=== PATIENT | female | born 1965 | race Caucasian/White ===

== ENCOUNTER → 2016-07-24 | Outpatient (CLI) | payer OTHER ==
[2016-07-24 13:50] LABS: Basophils # (A) 0.1 k/uL (0-0.2); Basophils % (A) 1 %; CH 29.2; CHCM 32.5; Eosinophils # (A) 0.4 k/uL (0-0.7); Eosinophils % (A) 6 %; HCT 39.4 % (34.0-46.0); HDW 2.72; HGB 12.7 gm/dL (11.4-16.0); Luc % (Auto) 3; Lymphocytes # (A) 2.8 k/uL (1.0-4.8); Lymphocytes % (A) 40 %; MCH 29.2 pg (25.0-35.0); MCHC 32.2 g/dL (31.0-37.0); MCV 90.6 fL (80.0-100.0); Mean Platelet Volume 6.1; Monocytes # (A) 0.3 k/uL (0-1.0); Monocytes % (A) 4 %; Neutrophils # (A) 3.2 k/uL (1.3-7.7); Neutrophils % (A) 46 %; RBC 4.35 m/uL (3.80-5.40); RDW 14.4 % (11.5-15.5); WBC 6.9 k/uL (3.8-10.6); WBC (Perox) 7.49
[2016-07-24 13:57] LABS: ALT 32 U/L (9-52); AST 22 U/L (14-36); Alkaline Phosphatase 114 U/L (38-126); Anion Gap 9 mmol/L; Bilirubin, Delta 0.2 mg/dL (0.0-0.2); Blood Urea Nitrogen 17 mg/dL (7-17); Calcium 9.7 mg/dL (8.4-10.2); Carbon Dioxide 28 mmol/L (22-30); Chloride 106 mmol/L (98-107); Cholesterol 305 mg/dL (<200); Glucose 82 mg/dL (74-99); HDL Cholesterol 43 mg/dL (40-60); Non-African American GFR(MDRD) 52 (>60 ml/min/1.73 sqM); Potassium 4.8 mmol/L (3.5-5.1); Sodium 143 mmol/L (137-145); Total Bilirubin 0.3 mg/dL (0.2-1.3); Total Protein 7.2 g/dL (6.3-8.2); Triglycerides 436 mg/dL (<150)
[2016-07-24 14:45] LABS: Vitamin B12 712 pg/mL (239-931)
== END | disposition home or self-care (01) ==
LOC: LABWHC1 13:20
DX: K76.0 Fatty (change of) liver, not elsewhere classified (principal); E78.2 Mixed hyperlipidemia; E55.9 Vitamin D deficiency, unspecified; Z79.899 Other long term (current) drug therapy
CPT/HCPCS: 36415; 80053; 80061; 82105; 82248; 82306; 82607; 84439; 84443; 85025

== ENCOUNTER → 2016-08-31 | Outpatient (CLI) | payer OTHER ==
[2016-08-31 09:52] LABS: Bilirubin, Delta 0.3 mg/dL (0.0-0.2); Total Bilirubin 0.5 mg/dL (0.2-1.3); Total Protein 7.7 g/dL (6.3-8.2)
--- NOTE | 2016-08-31 15:50 | US ---
EXAMINATION TYPE: US portal vein DATE OF EXAM: 08/31/2016 10:56 AM COMPARISON: NONE CLINICAL HISTORY: K76.0 Fatty (change of) liver, not elsewhere class. 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 no IMPRESSION: 1. Mild Fatty infiltration the liver. 2. Normal portal vein flow
== END | disposition home or self-care (01) ==
LOC: RADUSWWP 08:39
DX: K76.0 Fatty (change of) liver, not elsewhere classified (principal)
CPT/HCPCS: 36415; 80076; 93976

== ENCOUNTER → 2017-12-13 | Outpatient (CLI) | payer OTHER ==
--- NOTE | 2017-12-13 13:35 | MM ---
Reason for exam: additional evaluation requested from abnormal screening. Last mammogram was performed less than 1 month ago. History: Patient history of other cancer. Family history of breast cancer in paternal grandmother at age 58 and breast cancer in maternal grandmother at age 65. Taking estrogen beginning at age 49. Physical Findings: Nurse did not find any significant physical abnormalities on exam. MG Work Up Mamm w CAD RT CC and MLO view(s) were taken of the right breast. Prior study comparison: December 06, 2017, bilateral MG screening mammo w CAD. June 10, 2012, CAD bilateral diagnostic mammogram. The breast tissue is heterogeneously dense. This may lower the sensitivity of mammography. Finding: There are coarse heterogeneous, segmental calcifications in the upper outer quadrant, middle position of the right breast 4cm from the nipple. New finding since June 10, 2012. These results were verbally communicated with the patient and result sheet given to the patient on 12/13/17. ASSESSMENT: Suspicious, BI-RAD 4 RECOMMENDATION: Stereotactic core biopsy of the right breast. Called [facility] with mammographic findings and has scheduled an appointment for the patient for 01/03/18 at 12:[address] Harrington. Biopsy scheduled for 01/04/18 at 8:00. PRELIMINARY REPORT CALLED AND FAXED TO DR. HARRINGTON ON 12/13/17.
== END | disposition home or self-care (01) ==
LOC: RADMAMWWP 10:42
PROVIDERS: ATTEND Internal Medicine
DX: R92.8 Other abnormal and inconclusive findings on diagnostic imaging of breast (principal)
CPT/HCPCS: 77065

== ENCOUNTER → 2018-01-03 | Outpatient (CLI) | payer OTHER ==
--- NOTE | 2018-01-03 13:18 | P.GSHP ---
History of Present Illness H&P Date: 01/03/18 The patient is a 52-year-old white female [place] [id number]. On the mammogram she was noted to have new increased calcifications in the central 9 o'clock position of the right breast. The patient was recommended to undergo additional views of the right breast which were performed in which revealed again coarse heterogeneous segmental calcifications in the upper outer quadrant middle position of the right breast. Following this it was recommended she undergo a stereotactic core biopsy of the right breast. The patient does not feel anything in her breast, she has no nipple discharge or skin changes. Family history: 1.mother: bone, breast and colon cancer (dx. 60's) 2. grandmother maternal: bone cancer, breast cancer, and colon cancer (dx. in late 60's) 3. paternal grandmother: breast, uterine cancer (dx. late 60's) Hormonal history: Menarche: 12 Pregnancies: 2, 2 live births first at 20, breast fed: Both Menopause: No. For 3 years but still has hot flashes control pills: Negative Hormones: estrogen for three months Surgical history: 1. shoulder 2. tubal Medical history: Negative Social history: Smoke:1/2 PPD 40 years Alcohol: Negative Drugs: Negative - Constitutional Constitutional: Reports sweats - EENT Eyes: denies blurred vision, denies pain Ears: deny: decreased hearing, tinnitus Ears, nose, mouth and throat: Denies headache, Denies sore throat - Breasts Breasts: bilateral: as per HPI - Cardiovascular Cardiovascular: Denies chest pain, Denies shortness of breath - Respiratory Comment: smoker Respiratory: Reports cough - Gastrointestinal Gastrointestinal: Denies abdominal pain, Denies diarrhea, Denies nausea, Denies vomiting - Genitourinary (Female) Genitourinary: Reports kidney stones - Menstruation Menstruation: Reports postmenopausal - Musculoskeletal Comment: arthritis - Integumentary Integumentary: Denies pruritus, Denies rash - Neurological Comment: carpal tunnel Neurological: Reports numbness, Denies weakness - Psychiatric Comment: bipolar Psychiatric: Reports depression - Endocrine Endocrine: Reports weight change, Denies fatigue - Hematologic/Lymphatic Comment: none - Allergic/Immunologic Comment: none Past Medical History Past Medical History: Liver Disease Additional Past Medical History / Comment(s): Hepatitis B (RESOLVED per patient during phone call on 12/25/17), blood in stool, n/v, KIDNEY STONE, non-alcoholic cirrhosis of liver History of Any Multi-Drug Resistant Organisms: None Reported Past Surgical History: Orthopedic Surgery, Tubal Ligation Additional Past Surgical History / Comment(s): left shoulder surgery x3, coloposcopy for cervical cancer cells. Past Anesthesia/Blood Transfusion Reactions: No Reported Reaction Past Psychological History: Anxiety, Bipolar, Depression Smoking Status: Current every day smoker Past Alcohol Use History: None Reported Past Drug Use History: Marijuana - Past Family History Mother Family Medical History: Cancer Additional Family Medical History / Comment(s): Colon, Bone Father Family Medical History: Cancer Additional Family Medical History / Comment(s): Lung Medications and Allergies Home Medications Medication Instructions Recorded Confirmed Type ARIPiprazole [Abilify] 5 mg PO HS 12/03/13 12/25/17 History Gabapentin [Neurontin] 800 mg PO TID 12/03/13 12/25/17 History hydrOXYzine PAMOATE [Vistaril] 50 mg PO TID 12/03/13 12/25/17 History Allergies Allergy/AdvReac Type Severity Reaction Status Date / Time No Known Allergies Allergy Verified 12/25/17 10:38 Surgical - Exam - General well developed, well nourished, no distress - Eyes normal ocular movement - ENT no hearing loss, no congestion - Neck no masses, trachea midline - Respiratory bilateral: wheezing - Cardiovascular Rhythm: regular Heart Sounds: normal: S1, S2 - Abdomen Abdomen: soft, non tender, bowel sounds, no guarding, no rigid, no rebound - Integumentary Multiple tattoos - Neurologic no disoriented, no combative - Musculoskeletal normal gait, normal posture - Psychiatric oriented to time, oriented to person, oriented to place, speech is normal, memory intact Breast examination: Right breast: Multiple positional exam no dominant masses or nodules of concern Right axilla: No adenopathy of concern Left breast: Multi-positional exam no dominant masses or nodules of concern Left axilla: No dominant adenopathy of concern Results Mammogram report reviewed Assessment and Plan Assessment: Impression: 1. Mammographic abnormality right breast 2. Bipolar 3. Arthritis 4. Nicotine dependence/wheezing Plan: 1. Stereotactic breast biopsy right breast 2. Medical management of medical problems Risk and benefits sister tachycardia breast breast were discussed with the patient and she is scheduled for a stereotactic breast biopsy in the near future. Cc: Dr. Carrillo ([facility])
== END ==
LOC: WWCWWP 12:28
PROVIDERS: ATTEND Surgery
DX: Z53.9 Procedure and treatment not carried out, unspecified reason (principal)

== ENCOUNTER → 2018-01-10 | Day surgery (SDC) | payer OTHER ==
[2018-01-10 07:21] VITALS: RESP 16; BMI 30.7
--- NOTE | 2018-01-10 09:25 | PCN ---
PROCEDURE NOTE PRE PROCEDURE DIAGNOSIS: Right breast mammographic abnormality lateral mid breast. POSTPROCEDURE DIAGNOSIS: Right breast mammographic abnormality lateral mid breast. PROCEDURE: Right breast stereotactic core biopsy. SURGEON: Lachelle Harrington MD INDICATIONS: The patient is a 52-year-old white female who on a screening mammogram was noted to have an area of suspicious calcifications in the right breast in the slightly more lateral midportion of the breast. The films were reviewed and it was felt that stereotactic core biopsy was indicated. The patient on physical examination did not have any dominant masses or nodules in either breast. Both right and left breast mammogram were reviewed. PROCEDURE DESCRIPTION: The patient was taken to the stereotactic core room and placed on the Lorad table. The area in the right breast was approached from a lateral to medial approach. The area was identified on tax map technician film and targeted. Following this, a 9-gauge vacuum-assisted core needle biopsy was chosen for the biopsy procedure. The skin was prepped using Betadine; 1% lidocaine with bicarb was used to anesthetize the skin. Approximately 20 mL was utilized. The needle was driven to the correct coordinates after they had been transmitted. Pre-fire films were obtained. This was noted to be in the correct location and post-fire films were obtained. This was done after the needle device had been fired. Approximately 13 core biopsies were then obtained. Radiograph of the specimen revealed the area of concern had been sampled as microcalcifications which have been targeted were in the specimen. A secure eris top-hat clip was then left behind and confirmed to be in the correct location. The specimen was sent to Pathology. The patient tolerated the procedure in stable condition. The patient will follow with Dr. Ch in approximately 1 week. There were no immediate postoperative complications. MMODL / IJN: [id number] /
[2018-01-10 09:28] VITALS: BP 138/82; PULSE 59; TEMP 98.1
--- NOTE | 2018-01-10 16:23 | MM ---
EXAMINATION TYPE: MG stereo VAD BX RT DATE OF EXAM: 01/10/2018 COMPARISON: 12/06/2017 CLINICAL HISTORY: Abnormal right breast mammogram, calcifications TECHNIQUE: Stereotactic guided core biopsy of right breast. FINDINGS: Targeting and the procedure was performed by surgery. Specimen: Mammographic specimen demonstrates calcifications within the sample Post procedure mammogram was ordered by the surgeon. The core marker appears to be slightly retracted from the expected region of the calcifications. There is a partial resection of the calcifications targeted. Close correlation with pathology results recommended. IMPRESSION: 1. Successful stereotactic core biopsy right breast calcifications. 2. Core marker placement appears slightly shallow which may be related to accordion effect following placement. Close correlation with biopsy results. Pathology Results: Benign RIGHT BREAST, NEEDLE CORE BIOPSY: Fibrocystic spectrum disease with stromal fibrosis, duct cystic changes and focal micropapillary intraductal hyperplasia with apocrine metaplasia. Foci of intraductal mineralizations. Recommendation Follow up mammogram of the right breast in 6 months. MTDD
== END ==
LOC: RADUSWWP 06:51
PROVIDERS: ATTEND Surgery
DX: N60.31 Fibrosclerosis of right breast (principal); N60.91 Unspecified benign mammary dysplasia of right breast; N60.81 Other benign mammary dysplasias of right breast; R92.1 Mammographic calcification found on diagnostic imaging of breast; R92.8 Other abnormal and inconclusive findings on diagnostic imaging of breast
CPT/HCPCS: 88305; 19081; A4648; J2001

== ENCOUNTER → 2018-01-24 | Outpatient (CLI) | payer OTHER ==
[2018-01-24 13:16] VITALS: BP 110/79; PULSE 94; RESP 12; TEMP 98; BMI 27.8
--- NOTE | 2018-01-24 13:33 | P.PN ---
Subjective Progress Note Date: 01/24/18 Principal diagnosis: sterobiopsy of the right breast The patient is a 52-year-old white female status post right breast stereotactic core biopsy on . Pathology was fibrocystic spectrum disease. The patient has no complaints related to the procedure. Physical exam: Extensive inspection of the right breast does not reveal any evidence of infection or skin changes of concern No evidence of hematoma Impression: 1. Fibrocystic breast disease right breast Plan: Repeat right breast mammogram and physician exam in 6 months time CC: Dr. Cervantes/[facility] Objective - Vital Signs Vital signs: Vital Signs Temp 98 F 01/24/18 13:13 Pulse 94 01/24/18 13:13 Resp 12 01/24/18 13:13 BP 110/79 01/24/18 13:13 Pulse Ox 97 01/24/18 13:13 Intake & Output 01/23/18 01/24/18 01/24/18 18:59 06:59 18:59 Weight 71.214 kg
== END ==
LOC: WWCWWP 10:53
PROVIDERS: ATTEND Surgery
DX: Z53.9 Procedure and treatment not carried out, unspecified reason (principal)

== ENCOUNTER → 2018-07-15 | Outpatient (CLI) | payer OTHER ==
--- NOTE | 2018-07-15 11:04 | MM ---
Reason for exam: follow-up at short interval from prior study. Last mammogram was performed 7 months ago. History: Patient is postmenopausal and history of other cancer. Family history of breast cancer in paternal grandmother at age 58 and breast cancer in maternal grandmother at age 65. Benign MG stereo VAD BX RT of the right breast, January 10, 2018. Took estrogen beginning at age 49. Physical Findings: Nurse did not find any significant physical abnormalities on exam. MG Diagnostic Mammo RT w CAD CC and MLO view(s) were taken of the right breast. Prior study comparison: December 13, 2017, right breast MG work up mamm w CAD RT. December 06, 2017, bilateral MG screening mammo w CAD. There are scattered fibroglandular densities. No significant new findings when compared with previous films. These results were verbally communicated with the patient and result sheet given to the patient on 07/15/18. ASSESSMENT: Benign, BI-RAD 2 RECOMMENDATION: Return to routine screening mammogram schedule for both breasts. Back on schedule.
== END ==
LOC: RADMAMWWP 10:10
PROVIDERS: ATTEND Surgery
DX: R92.8 Other abnormal and inconclusive findings on diagnostic imaging of breast (principal)
CPT/HCPCS: 77065

== ENCOUNTER 2018-08-19 11:12 | Emergency (ER) | payer OTHER ==
[2018-08-19 11:39] VITALS: BP 128/80; PULSE 64; RESP 20; TEMP 98.1
--- NOTE | 2018-08-19 11:49 | ED ---
Skin/Abscess/FB HPI - General Chief complaint: Skin/Abscess/Foreign Body Stated complaint: left arm injury, infection Time Seen by Provider: 08/19/18 11:41 Source: patient Mode of arrival: ambulatory Limitations: no limitations - History of Present Illness Initial comments: 52yo female with history of present today for chief complaint of erythema of the left forearm x 1 day. She states she fell onto a sydni basket she states it poked into her skin on Sunday. Patient states she noted green discharge car. Yesterday she states she squeezed it out. She states there is mild surrounding redness. Patient states that she squeezed out apply peroxide appears to be improving since yesterday. Patient has a fever chills night sweats. Patient denies history of MRSA. Remaining ROS (-). Pt tetanus 3 year prior. - Related Data Home Medications Medication Instructions Recorded Confirmed ARIPiprazole [Abilify] 5 mg PO HS 12/03/13 08/19/18 Gabapentin [Neurontin] 800 mg PO TID 12/03/13 08/19/18 hydrOXYzine PAMOATE [Vistaril] 50 mg PO BID 12/03/13 08/19/18 Lisinopril-Hctz 10-12.5 mg 10 tab PO DAILY 01/03/18 08/19/18 [Zestoretic 10-12.5] Ergocalciferol [Vitamin D2] 50,000 unit PO Q7D 08/19/18 08/19/18 Multivitamins, Thera [Multivitamin 1 tab PO DAILY 08/19/18 08/19/18 (formulary)] Simvastatin [Zocor] 20 mg PO DAILY 08/19/18 08/19/18 Previous Rx's Medication Instructions Recorded Cephalexin [Keflex] 500 mg PO Q6HR 5 Days #20 cap 08/19/18 Sulfamethox-Tmp 800-160Mg [Bactrim 1 tab PO Q12HR 5 Days #10 tab 08/19/18 DS 800-160 mg] Allergies Allergy/AdvReac Type Severity Reaction Status Date / Time No Known Allergies Allergy Verified 08/19/18 11:53 Review of Systems ROS Statement: Those systems with pertinent positive or pertinent negative responses have been documented in the HPI. ROS Other: All systems not noted in ROS Statement are negative. Past Medical History Past Medical History: Hypertension, Liver Disease Additional Past Medical History / Comment(s): Hepatitis B (RESOLVED per patient during phone call on 12/25/17), KIDNEY STONE, non-alcoholic cirrhosis of liver History of Any Multi-Drug Resistant Organisms: None Reported Past Surgical History: Orthopedic Surgery, Tubal Ligation Additional Past Surgical History / Comment(s): left shoulder surgery x3, coloposcopy for cervical cancer cells. Past Anesthesia/Blood Transfusion Reactions: No Reported Reaction Past Psychological History: Anxiety, Bipolar, Depression Smoking Status: Current every day smoker Past Alcohol Use History: None Reported Past Drug Use History: Marijuana - Past Family History Mother Family Medical History: Cancer Additional Family Medical History / Comment(s): Colon, Bone Father Family Medical History: Cancer Additional Family Medical History / Comment(s): Lung General Exam - General Exam Comments Initial Comments: General: The patient is awake and alert, in no distress, and does not appear acutely ill. Eye: +3 mm pupils are equal, round and reactive to light, extra-ocular movements are intact. No nystagmus. There is normal conjunctiva bilaterally. No signs of icterus. Ears, nose, mouth and throat: There are moist mucous membranes and no oral lesions. Cardiovascular: There is a regular rate and rhythm. No murmur, rub or gallop is appreciated. Respiratory: Lungs are clear to auscultation, respirations are non-labored, breath sounds are equal. No wheezes, stridor, rales, or rhonchi. Gastrointestinal: Soft, non-distended, non-tender abdomen without masses or organomegaly noted. There is no rebound or guarding present. No CVA tenderness. Bowel sounds are unremarkable. Musculoskeletal: Normal ROM at the elbow and the wrist, no tenderness. Strength 5/5 at the elbow and the wrist. Sensation intact both proximal and distal injury site. Radial pulses equal bilaterally 2+. Neurological: A&O x 3. CN II-XII intact, There are no obvious motor or sensory deficits. Coordination appears grossly intact. Speech is normal. Skin: Skin is warm and dry and no rashes. Multiple abrasion with scabbing and surrounding erythema of the left forearm. There is no palpable fluctuant abscess. No warmth to palpation. Psychiatric: Cooperative, appropriate mood & affect, normal judgment. Limitations: no limitations Course Vital Signs 08/19/18 11:37 Temperature 98.1 F Pulse Rate 64 Respiratory 20 Rate Blood Pressure 128/80 O2 Sat by Pulse 99 Oximetry Medical Decision Making - Medical Decision Making 52-year-old presenting for left arm abrasions with possible infection. There is mild surrounding cellulitis noted to abrasions of the left forearm. Patient states tetanus up-to-date. No fluctuant abscess. Patient states is improving since yesterday. She denies any constitutional symptoms. At this time feel patient is appropriate for discharge with outpatient oral antibiotics. Possible concern for MRSA infection, patient be treated with Bactrim and Keflex with outpatient primary care f/u. Pt is agreeable with care plan and discharge at this time. This case with attending provider Dr. Almaraz over the phone prior to patient discharge agreeable with plan. Disposition Clinical Impression: Cellulitis of left forearm, Pain in left forearm, Abrasion of left forearm Disposition: HOME SELF-CARE Condition: Good Instructions (If sedation given, give patient instructions): Cellulitis (ED) Additional Instructions: Please use medication as discussed. Please follow-up with family doctor in the next 2 days. Please return to emergency room if the symptoms increase or worsen or for any other concerns. Prescriptions: Sulfamethox-Tmp 800-160Mg [Bactrim DS 800-160 mg] 1 tab PO Q12HR 5 Days #10 tab Cephalexin [Keflex] 500 mg PO Q6HR 5 Days #20 cap Is patient prescribed a controlled substance at d/c from ED?: No Referrals: [facility] [Primary Care Provider] - 1-2 days Time of Disposition: 11:48
== END 2018-08-19 12:40 | disposition home or self-care (01) ==
LOC: SUPCPDRO 11:12 → EC 11:12
DX: S50.812A Abrasion of left forearm, initial encounter (principal); L03.114 Cellulitis of left upper limb; I10 Essential (primary) hypertension; F31.9 Bipolar disorder, unspecified; F41.9 Anxiety disorder, unspecified; F17.200 Nicotine dependence, unspecified, uncomplicated; Z85.41 Personal history of malignant neoplasm of cervix uteri; Z86.19 Personal history of other infectious and parasitic diseases; Z79.899 Other long term (current) drug therapy; W01.0XXA Fall on same level from slipping, tripping and stumbling without subsequent striking against object, initial encounter; Y92.009 Unspecified place in unspecified non-institutional (private) residence as the place of occurrence of the external cause
CPT/HCPCS: 99283

== ENCOUNTER → 2019-05-16 | Day surgery (SDC) | payer OTHER ==
[2019-05-14 09:01] VITALS: BMI 29.2
[~2019-05-16] MED LIST: BUPIVACAINE (PF) 0.5% 30 ML VIAL SQ ONE; DEXAMETHASONE SOD PHOSPHATE 10 MG/ML 1 ML VIAL IV ONE; HYDROmorphone 0.5 MG/0.5 ML SYRINGE IVP PRN; LACTATED RINGERS 1,000 ML IV SCH; LIDOCAINE 1% 20 ML VIAL (10MG/ML) FOR IV START INTRADERMA PRN; LIDOCAINE 1%-EPI 1:100,000 20 ML VIAL SQ ONE; MIDAZOLAM 2 MG/2 ML VIAL ONE; PHENYLEPHRINE-0.9% NACL SYG 1 MG/10 ML SYRINGE ONE; PROPOFOL 10 MG/ML 20 ML VIAL IV ONE; Pre Op ABX Message 1 EACH MISC MISCELLANE ONE; SCOPOLAMINE 1.5MG/72HR PATCH TRANSDERM ONE; fentaNYL (PF) 50 MCG/ML 2 ML AMP ONE
[2019-05-16 11:15] VITALS: RESP 16; TEMP 96.9
[2019-05-16 13:45] VITALS: BP 155/84; PULSE 64
--- NOTE | 2019-05-17 15:08 | P.OP ---
Date of Procedure: 05/16/19 Preoperative Diagnosis: Right carpal tunnel syndrome Postoperative Diagnosis: Right carpal tunnel syndrome Procedure(s) Performed: Right endoscopic carpal tunnel release Anesthesia: MAC, local Surgeon: Tyson Pgeuero Estimated Blood Loss (ml): 1 Condition: stable Disposition: same day Indications for Procedure: The patient is a 53 year-old female who was diagnosed with right carpal tunnel syndrome. Treatment options (and associated risks and benefits) were discussed in the office. The patient elected to undergo surgical release. In preop, additional questions/concerns were addressed and the patient wished to proceed with surgery. Consent forms were signed. The operative site was confirmed and marked. Description of Procedure: The patient was positioned supine with the right arm on a hand table. A tourniquet was applied. Anesthesia was administered uneventfully. A time-out was performed, confirming patient identifiers, the operative side, site and the procedure to be performed: all team members expressed agreement. Using aseptic technique, local anesthetic was injected into the subcutaneous tissues around the planned incision. The right upper extremity was then prepped and draped in standard, sterile fashion. The limb was exsanguinated with an Esmarch and the tourniquet was inflated. Loupe magnification was used throughout the case for optimum visualization. A 1.5 cm transverse incision was marked along the radial border of the ring finger, just proximal to the wrist flexion crease. The skin was sharply incised and the subcutaneous tissues were bluntly spread. The volar carpal fascia was identified and sharply incised in line with the path of the nerve. The median nerve was visualized below. A synovial elevator was inserted and used to release adhesions on the underside of the transverse carpal ligament. The washboard effect was palpable. A dilator was inserted to sound and enlarge the carpal tunnel. The hamate hook was palpable ulnarly. The side-specific guide and camera were inserted. The transverse carpal ligament was clearly visualized above. The distal edge of the ligament was identified and palpated with a probe. A rasp was used to clear the remaining synovial adhesions. The endoscopic blade was inserted and the distal half of the ligament was sharply incised. Residual distal transverse fibers were released and then the proximal portion of the ligament was divided. Wide release of ligament was visually confirmed. The camera and guide were removed. Proximal to the incision, the volar carpal/antebrachial fascia was released with scissors under direct visualization. The tourniquet was released after 9 minutes at 250 mmHg. Good hemostasis was obtained with manual pressure. A small bleeder near the skin edge was controlled with bipolar cautery. The wound was thoroughly irrigated with normal saline. The incision was closed with interrupted 4-0 Nylon sutures. Additional local anesthetic with epinephrine was injected for adjunctive postoperative pain control and hemostasis. A soft, sterile dressing was applied. All sponge, needle and instrument counts were correct at the end of the case. The patient tolerated the procedure well; she was transferred to recovery in stable condition.
== END | disposition home or self-care (01) ==
LOC: OR 10:57
PROVIDERS: ATTEND Orthopaedic Surgery
DX: G56.01 Carpal tunnel syndrome, right upper limb (principal); I10 Essential (primary) hypertension; E78.5 Hyperlipidemia, unspecified; F17.210 Nicotine dependence, cigarettes, uncomplicated; N28.9 Disorder of kidney and ureter, unspecified; F32.9 Major depressive disorder, single episode, unspecified; H40.9 Unspecified glaucoma; R51 Headache; R45.0 Nervousness; Z79.899 Other long term (current) drug therapy; Z97.3 Presence of spectacles and contact lenses; Z82.49 Family history of ischemic heart disease and other diseases of the circulatory system
CPT/HCPCS: 64721; J2250; J1100; J3010; J2370; J2704

== ENCOUNTER 2019-11-07 11:13 | Day surgery (SDC) | payer OTHER ==
[2019-11-04 10:47] VITALS: BMI 29.2
[~2019-11-07 11:13] MED LIST changes: -BUPIVACAINE (PF) 0.5% 30 ML VIAL SQ ONE; +LIDOCAINE 1% (10MG/ML) FOR IV START INTRADERMA PRN; -LIDOCAINE 1% 20 ML VIAL (10MG/ML) FOR IV START INTRADERMA PRN; -LIDOCAINE 1%-EPI 1:100,000 20 ML VIAL SQ ONE; -MIDAZOLAM 2 MG/2 ML VIAL ONE; +ONDANSETRON 4 MG/2 ML VIAL IVP ONE; -PHENYLEPHRINE-0.9% NACL SYG 1 MG/10 ML SYRINGE ONE; -PROPOFOL 10 MG/ML 20 ML VIAL IV ONE; -fentaNYL (PF) 50 MCG/ML 2 ML AMP ONE
[2019-11-07 11:37] VITALS: RESP 16; TEMP 98.4
[2019-11-07] MEDS ORDERED: ONDANSETRON 4 MG/2 ML VIAL ONE (11:43)
[2019-11-07] MEDS ORDERED: LIDOCAINE 1%-EPI 1:100,000 20 ML VIAL INTRAARTIC ONE ×2 (12:26→12:55)
[2019-11-07] MEDS ORDERED: fentaNYL (PF) 50 MCG/ML 2 ML AMP ONE (12:44)
[2019-11-07] MEDS ORDERED: MIDAZOLAM 2 MG/2 ML VIAL ONE (12:44)
[2019-11-07] MEDS ORDERED: KETOROLAC 30 MG/ML 1 ML VIAL ONE (12:44)
[2019-11-07] MEDS ORDERED: PROPOFOL 10 MG/ML 20 ML VIAL IV ONE (12:44)
[2019-11-07 14:06] VITALS: PULSE 79
[2019-11-07 14:22] VITALS: BP 152/82
--- NOTE | 2019-11-09 17:11 | P.OP ---
Date of Procedure: 11/07/19 Preoperative Diagnosis: 1. Left carpal tunnel syndrome 2. Right trigger thumb Postoperative Diagnosis: 1. Left carpal tunnel syndrome 2. Right trigger thumb Procedure(s) Performed: 1. Left endoscopic carpal tunnel release 2. Right trigger thumb release Anesthesia: MAC, local Surgeon: Tyson Peguero Estimated Blood Loss (ml): 4 ((1 left, 3 right)) Condition: stable Disposition: same day Indications for Procedure: The patient is 53-year-old female who was diagnosed with left carpal tunnel s yndrome and a right trigger thumb. Treatment options (and associated risks and benefits) for both conditions were discussed in the office; the patient elected to undergo surgical release of both sites. In preop, additional questions were addressed and the patient wished to proceed with surgery. Consent forms were signed. Both operative sites were confirmed with the patient and marked in preop. Description of Procedure: The patient was brought to the operating suite and positioned supine. The carpal tunnel was approached first and the left arm was placed on a hand table. A tourniquet was applied. Anesthesia was administered uneventfully. A time-out was performed, confirming patient identifiers, the operative side, site and the procedure to be performed: all team members expressed agreement. Using aseptic technique, local anesthetic was injected into the subcutaneous tissues around the planned incisions, both in the left wrist and right thumb. The left upper extremity was then prepped and draped in standard, sterile fashion. The limb was exsanguinated with an Esmarch and the tourniquet was inflated. Loupe magnification was used throughout the case for optimum visualization. A 1.5 cm transverse incision was marked proximal to the wrist flexion crease, in line with the radial border of the ring finger. The skin was sharply incised and the subcutaneous tissues were bluntly spread. The volar carpal fascia was identified and noted to be quite thickened, causing focal compression. The volar carpal fascia was sharply incised in line with the path of the nerve and the antebrachial fascia proximally was also released with scissors under direct visualization. The median nerve was visualized below. The surrounding subcutaneous tissues were somewhat thickened and proliferative, consistent with a chronic inflammatory response. A synovial elevator was inserted and used to release adhesions on the underside of the transverse carpal ligament. The washboard effect was palpable. A dilator was inserted to sound and enlarge the carpal tunnel. The hamate hook was palpable ulnarly. The side-specific guide and camera were inserted. The transverse carpal ligament was clearly visualized above. The distal edge of the ligament was identified and palpated with a probe. A rasp was used to clear the remaining synovial adhesions. The endoscopic blade was inserted and the distal half of the ligament was sharply incised it was quite thick. Residual distal transverse fibers were released and then the proximal portion of the ligament was divided. Once completely released, the leaflets spread widely apart. The camera and guide were removed. The tourniquet was released after 14 minutes at 175 mmHg. Excellent hemostasis was obtained with manual pressure. The wound was thoroughly irrigated with normal saline. The incision was closed with interrupted 4-0 Nylon sutures. Additional local anesthetic with epinephrine was injected for adjunct postoper ative pain control and hemostasis. A soft, sterile dressing was applied. All sponge, needle and instrument counts were correct at the end of the case. Attention was turned to the right thumb. The right upper extremity was then prepped and draped in standard, sterile fashion. A time-out was performed, reconfirming patient identifiers, the operative side, the site and the procedure to be performed: all team members expressed agreement. No tourniquet was used. Loupe magnification was utilized throughout the case for optimum visualization. A transverse incision was made in the MCP flexion crease. Blunt, spreading dissection proceeded down to the flexor sheath, taking care to protect the adjacent neurovascular bundles. The subcutaneous tissues above the sheath were substantially thickened, dense and adherent these were carefully released and mobilized. A moderate amount of proliferative tenosynovial tissue was present over the A1 nayan and along the proximal flexor sheath, consistent with long- standing irritation. The A1 nayan was identified and sharply incised longitudinally. Peritentinous adhesions along the course of the tendon were released with scissors. The FPL tendon was gently elevated out of the wound with a Ragnell retractor, demonstrating good tendon excursion and passive IP flexion. The tendon was released and allowed to retract back to its anatomic position. Passive motion of the digit demonstrated smooth tendon gliding without appreciable catching, triggering or focal restriction. Good hemostasis was maintained throughout the case without the need for a tourniquet. The wound was thoroughly irrigated with normal saline and the incision was closed with interrupted 4-0 Nylon sutures. A soft, sterile dressing was applied. All sponge, needle and instrument counts were correct at the end of the case. The patient tolerated the procedures well and was transferred to recovery in stable condition.
== END 2019-11-07 14:46 | disposition home or self-care (01) ==
LOC: OR 11:13
PROVIDERS: ATTEND Orthopaedic Surgery
DX: G56.02 Carpal tunnel syndrome, left upper limb (principal); M65.311 Trigger thumb, right thumb; E78.5 Hyperlipidemia, unspecified; I12.9 Hypertensive chronic kidney disease with stage 1 through stage 4 chronic kidney disease, or unspecified chronic kidney disease; N18.9 Chronic kidney disease, unspecified; F32.9 Major depressive disorder, single episode, unspecified; I73.00 Raynaud's syndrome without gangrene; K75.81 Nonalcoholic steatohepatitis (NASH); R45.0 Nervousness; R51 Headache; Z97.3 Presence of spectacles and contact lenses; Z82.49 Family history of ischemic heart disease and other diseases of the circulatory system; F17.210 Nicotine dependence, cigarettes, uncomplicated; M25.512 Pain in left shoulder; Z97.2 Presence of dental prosthetic device (complete) (partial); Z98.890 Other specified postprocedural states; Z79.899 Other long term (current) drug therapy
CPT/HCPCS: 29848; 26055; J2250; J1100; J2405; J3010; J1885; J2704

== ENCOUNTER 2020-02-16 22:36 | Emergency (ER) | payer OTHER ==
[2020-02-16 22:40] VITALS: RESP 18; TEMP 97.6
[2020-02-16] MEDS ORDERED: SODIUM CHLORIDE 0.9% 1,000 ML IV STA (22:49)
[2020-02-16] MEDS ORDERED: KETOROLAC 15 MG/ML 1 ML VIAL IVP STA (22:49)
[2020-02-16 23:22] LABS: Basophils # (A) 0.1 k/uL (0-0.2); Basophils % (A) 1 %; Eosinophils # (A) 0.7 k/uL (0-0.7); Eosinophils % (A) 5 %; HCT 39.3 % (34.0-46.0); HGB 13.6 gm/dL (11.4-16.0); Lymphocytes % (A) 21 %; MCH 31.1 pg (25.0-35.0); MCHC 34.5 g/dL (31.0-37.0); MCV 90.3 fL (80.0-100.0); Mean Platelet Volume 6.2; Monocytes # (A) 0.7 k/uL (0-1.0); Monocytes % (A) 5 %; Neutrophils # (A) 9.1 k/uL (1.3-7.7); Neutrophils % (A) 66 %; Platelet Count 401 k/uL (150-450); RBC 4.36 m/uL (3.80-5.40); WBC 13.8 k/uL (3.8-10.6)
[2020-02-16 23:25] LABS: Appearance,Urine Clear (Clear); Bilirubin,Urine Negative (Negative); Blood,Urine Negative (Negative); Color,Urine Colorless; Glucose,Urine (UA) Negative (Negative); Ketones,Urine Negative (Negative); Leukocyte Esterase,Urine Negative (Negative); Nitrite,Urine Negative (Negative); Protein,Urine Negative (Negative); Specific Gravity,Urine 1.002 (1.001-1.035); Urobilinogen,Urine <2.0 mg/dL (<2.0)
[2020-02-16 23:31] LABS: Albumin 4.5 g/dL (3.5-5.0); Calcium 9.8 mg/dL (8.4-10.2); Potassium 4.2 mmol/L (3.5-5.1); Total Bilirubin 0.4 mg/dL (0.2-1.3); Total Protein 7.6 g/dL (6.3-8.2)
--- NOTE | 2020-02-16 23:56 | CT ---
EXAMINATION TYPE: CT abdomen pelvis w con DATE OF EXAM: 02/16/2020 COMPARISON: 09/08/2015 HISTORY: Right Abdominal pain CT DLP: 1058.4 mGycm Automated exposure control for dose reduction was used. CONTRAST: Performed with IV Contrast, patient injected with 100 mL of Isovue 300. The lung bases are clear of consolidation. There is no pleural effusion. Heart size is normal. Liver spleen stomach pancreas gallbladder appear intact. There is single 1 cm calcified gallstone. Th e bile ducts are not dilated. There is no adrenal mass. Kidneys show satisfactory contrast opacification. There is no hydronephrosi s. Ureters are not dilated. There is no retroperitoneal adenopathy. Bladder distends smoothly. There is no inguinal hernia. There is no free fluid in the pelvis. Appendix is posterior and appears normal . There is no mesenteric edema. There is no ascites or free air. There is no evidence of a pelvic mass. The lumbar vertebra have fairly normal spacing and alignment. Posterior elements are intact. There is no compression fracture. Bony pelvis is intact. Hip joints are intact. IMPRESSION: There is a single calcified gallstone that appears new compared to old exam. Otherwise negative exam.
[2020-02-17] MEDS ORDERED: ONDANSETRON 4 MG/2 ML VIAL IVP STA (00:06)
[2020-02-17] MEDS ORDERED: HYDROmorphone 0.5 MG/0.5 ML SYRINGE IVP STA (00:07)
--- NOTE | 2020-02-17 00:29 | ED ---
General Adult HPI - General Chief complaint: Abdominal Pain Stated complaint: lower back pain Time Seen by Provider: 02/16/20 22:41 Source: patient, RN notes reviewed Mode of arrival: ambulatory Limitations: no limitations - History of Present Illness Initial comments: 54-year-old female presents to the emergency department for a chief of right side pain. Patient reports she has had right side pain for about a week now however this has been worsening. Today the pain was not tolerable. Patient states it radiates into the right side of the abdomen. Patient denies nausea vomiting. She denies fevers or chills. Reports that she did have a bowel m ovement a couple days ago which significantly helped with her pain however return. Patient has had 2 more bowel movements since that time without relief.Patient has no other complaints at this time including shortness of breath, chest pain, nausea or vomiting, headache, or visual changes. - Related Data Home Medications Medication Instructions Recorded Confirmed ARIPiprazole [Abilify] 5 mg PO DAILY 12/03/13 02/16/20 Gabapentin [Neurontin] 800 mg PO TID 12/03/13 02/16/20 hydrOXYzine pamoate [Vistaril] 50 mg PO QAM 12/03/13 02/16/20 Multivitamins, Thera [Multivitamin 1 tab PO DAILY 08/19/18 02/16/20 (formulary)] Cholecalciferol [Vitamin D3 (25 5,000 unit PO DAILY 05/14/19 02/16/20 Mcg = 1000 Iu)] Ezetimibe [Zetia] 10 mg PO DAILY 05/14/19 02/16/20 Fenofibrate Nanocrystallized 48 mg PO DAILY 10/22/19 02/16/20 [Tricor] Venlafaxine HCl [Effexor XR] 150 mg PO QAM 10/22/19 02/16/20 hydrOXYzine pamoate [Vistaril] 100 mg PO HS 10/22/19 02/16/20 lisinopriL [Zestril] 10 mg PO QAM 10/22/19 02/16/20 Albuterol Inhaler [Ventolin Hfa 1 - 2 puff INHALATION RT-Q4H PRN 02/16/20 02/16/20 Inhaler] Allergies Allergy/AdvReac Type Severity Reaction Status Date / Time No Known Allergies Allergy Verified 02/16/20 22:41 Review of Systems ROS Statement: Those systems with pertinent positive or pertinent negative responses have been documented in the HPI. ROS Other: All systems not noted in ROS Statement are negative. Past Medical History Past Medical History: Cancer, Hyperlipidemia, Hypertension, Liver Disease, Osteoarthritis (OA) Additional Past Medical History / Comment(s): Hx of Hepatitis B, Non-Alcoholic Cirrhosis of liver, kidney stones, Cervical cancer. History of Any Multi-Drug Resistant Organisms: None Reported Past Surgical History: Orthopedic Surgery, Tubal Ligation Additional Past Surgical History / Comment(s): Left shoulder surgery X4 with pins & screws, coloposcopy -CERVICAL, D&C. Past Anesthesia/Blood Transfusion Reactions: No Reported Reaction Past Psychological History: Anxiety, Bipolar, Depression Smoking Status: Current every day smoker Past Alcohol Use History: Occasional Past Drug Use History: Marijuana - Past Family History Mother Family Medical History: Cancer Additional Family Medical History / Comment(s): Colon, Bone Cancer. Father Family Medical History: Cancer Additional Family Medical History / Comment(s): Lung Cancer. General Exam Limitations: no limitations General appearance: alert, in no apparent distress Head exam: Present: atraumatic, normocephalic, normal inspection Eye exam: Present: normal appearance, PERRL, EOMI. Absent: scleral icterus, conjunctival injection, periorbital swelling ENT exam: Present: normal exam, mucous membranes moist Neck exam: Present: normal inspection, full ROM. Absent: tenderness, meningismus, lymphadenopathy Respiratory exam: Present: normal lung sounds bilaterally. Absent: respiratory distress, wheezes, rales, rhonchi, stridor Cardiovascular Exam: Present: regular rate, normal rhythm, normal heart sounds. Absent: systolic murmur, diastolic murmur, rubs, gallop, clicks GI/Abdominal exam: Present: soft, tenderness (Tenderness noted right upper quadrant. No lower abdominal tenderness or left upper quadrant tenderness.), normal bowel sounds. Absent: distended, guarding, rebound, rigid Course Vital Signs 02/16/20 22:38 Temperature 97.6 F Pulse Rate 75 Respiratory 18 Rate Blood Pressure 136/78 O2 Sat by Pulse 98 Oximetry Procedures - [place] Protocol (Time Out) Nurse: Ibeth Jean Baptiste Medical Decision Making - Medical Decision Making Vitals are stable. Patient is afebrile. Patient does have leukocytosis with a left shift which is likely reactive. CMP shows slight elevation in creatinine likely related to dehydration. Elevated lactic acid is likely related to dehydration as well. Liver enzymes are normal. Bilirubin 0.4. Slight elevation in lipase at 562. Urinalysis is unremarkable. CT abdomen and pelvis was initially obtained which shows a single calcified gallstone that appears new compared to the old exam of 2016. Otherwise negative exam. Ultrasound shows cholelithiasis without imaging findings of acute cholecystitis or biliary dilation. Patient was given pain medication and reevaluation. She had significant improvement in pain. Discussed inpatient versus outpatient management. Patient agreeable to outpatient management with pain medication and follow-up to general surgery. She is agreeable to returning if pain worsens, she gets fevers, or any other worsening symptoms.I discussed this case with attending Dr. vicente who agrees with this assessment and treatment plan. - Lab Data Result diagrams: 02/16/20 23:11 02/16/20 23:11 Lab Results 02/16/20 02/16/20 02/16/20 Range/Units 23:11 23:11 23:11 WBC 13.8 H (3.8-10.6) k/uL RBC 4.36 (3.80-5.40) m/uL Hgb 13.6 (11.4-16.0) gm/dL Hct 39.3 (34.0-46.0) % MCV 90.3 (80.0-100.0) fL MCH 31.1 (25.0-35.0) pg MCHC 34.5 (31.0-37.0) g/dL RDW 14.0 (11.5-15.5) % Plt Count 401 (150-450) k/uL Neutrophils % 66 % Lymphocytes % 21 % Monocytes % 5 % Eosinophils % 5 % Basophils % 1 % Neutrophils # 9.1 H (1.3-7.7) k/uL Lymphocytes # 3.0 (1.0-4.8) k/uL Monocytes # 0.7 (0-1.0) k/uL Eosinophils # 0.7 (0-0.7) k/uL Basophils # 0.1 (0-0.2) k/uL Sodium 135 L (137-145) mmol/L Potassium 4.2 (3.5-5.1) mmol/L Chloride 103 (98-107) mmol/L Carbon Dioxide 25 (22-30) mmol/L Anion Gap 7 mmol/L BUN 14 (7-17) mg/dL Creatinine 1.05 H (0.52-1.04) mg/dL Est GFR (CKD-EPI)AfAm 69 (>60 ml/min/1.73 sqM) Est GFR (CKD-EPI)NonAf 60 (>60 ml/min/1.73 sqM) Glucose 119 H (74-99) mg/dL Lactic Ac Sepsis Rflx Plasma Lactic Acid Wayne (0.7-2.0) mmol/L Calcium 9.8 (8.4-10.2) mg/dL Total Bilirubin 0.4 (0.2-1.3) mg/dL AST 35 (14-36) U/L ALT 29 (4-34) U/L Alkaline Phosphatase 98 (38-126) U/L Total Protein 7.6 (6.3-8.2) g/dL Albumin 4.5 (3.5-5.0) g/dL Amylase 100 (30-110) U/L Lipase 562 H (23-300) U/L Urine Color Colorless Urine Appearance Clear (Clear) Urine pH 6.0 (5.0-8.0) Ur Specific [place] 1.002 (1.001-1.035) Urine Protein Negative (Negative) Urine Glucose (UA) Negative (Negative) Urine Ketones Negative (Negative) Urine Blood Negative (Negative) Urine Nitrite Negative (Negative) Urine Bilirubin Negative (Negative) Urine Urobilinogen <2.0 (<2.0) mg/dL Ur Leukocyte Esterase Negative (Negative) 02/16/20 02/16/20 Range/Units 23:11 23:50 WBC (3.8-10.6) k/uL RBC (3.80-5.40) m/uL Hgb (11.4-16.0) gm/dL Hct (34.0-46.0) % MCV (80.0-100.0) fL MCH (25.0-35.0) pg MCHC (31.0-37.0) g/dL RDW (11.5-15.5) % Plt Count (150-450) k/uL Neutrophils % % Lymphocytes % % Monocytes % % Eosinophils % % Basophils % % Neutrophils # (1.3-7.7) k/uL Lymphocytes # (1.0-4.8) k/uL Monocytes # (0-1.0) k/uL Eosinophils # (0-0.7) k/uL Basophils # (0-0.2) k/uL Sodium (137-145) mmol/L Potassium (3.5-5.1) mmol/L Chloride (98-107) mmol/L Carbon Dioxide (22-30) mmol/L Anion Gap mmol/L BUN (7-17) mg/dL Creatinine (0.52-1.04) mg/dL Est GFR (CKD-EPI)AfAm (>60 ml/min/1.73 sqM) Est GFR (CKD-EPI)NonAf (>60 ml/min/1.73 sqM) Glucose (74-99) mg/dL Lactic Ac Sepsis Rflx Y Plasma Lactic Acid Wayne 2.2 H* (0.7-2.0) mmol/L Calcium (8.4-10.2) mg/dL Total Bilirubin (0.2-1.3) mg/dL AST (14-36) U/L ALT (4-34) U/L Alkaline Phosphatase (38-126) U/L Total Protein (6.3-8.2) g/dL Albumin (3.5-5.0) g/dL Amylase (30-110) U/L Lipase (23-300) U/L Urine Color Urine Appearance (Clear) Urine pH (5.0-8.0) Ur Specific [place] (1.001-1.035) Urine Protein (Negative) Urine Glucose (UA) (Negative) Urine Ketones (Negative) Urine Blood (Negative) Urine Nitrite (Negative) Urine Bilirubin (Negative) Urine Urobilinogen (<2.0) mg/dL Ur Leukocyte Esterase (Negative) Disposition Clinical Impression: Cholelithiasis, Elevated lipase Disposition: HOME SELF-CARE Condition: Good Instructions (If sedation given, give patient instructions): Gallstones (ED) Additional Instructions: Please follow up with the surgeon by calling for an appointment tomorrow. Take Tylenol 3 as needed for pain but do not drive while taking this. If you're having worsening symptoms such as worsening abdominal pain or fevers return to the emergency room. Is patient prescribed a controlled substance at d/c from ED?: No Referrals: [facility] [Primary Care Provider] - 1-2 days Contreras Nunez MD [STAFF PHYSICIAN] - 1-2 days Time of Disposition: 02:00
--- NOTE | 2020-02-17 01:06 | US ---
EXAM: US Abdomen Limited, Gallbladder CLINICAL HISTORY: ITS.REASON US Reason: pain TECHNIQUE: Real-time ultrasound of the right upper quadrant with image documentation. COMPARISON: No relevant prior studies available. FINDINGS: Liver: Enlarged liver measuring 19.6 cm. Diffusely increased liver echogenicity. Patent, normally directed portal vein. No intrahepatic biliary dilatation. Gallbladder: Cholelithiasis without gallbladder wall thickening or pericholecystic fluid. Sonographic Villatoro's sign is reported as positive. Common bile duct: Common bile duct obscured by bowel gas. Normal caliber common hepatic duct measuring 3 mm. Pancreas: Unremarkable as visualized. Right kidney: Right kidney measures 10.2 cm. No hydronephrosis. Free fluid: No ascites. IMPRESSION: 1. Cholelithiasis without imaging findings of acute cholecystitis or biliary dilatation. However, sonographic Villatoro's sign reported as positive. Correlate clinically. 2. Hepatomegaly and steatosis.
[2020-02-17] MEDS ORDERED: ACET/COD 300 MG/30 MG STARTER PACK 6 TAB BTL PO STA (01:59)
[2020-02-17 02:05] VITALS: BP 132/71; PULSE 67
== END 2020-02-17 02:10 | disposition home or self-care (01) ==
LOC: EC 22:36
DX: K80.20 Calculus of gallbladder without cholecystitis without obstruction (principal); R74.8 Abnormal levels of other serum enzymes; D72.829 Elevated white blood cell count, unspecified; R79.89 Other specified abnormal findings of blood chemistry; F17.200 Nicotine dependence, unspecified, uncomplicated; F41.9 Anxiety disorder, unspecified; F31.9 Bipolar disorder, unspecified; E78.5 Hyperlipidemia, unspecified; I10 Essential (primary) hypertension; M19.90 Unspecified osteoarthritis, unspecified site; K70.30 Alcoholic cirrhosis of liver without ascites; Z79.899 Other long term (current) drug therapy; Z85.41 Personal history of malignant neoplasm of cervix uteri
CPT/HCPCS: 36415; 80053; 82150; 83605; 83690; 85025; 81003; 76705; 74177; 99284; 96374; 96375 ×2; 96361; J2405; J1885; J1170; Q9967

== ENCOUNTER 2020-02-17 11:31 | Observation (INO) | payer OTHER ==
[2020-02-17] MEDS ORDERED: SODIUM CHLORIDE 0.9% 1,000 ML IV STA (13:16)
[2020-02-17] MEDS ORDERED: PANTOPRAZOLE 40 MG/10 ML VIAL IVP STA (13:16)
[2020-02-17] MEDS ORDERED: HYDROmorphone 1 MG/ML 1 ML SYRINGE IVP STA (13:16)
--- NOTE | 2020-02-17 13:19 | ED ---
General Adult HPI - General Chief complaint: Abdominal Pain Stated complaint: sent by Enrique for gallbladder removal Time Seen by Provider: 02/17/20 12:48 Source: patient, RN notes reviewed Mode of arrival: ambulatory Limitations: no limitations - History of Present Illness Initial comments: Patient is a pleasant 54-year-old female presenting to the emergency Department with complaints of abdominal discomfort. Onset of symptoms was around 1 week ag o. Symptoms do worsen with food intake. Patient was in the emergency department yesterday and was told she had gallstones. Patient was feeling better however symptoms have returned. Patient did call Dr. Nunez and was recommended to come back to the emergency Department. No nausea vomiting. No fevers. No constipation or diarrhea. Discomfort is currently rated 7/10 and is located right upper abdomen. - Related Data Home Medications Medication Instructions Recorded Confirmed ARIPiprazole [Abilify] 5 mg PO DAILY 12/03/13 02/17/20 Gabapentin [Neurontin] 800 mg PO TID 12/03/13 02/17/20 hydrOXYzine pamoate [Vistaril] 50 mg PO DAILY 12/03/13 02/17/20 Multivitamins, Thera [Multivitamin 1 tab PO DAILY 08/19/18 02/17/20 (formulary)] Cholecalciferol [Vitamin D3 (25 5,000 unit PO DAILY 05/14/19 02/17/20 Mcg = 1000 Iu)] Ezetimibe [Zetia] 10 mg PO DAILY 05/14/19 02/17/20 Fenofibrate Nanocrystallized 48 mg PO DAILY 10/22/19 02/17/20 [Tricor] Venlafaxine HCl [Effexor XR] 150 mg PO DAILY 10/22/19 02/17/20 hydrOXYzine pamoate [Vistaril] 100 mg PO HS 10/22/19 02/17/20 lisinopriL [Zestril] 10 mg PO DAILY 10/22/19 02/17/20 Allergies Allergy/AdvReac Type Severity Reaction Status Date / Time No Known Allergies Allergy Verified 02/17/20 13:56 Review of Systems ROS Statement: Those systems with pertinent positive or pertinent negative responses have been documented in the HPI. ROS Other: All systems not noted in ROS Statement are negative. Constitutional: Denies: fever Eyes: Denies: eye pain ENT: Denies: ear pain Respiratory: Denies: cough, dyspnea Cardiovascular: Denies: chest pain Endocrine: Denies: fatigue Gastrointestinal: Reports: as per HPI, abdominal pain. Denies: vomiting Genitourinary: Denies: urgency Musculoskeletal: Denies: back pain Skin: Denies: rash Neurological: Denies: weakness Past Medical History Past Medical History: Cancer, Hyperlipidemia, Hypertension, Liver Disease, Osteoarthritis (OA) Additional Past Medical History / Comment(s): Hx of Hepatitis B, Non-Alcoholic Cirrhosis of liver, kidney stones, Cervical cancer. History of Any Multi-Drug Resistant Organisms: None Reported Past Surgical History: Orthopedic Surgery, Tubal Ligation Additional Past Surgical History / Comment(s): Left shoulder surgery X4 with pins & screws, coloposcopy -CERVICAL, D&C. Past Anesthesia/Blood Transfusion Reactions: No Reported Reaction Past Psychological History: Anxiety, Bipolar, Depression Smoking Status: Current every day smoker Past Alcohol Use History: Occasional Past Drug Use History: Marijuana - Past Family History Mother Family Medical History: Cancer Additional Family Medical History / Comment(s): Colon, Bone Cancer. Father Family Medical History: Cancer Additional Family Medical History / Comment(s): Lung Cancer. General Exam Limitations: no limitations General appearance: alert, in no apparent distress Head exam: Present: normocephalic Eye exam: Present: normal appearance Neck exam: Present: normal inspection Respiratory exam: Present: normal lung sounds bilaterally Cardiovascular Exam: Present: regular rate, normal rhythm Expanded Peripheral pulses: 2+: Dorsalis Pedis (R), Dorsalis Pedis (L) GI/Abdominal exam: Present: soft, tenderness (Moderate tenderness right upper quadrant), guarding (Right upper quadrant), normal bowel sounds. Absent: distended, rebound, rigid, pulsatile mass Extremities exam: Present: normal inspection Neurological exam: Present: alert Psychiatric exam: Present: normal affect, normal mood Skin exam: Present: normal color Course Vital Signs 02/17/20 02/17/20 02/17/20 11:47 13:48 14:12 Temperature 98.3 F Pulse Rate 76 69 Pulse Rate [ Pulse Oximetery ] Respiratory 20 18 18 Rate Blood Pressure 128/78 119/63 Blood Pressure [Left Arm] O2 Sat by Pulse 99 95 Oximetry 02/17/20 14:14 Temperature 98.2 F Pulse Rate Pulse Rate [ 70 Pulse Oximetery ] Respiratory 14 Rate Blood Pressure Blood Pressure 166/90 [Left Arm] O2 Sat by Pulse 96 Oximetry Medical Decision Making - Medical Decision Making Case was discussed with Dr. Nunez who is aware of this patient and would like her to be admitted. Nothing by mouth. - Lab Data Result diagrams: 02/17/20 13:53 02/17/20 13:52 Disposition Clinical Impression: Cholelithiasis Disposition: ADMITTED IP TO THIS HOSP Is patient prescribed a controlled substance at d/c from ED?: No Decision Time: 13:27
[2020-02-17] MEDS ORDERED: ONDANSETRON 4 MG/2 ML VIAL IVP PRN (13:27)
[2020-02-17] MEDS ORDERED: HYDROmorphone 0.5 MG/0.5 ML SYRINGE IVP PRN (13:27)
[2020-02-17] MEDS ORDERED: NALOXONE 0.4 MG/ML 1 ML VIAL IV PRN (13:27)
[2020-02-17 14:18] LABS: Basophils # (A) 0.1 k/uL (0-0.2); Basophils % (A) 1 %; Eosinophils # (A) 0.6 k/uL (0-0.7); Eosinophils % (A) 7 %; HCT 38.4 % (34.0-46.0); HGB 13.1 gm/dL (11.4-16.0); Lymphocytes # (A) 2.7 k/uL (1.0-4.8); Lymphocytes % (A) 32 %; MCH 30.7 pg (25.0-35.0); MCV 90.1 fL (80.0-100.0); Mean Platelet Volume 6.3; Monocytes # (A) 0.5 k/uL (0-1.0); Monocytes % (A) 6 %; Neutrophils # (A) 4.5 k/uL (1.3-7.7); Neutrophils % (A) 53 %; Platelet Count 385 k/uL (150-450); RBC 4.26 m/uL (3.80-5.40); RDW 13.9 % (11.5-15.5); WBC 8.6 k/uL (3.8-10.6)
[2020-02-17] MEDS: SODIUM CHLORIDE 0.9% 1,000 ML IV SCH ×2 (14:24→20:42)
[2020-02-17 14:28] LABS: Calcium 9.3 mg/dL (8.4-10.2); Potassium 4.8 mmol/L (3.5-5.1); Total Bilirubin 0.4 mg/dL (0.2-1.3)
--- NOTE | 2020-02-17 15:50 | P.GSHP ---
History of Present Illness H&P Date: 02/17/20 CHIEF COMPLAINT: Right upper quadrant abdominal pain HISTORY OF PRESENT ILLNESS: This is a 54-year-old female with a known history of hypertension, hyperlipidemia, hepatitis B, nonalcoholic liver cirrhosis, kidney stones and cervical cancer. Patient presented to the emergency room on 02/16/2020 with right upper quadrant abdominal pain over the last week and a half. She rates her pain 10 out of 10. She denies any nausea or vomiting, fever or chills. She's been having regular bowel movements. She had abdominal ultrasound showing cholelithiasis with findings consistent with acute cholecysti tis or biliary dilation Villatoro sign positive. Computed tomography scan of the abdomen and pelvis shows calcified gallstone that appears new compared to old exam. PAST MEDICAL HISTORY: See list. PAST SURGICAL HISTORY: See list. MEDICATIONS: See list. ALLERGIES: See list. SOCIAL HISTORY: No illicit drug use. REVIEW OF SYSTEMS: CONSTITUTIONAL: Denies fever or chills. HEENT: Denies blurred vision, vision changes, or eye pain. Denies hemoptysis CARDIOVASCULAR: Denies chest pain or pressure. RESPIRATORY: No shortness of breath. GASTROINTESTINAL: See HPI for pertinent findings HEMATOLOGIC: Denies bleeding disorders. GENITOURINARY: Denies any blood in urine or increased urinary frequency. SKIN: Denies pruitis. Denies rash. PHYSICAL EXAM: VITAL SIGNS: Reviewed GENERAL: Well-developed in no acute distress. HEENT: No sclera icterus. Extraocular movements grossly intact. Moist buccal mucosa. Head is atraumatic, normocephalic. No nasal drainage. ABDOMEN: Soft. Nondistended. Tenderness right upper quadrant NEUROLOGIC: Alert and oriented. Cranial nerves II through XII grossly intact. LABORATORY DATA: WBC 8.6 LFTs normal amylase lipase normal creatinine 1.13 Lipase 562 now down 158 IMAGING: abdominal ultrasound showing cholelithiasis with findings consistent with acute cholecystitis or biliary dilation. Villatoro sign positive. Computed tomography scan of the abdomen and pelvis shows calcified gallstone that appears new compared to old exam. ASSESSMENT: 1. Acute gallstone pancreatitis 2. Cough with wheezing 3. Nicotine dependence PLAN: -Keep patient nothing by mouth -Continue IV fluids -Bowel rest for pancreatitis -Check chest x-ray for cough and wheezing -Consult medicine for medical management -Continue pain medication as needed -GI prophylaxis Protonix and DVT prophylaxis subcu heparin Physician [place] Inspector note has been reviewed by physician. Signing provider agrees with the documented findings, assessment, and plan of care. Past Medical History Past Medical History: Cancer, Hyperlipidemia, Hypertension, Liver Disease, Osteoarthritis (OA) Additional Past Medical History / Comment(s): Hx of Hepatitis B, Non-Alcoholic Cirrhosis of liver, kidney stones, Cervical cancer. History of Any Multi-Drug Resistant Organisms: None Reported Past Surgical History: Orthopedic Surgery, Tubal Ligation Additional Past Surgical History / Comment(s): Left shoulder surgery X4 with pins & screws, coloposcopy -CERVICAL, D&C. Past Anesthesia/Blood Transfusion Reactions: No Reported Reaction Past Psychological History: Anxiety, Bipolar, Depression Smoking Status: Current every day smoker Past Alcohol Use History: Occasional Past Drug Use History: Marijuana - Past Family History Mother Family Medical History: Cancer Additional Family Medical History / Comment(s): Colon, Bone Cancer. Father Family Medical History: Cancer Additional Family Medical History / Comment(s): Lung Cancer. Medications and Allergies Home Medications Medication Instructions Recorded Confirmed Type ARIPiprazole [Abilify] 5 mg PO DAILY 12/03/13 02/17/20 History Gabapentin [Neurontin] 800 mg PO TID 12/03/13 02/17/20 History hydrOXYzine pamoate [Vistaril] 50 mg PO DAILY 12/03/13 02/17/20 History Multivitamins, Thera [Multivitamin 1 tab PO DAILY 08/19/18 02/17/20 History (formulary)] Cholecalciferol [Vitamin D3 (25 5,000 unit PO DAILY 05/14/19 02/17/20 History Mcg = 1000 Iu)] Ezetimibe [Zetia] 10 mg PO DAILY 05/14/19 02/17/20 History Fenofibrate Nanocrystallized 48 mg PO DAILY 10/22/19 02/17/20 History [Tricor] Venlafaxine HCl [Effexor XR] 150 mg PO DAILY 10/22/19 02/17/20 History hydrOXYzine pamoate [Vistaril] 100 mg PO HS 10/22/19 02/17/20 History lisinopriL [Zestril] 10 mg PO DAILY 10/22/19 02/17/20 History Allergies Allergy/AdvReac Type Severity Reaction Status Date / Time No Known Allergies Allergy Verified 02/17/20 13:56 Surgical - Exam Vital Signs Temp Pulse Resp BP Pulse Ox 98.3 F 76 20 128/78 99 02/17/20 11:47 02/17/20 11:47 02/17/20 11:47 02/17/20 11:47 02/17/20 11:47 Results - Labs 02/17/20 13:53 02/17/20 13:52 Abnormal Lab Results - Last 24 Hours (Table) 02/17/20 Range/Units 13:52 Chloride 108 H (98-107) mmol/L Creatinine 1.13 H (0.52-1.04) mg/dL Diabetes panel 02/17/20 Range/Units 13:52 Sodium 137 (137-145) mmol/L Potassium 4.8 (3.5-5.1) mmol/L Chloride 108 H (98-107) mmol/L Carbon Dioxide 27 (22-30) mmol/L BUN 14 (7-17) mg/dL Creatinine 1.13 H (0.52-1.04) mg/dL Glucose 89 (74-99) mg/dL Calcium 9.3 (8.4-10.2) mg/dL AST 35 (14-36) U/L ALT 29 (4-34) U/L Alkaline Phosphatase 102 (38-126) U/L Total Protein 7.0 (6.3-8.2) g/dL Albumin 4.0 (3.5-5.0) g/dL Calcium panel 02/17/20 Range/Units 13:52 Calcium 9.3 (8.4-10.2) mg/dL Albumin 4.0 (3.5-5.0) g/dL Pituitary panel 02/17/20 Range/Units 13:52 Sodium 137 (137-145) mmol/L Potassium 4.8 (3.5-5.1) mmol/L Chloride 108 H (98-107) mmol/L Carbon Dioxide 27 (22-30) mmol/L BUN 14 (7-17) mg/dL Creatinine 1.13 H (0.52-1.04) mg/dL Glucose 89 (74-99) mg/dL Calcium 9.3 (8.4-10.2) mg/dL Adrenal panel 02/17/20 Range/Units 13:52 Sodium 137 (137-145) mmol/L Potassium 4.8 (3.5-5.1) mmol/L Chloride 108 H (98-107) mmol/L Carbon Dioxide 27 (22-30) mmol/L BUN 14 (7-17) mg/dL Creatinine 1.13 H (0.52-1.04) mg/dL Glucose 89 (74-99) mg/dL Calcium 9.3 (8.4-10.2) mg/dL Total Bilirubin 0.4 (0.2-1.3) mg/dL AST 35 (14-36) U/L ALT 29 (4-34) U/L Alkaline Phosphatase 102 (38-126) U/L Total Protein 7.0 (6.3-8.2) g/dL Albumin 4.0 (3.5-5.0) g/dL
--- NOTE | 2020-02-17 16:12 | XR ---
EXAMINATION TYPE: XR chest 2V DATE OF EXAM: 02/17/2020 COMPARISON: 11/05/2012 HISTORY: 54-year-old female cough and wheezing TECHNIQUE: PA and lateral views FINDINGS: Heart normal size. Aorta and pulmonary vasculature within normal limits. Mild interstitial and peribr onchial density. No consolidation or pleural effusion. IMPRESSION: Correlate for bronchitis or chronic asthma. No focal infiltrate seen.
[2020-02-17] MEDS: NICOTINE 21MG/24HR PATCH TRANSDERM SCH (17:09)
[2020-02-17] MEDS: hydrOXYzine pamoate 25 MG CAP PO SCH (20:40)
[2020-02-17] MEDS: GABAPENTIN 400 MG CAP PO SCH (20:40)
[2020-02-17] MEDS: HEPARIN SODIUM,PORCINE 5,000 UNIT/ML 1 ML VIAL SQ SCH (20:41)
[2020-02-17] MEDS: HYDROmorphone 1 MG/ML 1 ML SYRINGE IVP PRN (22:10)
--- NOTE | 2020-02-17 22:45 | P.CONS ---
History of Present Illness - Reason for Consult Consult date: 02/17/20 Medical management Requesting physician: Contreras Nunez - Chief Complaint Right upper quadrant pain, acute cholelithiasis and cholecystitis. - History of Present Illness 54-year-old female one of the [facility] patient with past medical history of COPD, cervical cancer, hypertension, chronic liver disease who apparently developed to have an acute episode of right upper quadrant pain and discomfort become very severe on 11 9 patient apparently has been having symptoms for the last 2 weeks on and off but symptoms become unbearable last night ended up coming to the emergency department was seen Dr. Mai ER her testing including CT along with ultrasound showed significant cholelithiasis and cholecystitis subacute with worsening symptom including Villatoro sign with the pressure on the right side extremely painful. Patient ended up being discharged from the [facility] room to return back few hours later with worsening symptom along with pain nausea and not been able to keep any food or fluid down. Patient was evaluated by general surgery will be continue well hydrated and pain management until tomorrow patient will be going for gallbladder surgery. Review of Systems CONSTITUTIONAL: Well-developed no acute respiratory distress. EYES: No icterus sclerae, no conjunctivitis. EARS, NOSE, MOUTH, THROAT, and FACE: No sore throat, lymphadenopathy, carotid bruits or deformity. RESPIRATORY: Mild shortness of breath and wheezes. CARDIOVASCULAR: No CP, Palpitation, PND, Orthopnea, or angina. GASTROINTESTINAL: Positive abdominal pain with nausea vomiting and significant discomfort in the right upper quadrant area along with severe gastritis GENITOURINARY: Negative for Hematuria or UTI, no kidney stones. INTEGUMENT/BREAST: Negative for any muscular injury with mild osteoarthritis.. HEMATOLOGIC/LYMPHATIC: Negative for bleed or purpura. MUSCULOSKELTAL: Negative for Myalgia or arthralgia. NEURLOGICAL: No LOC, Sz or syncope, blurred vision dizziness or abnormality.. BEHAVIORAL/PSYCH: Negative. ENDOCRINE: Negative. Past Medical History Past Medical History: Cancer, Hyperlipidemia, Hypertension, Liver Disease, Osteoarthritis (OA) Additional Past Medical History / Comment(s): Hx of Hepatitis B, Non-Alcoholic Cirrhosis of liver, kidney stones, Cervical cancer. History of Any Multi-Drug Resistant Organisms: None Reported Past Surgical History: Orthopedic Surgery, Tubal Ligation Additional Past Surgical History / Comment(s): Left shoulder surgery X4 with pins & screws, coloposcopy -CERVICAL, D&C. Past Anesthesia/Blood Transfusion Reactions: No Reported Reaction Past Psychological History: Anxiety, Bipolar, Depression Smoking Status: Current every day smoker Past Alcohol Use History: Occasional Past Drug Use History: Marijuana - Past Family History Mother Family Medical History: Cancer Additional Family Medical History / Comment(s): Colon, Bone Cancer. Father Family Medical History: Cancer Additional Family Medical History / Comment(s): Lung Cancer. Medications and Allergies Home Medications Medication Instructions Recorded Confirmed Type ARIPiprazole [Abilify] 5 mg PO DAILY 12/03/13 02/17/20 History Gabapentin [Neurontin] 800 mg PO TID 12/03/13 02/17/20 History hydrOXYzine pamoate [Vistaril] 50 mg PO DAILY 12/03/13 02/17/20 History Multivitamins, Thera [Multivitamin 1 tab PO DAILY 08/19/18 02/17/20 History (formulary)] Cholecalciferol [Vitamin D3 (25 5,000 unit PO DAILY 05/14/19 02/17/20 History Mcg = 1000 Iu)] Ezetimibe [Zetia] 10 mg PO DAILY 05/14/19 02/17/20 History Fenofibrate Nanocrystallized 48 mg PO DAILY 10/22/19 02/17/20 History [Tricor] Venlafaxine HCl [Effexor XR] 150 mg PO DAILY 10/22/19 02/17/20 History hydrOXYzine pamoate [Vistaril] 100 mg PO HS 10/22/19 02/17/20 History lisinopriL [Zestril] 10 mg PO DAILY 10/22/19 02/17/20 History Allergies Allergy/AdvReac Type Severity Reaction Status Date / Time No Known Allergies Allergy Verified 02/17/20 13:56 Physical Exam Vitals: Vital Signs Temp Pulse Pulse Resp BP BP Pulse Ox 02/17/20 14:53 98.2 F 70 16 166/90 96 02/17/20 14:14 98.2 F 70 14 166/90 96 02/17/20 14:12 69 18 119/63 95 02/17/20 13:48 18 02/17/20 11:47 98.3 F 76 20 128/78 99 Intake and Output 02/17/20 02/17/20 02/17/20 06:59 14:59 22:59 Other: Voiding Method Toilet # Voids 1 Weight 77.111 kg General Appearance: Alert, cooperative, no distress, appears stated age. Neck HEENT: Supple, no lymphadenopathy, no thyroid enlargement, no carotid bruits. Lungs: Decreased breath some bilaterally with fine rhonchi positive mild expressive 2 wheezes. Chest Wall: Decrease expansion with deep inspiration no tenderness and no deformity was found on exam, no costochondral pain or discomfort. Heart: Regular rate and rhythm, S1, S2 normal, no murmur, rub or gallop. Back: Symmetric, no curvature, ROM normal, no CVA tenderness. Abdomen: Soft positive bowel sounds significant discomfort and tenderness in the right upper quadrant midepigastric area no rebound or rigidity minimum ascites Extremities: Extremities normal, atraumatic, no cyanosis or edema. Pulses: 2+ and symmetric. Skin: Skin color, texture, tugor normal, no rashes or lesions. Neurologic: Alert oriented x3 cranial nerves II through XII intact, no motor deficit, no abnormal balance or gait. Results CBC & Chem 7: 02/17/20 13:53 02/17/20 13:52 Labs: Abnormal Lab Results - Last 24 Hours (Table) 02/17/20 Range/Units 13:52 Chloride 108 H (98-107) mmol/L Creatinine 1.13 H (0.52-1.04) mg/dL Assessment and Plan Assessment: 1 severe abdominal pain: Combination of subacute pancreatitis along with common duct cholelithiasis and acute cholecystitis, continue pain management continue hydration patient seen general surgeon for possible surgery tomorrow. 2 severe acute with subacute cholelithiasis and cholecystitis: Patient be going for surgery tomorrow. 3 hypertension: Patient is remain on lisinopril 10 mg a day continue medication. 4 hyperlipidemia: Remain on fenofibrate and Zetia. 5 chronic neuropathy: Has been on gabapentin. 6 chronic depression: Has been on been the laxative 15 along with Abilify. 7 GI prophylaxis: Patient be on pantoprazole IV. 8 DVT prophylaxis: Continue patient on heparin subcutaneous along with knee-high KRISHNA hose. CODE STATUS: Full code. Dr. Nunez thank you very much for the consult if I can be any further help to please let me know.
[2020-02-18] MEDS: SODIUM CHLORIDE 0.9% 1,000 ML IV SCH ×3 (04:34→19:43)
[2020-02-18] MEDS: HYDROmorphone 1 MG/ML 1 ML SYRINGE IVP PRN ×3 (05:17→11:15)
[2020-02-18] MEDS: lisinopriL 10 MG TAB PO SCH (07:39)
[2020-02-18] MEDS: FENOFIBRATE 54 MG TAB PO SCH (07:41)
[2020-02-18] MEDS: GABAPENTIN 400 MG CAP PO SCH ×3 (07:41→19:43)
[2020-02-18] MEDS: HEPARIN SODIUM,PORCINE 5,000 UNIT/ML 1 ML VIAL SQ SCH ×2 (07:41→19:43)
[2020-02-18] MEDS: CHOLECALCIFEROL 1,000 UNIT TAB PO SCH (07:41)
[2020-02-18] MEDS: hydrOXYzine pamoate 25 MG CAP PO SCH ×3 (07:41→19:45)
[2020-02-18] MEDS: EZETIMIBE 10 MG TAB PO SCH (07:41)
[2020-02-18] MEDS: ARIPiprazole 5 MG TAB PO SCH (07:41)
[2020-02-18] MEDS: MULTIVITAMINS, THERA 1 EACH TAB PO SCH (07:42)
[2020-02-18] MEDS: NICOTINE 21MG/24HR PATCH TRANSDERM SCH (07:42)
[2020-02-18] MEDS: VENLAFAXINE HCL ER 150 MG CAP PO SCH (07:42)
[2020-02-18] MEDS: PANTOPRAZOLE 40 MG/10 ML VIAL IV SCH (08:21)
[2020-02-18 08:42] LABS: Basophils % (A) 0 %; Eosinophils # (A) 0.5 k/uL (0-0.7); Eosinophils % (A) 7 %; HCT 37.1 % (34.0-46.0); Lymphocytes # (A) 2.5 k/uL (1.0-4.8); Lymphocytes % (A) 34 %; MCH 29.4 pg (25.0-35.0); MCHC 32.4 g/dL (31.0-37.0); MCV 90.8 fL (80.0-100.0); Mean Platelet Volume 6.6; Monocytes # (A) 0.4 k/uL (0-1.0); Monocytes % (A) 5 %; Neutrophils # (A) 3.8 k/uL (1.3-7.7); Neutrophils % (A) 52 %; Platelet Count 386 k/uL (150-450); RBC 4.08 m/uL (3.80-5.40); RDW 14.4 % (11.5-15.5); WBC 7.3 k/uL (3.8-10.6)
[2020-02-18 08:53] LABS: Potassium 4.6 mmol/L (3.5-5.1)
[2020-02-18 08:54] LABS: Albumin 3.7 g/dL (3.5-5.0); Calcium 8.8 mg/dL (8.4-10.2); Total Bilirubin 0.4 mg/dL (0.2-1.3); Total Protein 6.4 g/dL (6.3-8.2)
--- NOTE | 2020-02-18 11:35 | P.PN ---
Subjective Progress Note Date: 02/18/20 HISTORY OF PRESENT ILLNESS 54-year-old female one of the [facility] clinic patient with past medical history of COPD, cervical cancer, hypertension, chronic liver disease who apparently developed to have an acute episode of right upper quadrant pain and discomfort become very severe on 9 patient apparently has been having symptoms for the last 2 weeks on and off but symptoms become unbearable last night ended up coming to the emergency department was seen Dr. Mai ER her testing including CT along with ultrasound showed significant cholelithiasis and cholecystitis subacute with worsening symptom including Villatoro sign with the pressure on the right side extremely painful. Patient ended up being discharged from the emergency room to return back few hours later with worsening symptom along with pain nausea and not been able to keep any food or fluid down. Patient was evaluated by general surgery will be continue well hydrated and pain management until tomorrow patient will be going for gallbladder surgery. 02/17: Patient continues to have abdominal pain to the RUQ and lateral area. Pain is improved with medications. No fever or chills. She has been afebrile, HR 67, BP 121/76, PO 97% on RA. Repeat CBC is normal. CMP unremarkable. REVIEW OF SYSTEMS CONSTITUTIONAL: Well-developed no acute respiratory distress. Denies fever. EYES: No icterus sclerae, no conjunctivitis. EARS, NOSE, MOUTH, THROAT, and FACE: No sore throat, lymphadenopathy, carotid bruits or deformity. RESPIRATORY: Mild shortness of breath and wheezes. CARDIOVASCULAR: No CP, Palpitation, PND, Orthopnea, or angina. GASTROINTESTINAL: Positive abdominal pain, no nausea no vomiting GENITOURINARY: Negative for Hematuria or UTI, no kidney stones. INTEGUMENT/BREAST: Negative for any muscular injury with mild osteoarthritis.. HEMATOLOGIC/LYMPHATIC: Negative for bleed or purpura. MUSCULOSKELTAL: Negative for Myalgia or arthralgia. NEURLOGICAL: No LOC, Sz or syncope, blurred vision dizziness or abnormality. BEHAVIORAL/PSYCH: Negative. ENDOCRINE: Negative. PHYSICAL EXAMINATION General Appearance: Alert, cooperative, no distress, appears stated age. Neck HEENT: Supple, no lymphadenopathy, no thyroid enlargement, no carotid bruits. Lungs: Decreased breath some bilaterally with fine rhonchi positive mild expressive 2 wheezes. Chest Wall: Decrease expansion with deep inspiration no tenderness and no deformity was found on exam, no costochondral pain or discomfort. Heart: Regular rate and rhythm, S1, S2 normal, no murmur, rub or gallop. Back: Symmetric, no curvature, ROM normal, no CVA tenderness. Abdomen: Soft positive bowel sounds, mild discomfort and tenderness in the right upper quadrant midepigastric area no rebound or rigidity minimum ascites Extremities: Extremities normal, atraumatic, no cyanosis or edema. Pulses: 2+ and symmetric. Skin: Skin color, texture, tugor normal, no rashes or lesions. Neurologic: Alert oriented x3 cranial nerves II through XII intact, no motor deficit, no abnormal balance or gait. ASSESSMENT AND PLAN 1 severe abdominal pain: Combination of subacute pancreatitis along with common duct cholelithiasis and acute cholecystitis, continue pain management continue hydration patient seen general surgeon. Scheduled for lap bo today. 2 severe acute with subacute cholelithiasis and cholecystitis: Patient be going for surgery tomorrow. 3 hypertension: Patient is remain on lisinopril 10 mg a day continue medication. 4 hyperlipidemia: Remain on fenofibrate and Zetia. 5 chronic neuropathy: Has been on gabapentin. 6 chronic depression: Has been on effexor along with Abilify. 7 GI prophylaxis: Patient be on pantoprazole IV. 8 DVT prophylaxis: Continue patient on heparin subcutaneous along with knee-high KRISHNA hose. CODE STATUS: Full code. DISCHARGE PLAN Home, possibly later today following surgery. Impression and plan of care have been directed as dictated by the signing physician. Marisol Varela nurse practitioner acting as scribe for signing physician. Objective - Vital Signs Vital signs: Vital Signs Temp 97.7 F 02/18/20 07:30 Pulse 67 02/18/20 07:30 Resp 16 02/18/20 07:30 BP 121/76 02/18/20 07:30 Pulse Ox 97 02/18/20 07:30 Intake & Output 02/17/20 02/18/20 02/18/20 18:59 06:59 18:59 Intake Total 2079 Balance 2079 Weight 77.111 kg Intake: Intake, IV Titration 2079 Amount Sodium Chloride 0.9% 2079 000 ml @ 130 mls/hr IV . [id number] YOSI Rx#:[id number] Other: Voiding Method Toilet Toilet # Voids 1 2 - Labs CBC & Chem 7: 02/18/20 08:04 02/18/20 08:04 Labs: Abnormal Lab Results - Last 24 Hours (Table) 02/17/20 02/18/20 Range/Units 13:52 08:04 Chloride 108 H 111 H (98-107) mmol/L Creatinine 1.13 H (0.52-1.04) mg/dL
[2020-02-18] MEDS ORDERED: IV FLUID CONTINUATION 1,000 ML IV ONE (14:11)
[2020-02-18] MEDS ORDERED: MIDAZOLAM 2 MG/2 ML VIAL ONE (14:30)
[2020-02-18] MEDS ORDERED: PROPOFOL 10 MG/ML 20 ML VIAL IV ONE (14:30)
[2020-02-18] MEDS ORDERED: GLYCOPYRROLATE 0.2 MG/ML 2 ML VIAL ONE (14:30)
[2020-02-18] MEDS ORDERED: fentaNYL (PF) 50 MCG/ML 2 ML AMP ONE (14:30)
[2020-02-18] MEDS ORDERED: LIDOCAINE 1% INJ 10MG/ML (20 ML MDV) ONE (14:30)
[2020-02-18] MEDS ORDERED: SUCCINYLCHOLINE CHLORIDE 100 MG/5 ML SYR IV ONE (14:30)
[2020-02-18] MEDS ORDERED: NEOSTIGMINE 1 MG/ML 10 ML VIAL ONE (14:30)
[2020-02-18] MEDS ORDERED: ROCURONIUM 10 MG/ML (10 ML VIAL) IV ONE (14:30)
[2020-02-18] MEDS ORDERED: ONDANSETRON 4 MG/2 ML VIAL IVP ONE (14:31)
[2020-02-18] MEDS ORDERED: HEPARIN SODIUM,PORCINE 5,000 UNIT/ML 1 ML VIAL SQ ONE (14:31)
[2020-02-18] MEDS ORDERED: DEXAMETHASONE SOD PHOSPHATE 4 MG/ML 1 ML VIAL IVP ONE (14:33)
[2020-02-18] MEDS ORDERED: BUPIVACAINE (PF) 0.25% 30 ML VIAL SQ ONE (14:57)
[2020-02-18] MEDS ORDERED: LACTATED RINGERS 1,000 ML IV ONE (15:14)
--- NOTE | 2020-02-18 15:31 | P.OP ---
Date of Procedure: 02/18/20 Preoperative Diagnosis: Cholecystitis Postoperative Diagnosis: Cholecystitis Procedure(s) Performed: Laparoscopic cholecystectomy Anesthesia: DIOGO Surgeon: Contreras Nunez Estimated Blood Loss (ml): 10 Pathology: other (Gallbladder) Condition: stable Disposition: PACU Description of Procedure: The patient was placed on the operating table. The patient received a general endotracheal tube anesthesia. The patients abdomen was prepped and draped in the usual sterile fashion. Through an infraumbilical stab incision, the fascia of the anterior abdominal wall was grasped with a pair of Kochers and then the Veress needle was placed in the peritoneal cavity. Position of the Veress needle was confirmed with positive drop test. The abdomen was then insufflated. After adequate insufflation, the 10 mm trocar was placed in the peritoneal cavity. Following this the laparoscope was placed in the peritoneal cavity. The patient was placed in the head-up, right side up position and then a 5 mm trocar was placed in the right lateral and right subcostal position under direct visualization. A 8 mm trocar was placed in the epigastric position. The gallbladder was grasped in the fundus and infundibulum. Traction on the gallbladder was placed in the lateral and the cephalad positions. The triangle of Calot was visualized.. The cystic duct was bluntly dissected until the union of the cystic duct and common bile duct was seen. A critical view of safety was achieved. The cystic duct was then divided and sealed with the Harmonic scissors. A PDS Endoloop was then placed throughout the cystic duct stump. The cystic artery divided and sealed with the Harmonic scissors. The gallbladder was then removed from the liver bed using Harmonic scissors. The gallbladder was then extracted through the epigastric port site. Operative field was checked for any bleeding spots and Harmonic scissors was used to coagulate the liver bed. The abdomen was irrigated. The trocars were removed. The skin was closed using interrupted 3-0 Vicryl suture. Dermabond dressing were applied. The patient tolerated the procedure well.
[2020-02-18] MEDS: HYDROmorphone 1 MG/ML 1 ML SYRINGE IVP ONE ×3 (15:36→16:16)
[2020-02-19] MEDS: SODIUM CHLORIDE 0.9% 1,000 ML IV SCH (05:07)
[2020-02-19] MEDS: HYDROmorphone 1 MG/ML 1 ML SYRINGE IVP PRN (07:29)
[2020-02-19] MEDS: hydrOXYzine pamoate 25 MG CAP PO SCH (08:14)
[2020-02-19] MEDS: GABAPENTIN 400 MG CAP PO SCH (08:14)
[2020-02-19] MEDS: MULTIVITAMINS, THERA 1 EACH TAB PO SCH (08:15)
[2020-02-19] MEDS: ARIPiprazole 5 MG TAB PO SCH (08:15)
[2020-02-19] MEDS: FENOFIBRATE 54 MG TAB PO SCH (08:15)
[2020-02-19] MEDS: VENLAFAXINE HCL ER 150 MG CAP PO SCH (08:16)
[2020-02-19] MEDS: EZETIMIBE 10 MG TAB PO SCH (08:16)
[2020-02-19] MEDS: PANTOPRAZOLE 40 MG/10 ML VIAL IV SCH (08:16)
[2020-02-19] MEDS: CHOLECALCIFEROL 1,000 UNIT TAB PO SCH (08:16)
[2020-02-19] MEDS: lisinopriL 10 MG TAB PO SCH (08:16)
[2020-02-19] MEDS: HEPARIN SODIUM,PORCINE 5,000 UNIT/ML 1 ML VIAL SQ SCH (08:17)
[2020-02-19] MEDS: NICOTINE 21MG/24HR PATCH TRANSDERM SCH (08:17)
[2020-02-19 09:31] VITALS: BP 172/69; PULSE 77; RESP 20; TEMP 98.5
[2020-02-19] MEDS ORDERED: HYDROcodone/APAP 5-325MG 1 EACH TAB PO PRN (09:49)
--- NOTE | 2020-02-19 12:33 | P.PN ---
Subjective Progress Note Date: 02/19/20 HISTORY OF PRESENT ILLNESS 54-year-old female [facility] with past medical history of COPD, cervical cancer, hypertension, chronic liver disease who apparently developed to have an acute episode of right upper quadrant pain and discomfort become very severe on 11 9 patient apparently has been having symptoms for the last 2 weeks on and off but symptoms become unbearable last night ended up coming to the emergency department was seen Dr. Mai ER her testing including CT along with ultrasound showed significant cholelithiasis and cholecystitis subacute with worsening symptom including Villatoro sign with the pressure on the right side extremely painful. Patient ended up being discharged from the emergency room to return back few hours later with worsening symptom along with pain nausea and not been able to keep any food or fluid down. Patient was evaluated by general surgery will be continue well hydrated and pain management until tomorrow patient will be going for gallbladder surgery. 02/17: Patient continues to have abdominal pain to the RUQ and lateral area. Pain is improved with medications. No fever or chills. She has been afebrile, HR 67, BP 121/76, PO 97% on RA. Repeat CBC is normal. CMP unremarkable. 02/18: Patient underwent laparoscopic cholecystectomy yesterday. She did not have any complications overnight. She states she is feeling well today and feeling much better. She has had a bowel movement. She is eating a regular diet and tolerating with no nausea or vomiting. Her pain has resolved. She's been afebrile, heart rate 74, blood pressure 110/69, pulse ox 85% on room air. Patient is scheduled for discharge home today. Patient will have follow-up with the [facility] [place] [facility]. REVIEW OF SYSTEMS CONSTITUTIONAL: Well-developed no acute respiratory distress. Denies fever. EYES: No icterus sclerae, no conjunctivitis. EARS, NOSE, MOUTH, THROAT, and FACE: No sore throat, lymphadenopathy, carotid bruits or deformity. RESPIRATORY: Mild shortness of breath and wheezes. CARDIOVASCULAR: No CP, Palpitation, PND, Orthopnea, or angina. GASTROINTESTINAL: Denies abdominal pain, no nausea no vomiting GENITOURINARY: Negative for Hematuria or UTI, no kidney stones. INTEGUMENT/BREAST: Negative for any muscular injury with mild osteoarthritis.. HEMATOLOGIC/LYMPHATIC: Negative for bleed or purpura. MUSCULOSKELTAL: Negative for Myalgia or arthralgia. NEURLOGICAL: No LOC, Sz or syncope, blurred vision dizziness or abnormality. BEHAVIORAL/PSYCH: Negative. ENDOCRINE: Negative. PHYSICAL EXAMINATION General Appearance: Alert, cooperative, no distress, appears stated age. Neck HEENT: Supple, no lymphadenopathy, no thyroid enlargement, no carotid bruits. Lungs: Decreased breath some bilaterally with fine rhonchi positive mild expressive 2 wheezes. Chest Wall: Decrease expansion with deep inspiration no tenderness and no deformity was found on exam, no costochondral pain or discomfort. Heart: Regular rate and rhythm, S1, S2 normal, no murmur, rub or gallop. Back: Symmetric, no curvature, ROM normal, no CVA tenderness. Abdomen: Soft positive bowel sounds, no Ezequiel tenderness. Puncture sites show no signs of infection. Extremities: Extremities normal, atraumatic, no cyanosis or edema. Pulses: 2+ and symmetric. Skin: Skin color, texture, tugor normal, no rashes or lesions. Neurologic: Alert oriented x3 cranial nerves II through XII intact, no motor def icit, no abnormal balance or gait. ASSESSMENT AND PLAN 1 severe abdominal pain: Combination of subacute pancreatitis along with common duct cholelithiasis and acute cholecystitis status post laparoscopic cholecystectomy. 2 severe acute with subacute cholelithiasis and cholecystitis status post laparoscopic cholecystectomy. 3 hypertension: Patient is remain on lisinopril 10 mg a day continue medication. 4 hyperlipidemia: Remain on fenofibrate and Zetia. 5 chronic neuropathy: Has been on gabapentin. 6 chronic depression: Has been on effexor along with Abilify. 7 GI prophylaxis: Patient be on pantoprazole IV. 8 DVT prophylaxis: Continue patient on heparin subcutaneous along with knee-high KRISHNA hose. CODE STATUS: Full code. DISCHARGE PLAN Home Impression and plan of care have been directed as dictated by the signing physician. Marisol Varela nurse practitioner acting as scribe for signing physician. Objective - Vital Signs Vital signs: Vital Signs Temp 97.8 F 02/19/20 03:00 Pulse 74 02/19/20 03:00 Resp 17 02/19/20 03:00 BP 110/69 02/19/20 03:00 Pulse Ox 95 02/19/20 03:00 Intake & Output 02/18/20 02/19/20 02/19/20 18:59 06:59 18:59 Intake Total 750 2080 Output Total 10 Balance 740 2079 Weight 77.111 kg Intake: IV 750 Intake, IV Titration 2079 Amount Sodium Chloride 0.9% 2079 000 ml @ 130 mls/hr IV . Q7H42M [facility] Rx#:[id number] Output: Estimated Blood Loss 10 Other: Voiding Method Toilet # Voids 1 2 # Bowel Movements 1 - Labs CBC & Chem 7: 02/18/20 08:04 02/18/20 08:04 Labs: Abnormal Lab Results - Last 24 Hours (Table) 02/18/20 Range/Units 08:04 Chloride 111 H (98-107) mmol/L
--- NOTE | 2020-02-19 13:01 | P.DS ---
Providers Date of admission: 02/17/20 13:33 Expected date of discharge: 02/19/20 Attending physician: Contreras Nunez Consults: 02/17/20 15:47 Consult Physician Routine Consulting Provider: Gustavo Reyes Reason/Comments: medical management Do you want consulting provider notified?: Yes Primary care physician: [facility] Course: Discharge diagnosis 1. Acute cholecystitis status post laparoscopic cholecystectomy 2. Acute gallstone pancreatitis Hospital course his is a 54-year-old female with a known history of hypertension, hyperlipide yoan, hepatitis B, nonalcoholic liver cirrhosis, kidney stones and cervical cancer. Patient presented to the emergency room on 02/16/2020 with right upper quadrant abdominal pain over the last week and a half. She rates her pain 10 out of 10. She denies any nausea or vomiting, fever or chills. She's been having regular bowel movements. She had abdominal ultrasound showing cholelithiasis with findings consistent with acute cholecystitis or biliary dilation Villatoro sign positive. Computed tomography scan of the abdomen and pelvis shows calcified gallstone that appears new compared to old exam. Patient's lipase was elevated and has normalized. She underwent laparoscopic cholecystectomy. She tolerated surgery well. She is tolerating diet. Denies any nausea vomiting. Pain is controlled. She's afebrile. She is stable for discharge. Physician Clinical Trials Data Coordinator note has been reviewed by physician. Signing provider agrees with the documented findings, assessment, and plan of care. Patient Condition at Discharge: Stable Plan - Discharge Summary New Discharge Prescriptions: New Docusate [Colace] 100 mg PO BID #30 capsule Hydrocodone/Acetaminophen [[place] 5-325] 1 tab PO Q6HR PRN 3 Days #12 tab PRN Reason: Pain Continue hydrOXYzine pamoate [Vistaril] 50 mg PO DAILY Gabapentin [Neurontin] 800 mg PO TID ARIPiprazole [Abilify] 5 mg PO DAILY Multivitamins, Thera [Multivitamin (formulary)] 1 tab PO DAILY Cholecalciferol [Vitamin D3 (25 Mcg = 1000 Iu)] 5,000 unit PO DAILY Ezetimibe [Zetia] 10 mg PO DAILY hydrOXYzine pamoate [Vistaril] 100 mg PO HS lisinopriL [Zestril] 10 mg PO DAILY Venlafaxine HCl [Effexor XR] 150 mg PO DAILY Fenofibrate Nanocrystallized [Tricor] 48 mg PO DAILY Discharge Medication List ARIPiprazole [Abilify] 5 mg PO DAILY 12/03/13 [History] Gabapentin [Neurontin] 800 mg PO TID 12/03/13 [History] hydrOXYzine pamoate [Vistaril] 50 mg PO DAILY 12/03/13 [History] Multivitamins, Thera [Multivitamin (formulary)] 1 tab PO DAILY 08/19/18 [History] Cholecalciferol [Vitamin D3 (25 Mcg = 1000 Iu)] 5,000 unit PO DAILY 05/14/19 [History] Ezetimibe [Zetia] 10 mg PO DAILY 05/14/19 [History] Fenofibrate Nanocrystallized [Tricor] 48 mg PO DAILY 10/22/19 [History] Venlafaxine HCl [Effexor XR] 150 mg PO DAILY 10/22/19 [History] hydrOXYzine pamoate [Vistaril] 100 mg PO HS 10/22/19 [History] lisinopriL [Zestril] 10 mg PO DAILY 10/22/19 [History] Docusate [Colace] 100 mg PO BID #30 capsule 02/19/20 [Rx] Hydrocodone/Acetaminophen [[place] 5-325] 1 tab PO Q6HR PRN 3 Days #12 tab 02/19/20 [Rx] Follow up Appointment(s)/Referral(s): [facility] [Primary Care Provider] - 1 Week Contreras Nunez MD [STAFF PHYSICIAN] - 1 Week Activity/Diet/Wound Care/Special Instructions: No driving while taking [place] No lifting over 10 pounds You may shower. No soaking or tub baths or 2 weeks Very light activity until you are reevaluated at your follow up appointment with your surgeon Low-fat diet
== END 2020-02-19 14:03 | disposition home or self-care (01) ==
LOC: EC 11:31 → 1SOBS 13:33
PROVIDERS: ADMIT Surgery; ATTEND Surgery
DX: K80.66 Calculus of gallbladder and bile duct with acute and chronic cholecystitis without obstruction (principal); K85.10 Biliary acute pancreatitis without necrosis or infection; E78.5 Hyperlipidemia, unspecified; I10 Essential (primary) hypertension; M19.90 Unspecified osteoarthritis, unspecified site; K74.69 Other cirrhosis of liver; F31.9 Bipolar disorder, unspecified; F41.9 Anxiety disorder, unspecified; F17.200 Nicotine dependence, unspecified, uncomplicated; B19.10 Unspecified viral hepatitis B without hepatic coma; J44.9 Chronic obstructive pulmonary disease, unspecified; G62.9 Polyneuropathy, unspecified; Z79.899 Other long term (current) drug therapy; Z87.442 Personal history of urinary calculi; Z85.41 Personal history of malignant neoplasm of cervix uteri; Z98.51 Tubal ligation status; Z80.1 Family history of malignant neoplasm of trachea, bronchus and lung; Z80.0 Family history of malignant neoplasm of digestive organs; Z80.8 Family history of malignant neoplasm of other organs or systems
CPT/HCPCS: 96372; 96376 ×2; 96374; 96375; 99285; 88304; 80053 ×2; 82150 ×2; 83690 ×2; 85025 ×2; 71046; 76705; 47562; G0378 ×3; S4990; J2250; J1644 ×3; J1100; J2710; J0690; J2405 ×2; J2001; J3010; J1170 ×4; J0330; J2704; C9113 ×3

== ENCOUNTER 2020-02-25 15:29 | Emergency (ER) | payer OTHER ==
[2020-02-25 15:38] VITALS: TEMP 98
[2020-02-25] MEDS ORDERED: SODIUM CHLORIDE 0.9% 1,000 ML IV STA (16:05)
[2020-02-25] MEDS ORDERED: HYDROmorphone 0.5 MG/0.5 ML SYRINGE IVP STA (16:05)
[2020-02-25] MEDS ORDERED: ONDANSETRON 4 MG/2 ML VIAL IVP STA (16:05)
--- NOTE | 2020-02-25 16:10 | ED ---
General Adult HPI - General Chief complaint: Abdominal Pain Stated complaint: Post opt issues Time Seen by Provider: 02/25/20 15:46 Source: patient, RN notes reviewed Mode of arrival: wheelchair Limitations: no limitations - History of Present Illness Initial comments: 54-year-old female presents to the emergency room for a chief complaint of abdominal pain. Patient is postop day 7 from a laparoscopic cholecystectomy with Dr. Nunez. Patient reports that she has had pain and bloating in her abdomen since the surgery worsening in the past 2 days. Patient states she has had some nausea and has had a decreased appetite but is able to tolerate oral intake. She has not been vomiting. Patient states she had a small bowel movement this morning. Patient reports her abdomen is distended. She has not had any fevers. She had an x-ray performed and was told to come to the emergency room. It appears that x-ray was ordered by an EMPLOYEE'S REPRESENTATIVE at [facility]. It showed air-fluid levels present however no evidence for pneumoperitoneum, or obstruction, correlate for possible enteritis ileus. Patient has no other complaints at this time including shortness of breath, chest pain, vomiting, headache, or visual changes. - Related Data Home Medications Medication Instructions Recorded Confirmed ARIPiprazole [Abilify] 5 mg PO HS 12/03/13 02/25/20 Gabapentin [Neurontin] 800 mg PO TID 12/03/13 02/25/20 hydrOXYzine pamoate [Vistaril] 50 mg PO DAILY 12/03/13 02/25/20 Multivitamins, Thera [Multivitamin 1 tab PO DAILY 08/19/18 02/25/20 (formulary)] Cholecalciferol [Vitamin D3 (25 5,000 unit PO DAILY 05/14/19 02/25/20 Mcg = 1000 Iu)] Ezetimibe [Zetia] 10 mg PO DAILY 05/14/19 02/25/20 Fenofibrate Nanocrystallized 48 mg PO DAILY 10/22/19 02/25/20 [Tricor] Venlafaxine HCl [Effexor XR] 150 mg PO DAILY 10/22/19 02/25/20 hydrOXYzine pamoate [Vistaril] 100 mg PO HS 10/22/19 02/25/20 lisinopriL [Zestril] 10 mg PO DAILY 10/22/19 02/25/20 Allergies Allergy/AdvReac Type Severity Reaction Status Date / Time No Known Allergies Allergy Verified 02/25/20 18:01 Review of Systems ROS Statement: Those systems with pertinent positive or pertinent negative responses have been documented in the HPI. ROS Other: All systems not noted in ROS Statement are negative. Past Medical History Past Medical History: Cancer, Hyperlipidemia, Hypertension, Liver Disease, Osteoarthritis (OA) Additional Past Medical History / Comment(s): Hx of Hepatitis B, Non-Alcoholic Cirrhosis of liver, kidney stones, Cervical cancer. History of Any Multi-Drug Resistant Organisms: None Reported Past Surgical History: Cholecystectomy, Orthopedic Surgery, Tubal Ligation Additional Past Surgical History / Comment(s): Left shoulder surgery X4 with pins & screws, coloposcopy -CERVICAL, D&C. Past Anesthesia/Blood Transfusion Reactions: No Reported Reaction Past Psychological History: Anxiety, Bipolar, Depression Smoking Status: Current every day smoker Past Alcohol Use History: Occasional Past Drug Use History: Marijuana - Past Family History Mother Family Medical History: Cancer Additional Family Medical History / Comment(s): Colon, Bone Cancer. Father Family Medical History: Cancer Additional Family Medical History / Comment(s): Lung Cancer. General Exam Limitations: no limitations General appearance: alert, in no apparent distress Head exam: Present: atraumatic, normocephalic, normal inspection Eye exam: Present: normal appearance, PERRL, EOMI. Absent: scleral icterus, conjunctival injection, periorbital swelling ENT exam: Present: normal exam, mucous membranes moist Neck exam: Present: normal inspection, full ROM. Absent: tenderness, meningismus, lymphadenopathy Respiratory exam: Present: normal lung sounds bilaterally. Absent: respiratory distress, wheezes, rales, rhonchi, stridor Cardiovascular Exam: Present: regular rate, normal rhythm, normal heart sounds. Absent: systolic murmur, diastolic murmur, rubs, gallop, clicks GI/Abdominal exam: Present: soft, distended, tenderness (Generalized abdominal tenderness.), normal bowel sounds, other (Well appearing surgical incisions noted in laparoscopic fashion.). Absent: guarding, rebound, rigid Course Vital Signs 02/25/20 02/25/20 15:35 17:57 Temperature 98 F Pulse Rate 75 69 Respiratory 16 18 Rate Blood Pressure 151/88 115/63 O2 Sat by Pulse 100 97 Oximetry Medical Decision Making - Medical Decision Making Vitals are stable. CBC CMP unremarkable. Urinalysis is negative. CT abdomen and pelvis shows status post cholecystectomy with trace fluid in the surgical bed that may represent resolving post cervical changes. Otherwise no acute abnormality. Patient was given pain medications and is feeling better. She is tolerating oral intake. She is passing gas. She has an appointment with Dr. Nunez tomorrow. I discussed this case with Dr. Almaraz, he recommends discharging patient home to follow up outpatient. She will return here for any worsening symptoms. - Lab Data Result diagrams: 02/25/20 16:33 02/25/20 16:33 Lab Results 02/25/20 02/25/20 02/25/20 Range/Units 16:33 16:33 16:33 WBC 10.4 (3.8-10.6) k/uL RBC 4.24 (3.80-5.40) m/uL Hgb 12.9 (11.4-16.0) gm/dL Hct 38.6 (34.0-46.0) % MCV 90.9 (80.0-100.0) fL MCH 30.3 (25.0-35.0) pg MCHC 33.4 (31.0-37.0) g/dL RDW 13.8 (11.5-15.5) % Plt Count 540 H (150-450) k/uL MPV 6.3 Neutrophils % 48 % Lymphocytes % 33 % Monocytes % 6 % Eosinophils % 8 % Basophils % 2 % Neutrophils # 4.9 (1.3-7.7) k/uL Lymphocytes # 3.4 (1.0-4.8) k/uL Monocytes # 0.7 (0-1.0) k/uL Eosinophils # 0.9 H (0-0.7) k/uL Basophils # 0.2 (0-0.2) k/uL Sodium 138 (137-145) mmol/L Potassium 4.8 (3.5-5.1) mmol/L Chloride 103 (98-107) mmol/L Carbon Dioxide 28 (22-30) mmol/L Anion Gap 7 mmol/L BUN 18 H (7-17) mg/dL Creatinine 0.97 (0.52-1.04) mg/dL Est GFR (CKD-EPI)AfAm 76 (>60 ml/min/1.73 sqM) Est GFR (CKD-EPI)NonAf 66 (>60 ml/min/1.73 sqM) Glucose 95 (74-99) mg/dL Plasma Lactic Acid Wayne (0.7-2.0) mmol/L Calcium 10.0 (8.4-10.2) mg/dL Total Bilirubin 0.2 (0.2-1.3) mg/dL AST 27 (14-36) U/L ALT 31 (4-34) U/L Alkaline Phosphatase 100 (38-126) U/L Total Protein 7.7 (6.3-8.2) g/dL Albumin 4.3 (3.5-5.0) g/dL Amylase 59 (30-110) U/L Lipase 233 (23-300) U/L Urine Color Light Yellow Urine Appearance Clear (Clear) Urine pH 6.0 (5.0-8.0) Ur Specific Patterson 1.007 (1.001-1.035) Urine Protein Negative (Negative) Urine Glucose (UA) Negative (Negative) Urine Ketones Negative (Negative) Urine Blood Negative (Negative) Urine Nitrite Negative (Negative) Urine Bilirubin Negative (Negative) Urine Urobilinogen <2.0 (<2.0) mg/dL Ur Leukocyte Esterase Negative (Negative) 02/25/20 Range/Units 16:33 WBC (3.8-10.6) k/uL RBC (3.80-5.40) m/uL Hgb (11.4-16.0) gm/dL Hct (34.0-46.0) % MCV (80.0-100.0) fL MCH (25.0-35.0) pg MCHC (31.0-37.0) g/dL RDW (11.5-15.5) % Plt Count (150-450) k/uL MPV Neutrophils % % Lymphocytes % % Monocytes % % Eosinophils % % Basophils % % Neutrophils # (1.3-7.7) k/uL Lymphocytes # (1.0-4.8) k/uL Monocytes # (0-1.0) k/uL Eosinophils # (0-0.7) k/uL Basophils # (0-0.2) k/uL Sodium (137-145) mmol/L Potassium (3.5-5.1) mmol/L Chloride (98-107) mmol/L Carbon Dioxide (22-30) mmol/L Anion Gap mmol/L BUN (7-17) mg/dL Creatinine (0.52-1.04) mg/dL Est GFR (CKD-EPI)AfAm (>60 ml/min/1.73 sqM) Est GFR (CKD-EPI)NonAf (>60 ml/min/1.73 sqM) Glucose (74-99) mg/dL Plasma Lactic Acid Wayne 1.1 (0.7-2.0) mmol/L Calcium (8.4-10.2) mg/dL Total Bilirubin (0.2-1.3) mg/dL AST (14-36) U/L ALT (4-34) U/L Alkaline Phosphatase (38-126) U/L Total Protein (6.3-8.2) g/dL Albumin (3.5-5.0) g/dL Amylase (30-110) U/L Lipase (23-300) U/L Urine Color Urine Appearance (Clear) Urine pH (5.0-8.0) Ur Specific Patterson (1.001-1.035) Urine Protein (Negative) Urine Glucose (UA) (Negative) Urine Ketones (Negative) Urine Blood (Negative) Urine Nitrite (Negative) Urine Bilirubin (Negative) Urine Urobilinogen (<2.0) mg/dL Ur Leukocyte Esterase (Negative) Disposition Clinical Impression: Abdominal pain Disposition: HOME SELF-CARE Condition: Good Instructions (If sedation given, give patient instructions): Abdominal Pain (ED) Additional Instructions: Please follow-up your appointment tomorrow with Dr. Nunez. If symptoms worsen or you develop fevers before that time return to the emergency room. Is patient prescribed a controlled substance at d/c from ED?: No Referrals: [facility] [Primary Care Provider] - 1-2 days Contreras Nunez MD [STAFF PHYSICIAN] - 1-2 days Time of Disposition: 18:20
[2020-02-25 16:52] LABS: Basophils # (A) 0.2 k/uL (0-0.2); Basophils % (A) 2 %; Eosinophils # (A) 0.9 k/uL (0-0.7); Eosinophils % (A) 8 %; HCT 38.6 % (34.0-46.0); HGB 12.9 gm/dL (11.4-16.0); Lymphocytes # (A) 3.4 k/uL (1.0-4.8); Lymphocytes % (A) 33 %; MCH 30.3 pg (25.0-35.0); MCHC 33.4 g/dL (31.0-37.0); MCV 90.9 fL (80.0-100.0); Mean Platelet Volume 6.3; Monocytes # (A) 0.7 k/uL (0-1.0); Monocytes % (A) 6 %; Neutrophils # (A) 4.9 k/uL (1.3-7.7); Neutrophils % (A) 48 %; Platelet Count 540 k/uL (150-450); RBC 4.24 m/uL (3.80-5.40); RDW 13.8 % (11.5-15.5); WBC 10.4 k/uL (3.8-10.6)
[2020-02-25 16:53] LABS: Appearance,Urine Clear (Clear); Bilirubin,Urine Negative (Negative); Blood,Urine Negative (Negative); Color,Urine Light Yellow; Glucose,Urine (UA) Negative (Negative); Ketones,Urine Negative (Negative); Leukocyte Esterase,Urine Negative (Negative); Nitrite,Urine Negative (Negative); Protein,Urine Negative (Negative); Specific Gravity,Urine 1.007 (1.001-1.035); Urobilinogen,Urine <2.0 mg/dL (<2.0)
[2020-02-25 17:01] LABS: Albumin 4.3 g/dL (3.5-5.0); Potassium 4.8 mmol/L (3.5-5.1); Total Bilirubin 0.2 mg/dL (0.2-1.3); Total Protein 7.7 g/dL (6.3-8.2)
--- NOTE | 2020-02-25 17:50 | CT ---
EXAMINATION TYPE: CT abdomen pelvis w con DATE OF EXAM: 02/25/2020 COMPARISON: 02/16/2020. HISTORY: RUQ pain post op CT DLP: 900.6 mGycm Automated exposure control for dose reduction was used. TECHNIQUE: Helical acquisition of images was performed from the lung bases through the pelvis. CONTRAST: Performed without Oral Contrast and with IV Contrast, patient injected with 100 mL of Isovue 300. FINDINGS: LUNG BASES: No significant abnormality is appreciated. LIVER/GB: Interval cholecystectomy with trace fluid in the surgical bed. No significant biliary ducta l dilatation. Hepatic steatosis noted. PANCREAS: No significant abnormality is seen. SPLEEN: No significant abnormality is seen. ADRENALS: No significant abnormality is seen. KIDNEYS: No significant abnormality is seen. Stable few benign-appearing right renal cyst, measuring up to 5 mm. FREE AIR: No free air is visualized. RETROPERITONEAL ADENOPATHY: None visualized REPRODUCTIVE ORGANS: No significant abnormality is seen URINARY BLADDER: No significant abnormality is seen. PELVIC ADENOPATHY: None visualized. OSSEOUS STRUCTURES: No significant abnormality is seen. BOWEL: No significant abnormality is seen. OTHER: None. IMPRESSION: Status post cholecystectomy with trace fluid in the surgical bed, may represent resolving postsurgica l changes. Otherwise no acute abnormality.
[2020-02-25 17:58] VITALS: BP 115/63; PULSE 69; RESP 18
== END 2020-02-25 18:40 | disposition home or self-care (01) ==
LOC: EC 15:29
DX: R10.817 Generalized abdominal tenderness (principal); F41.9 Anxiety disorder, unspecified; F31.9 Bipolar disorder, unspecified; F17.200 Nicotine dependence, unspecified, uncomplicated; E78.5 Hyperlipidemia, unspecified; I10 Essential (primary) hypertension; Z79.899 Other long term (current) drug therapy; Z90.49 Acquired absence of other specified parts of digestive tract; Z98.51 Tubal ligation status; Z80.1 Family history of malignant neoplasm of trachea, bronchus and lung; Z80.8 Family history of malignant neoplasm of other organs or systems; Z85.41 Personal history of malignant neoplasm of cervix uteri
CPT/HCPCS: 36415; 80053; 82150; 83605; 83690; 85025; 81003; 74177; 99284; 96374; 96375; 96361 ×2; J2405; J1170; Q9967

== ENCOUNTER → 2020-02-25 | Outpatient (CLI) | payer OTHER ==
--- NOTE | 2020-02-25 15:09 | XR ---
2 view abdomen HISTORY: Abdomen pain 2 views the abdomen Surgical clips are present right upper quadrant. There are air-fluid levels present. No evident bowel distention. No pneumoperitoneum. Multiple calcifications present within the pelvis likely represent phleboliths or vascular calcifications. IMPRESSION: Correlate for possible enteritis, ileus, follow-up as indicated.
== END | disposition home or self-care (01) ==
LOC: RADXRMAIN 14:22
PROVIDERS: ATTEND Nurse Practitioner Family
DX: R10.9 Unspecified abdominal pain (principal)
CPT/HCPCS: 74019

== ENCOUNTER 2021-03-10 10:09 | Inpatient (IN) | payer OTHER ==
[2021-03-10] MEDS ORDERED: SODIUM CHLORIDE 0.9% 1,000 ML IV ONE (10:54)
[2021-03-10] MEDS ORDERED: DEXAMETHASONE SOD PHOSPHATE 10 MG/ML 1 ML VIAL IV STA (10:54)
--- NOTE | 2021-03-10 10:57 | XR ---
EXAMINATION TYPE: XR chest 1V portable DATE OF EXAM: 03/10/2021 COMPARISON: Chest x-ray February 17, 2020 HISTORY: Shortness of breath and fever. TECHNIQUE: Single AP portable frontal upright view of the chest is obtained. FINDINGS: There are increasing reticular opacities bilaterally. The cardiac silhouette size is stab le and within normal limits. Metallic anchor left humeral head redemonstrated. IMPRESSION: Worsening bilateral reticular opacities suggesting worsening infiltrates and/or edema. C orrelate for atypical infection.
[2021-03-10 11:05] LABS: Basophils % (A) 0 %; Eosinophils # (A) 0.2 k/uL (0-0.7); Eosinophils % (A) 1 %; HCT 37.8 % (34.0-46.0); Lymphocytes # (A) 1.2 k/uL (1.0-4.8); Lymphocytes % (A) 7 %; MCH 30.4 pg (25.0-35.0); MCHC 34.4 g/dL (31.0-37.0); MCV 88.4 fL (80.0-100.0); Mean Platelet Volume 7.2; Monocytes # (A) 0.4 k/uL (0-1.0); Monocytes % (A) 2 %; Neutrophils # (A) 15.4 k/uL (1.3-7.7); Neutrophils % (A) 89 %; Platelet Count 419 k/uL (150-450); RBC 4.27 m/uL (3.80-5.40); RDW 13.8 % (11.5-15.5); WBC 17.3 k/uL (3.8-10.6)
--- NOTE | 2021-03-10 11:23 | ED ---
General Adult HPI - General Chief complaint: Shortness of Breath Stated complaint: ELSA Time Seen by Provider: 03/10/21 10:14 Source: patient, EMS, RN notes reviewed, old records reviewed Mode of arrival: EMS Limitations: physical limitation - History of Present Illness Initial comments: 55-year-old female who presents with dyspnea, subjective fever and chills. Patient has had myalgias and headache over the past 2 days. She has previously been vaccinated against coronavirus in the spring of this year. She reports a generalized headache. Dry cough and congestion. No central chest pain. No abdominal pain. She's had a very poor appetite. - Related Data Home Medications Medication Instructions Recorded Confirmed ARIPiprazole [Abilify] 5 mg PO HS 12/03/13 02/25/20 Gabapentin [Neurontin] 800 mg PO TID 12/03/13 02/25/20 hydrOXYzine pamoate [Vistaril] 50 mg PO DAILY 12/03/13 02/25/20 Multivitamins, Thera [Multivitamin 1 tab PO DAILY 08/19/18 02/25/20 (formulary)] Cholecalciferol [Vitamin D3 (25 5,000 unit PO DAILY 05/14/19 02/25/20 Mcg = 1000 Iu)] Ezetimibe [Zetia] 10 mg PO DAILY 05/14/19 02/25/20 Fenofibrate Nanocrystallized 48 mg PO DAILY 10/22/19 02/25/20 [Tricor] Venlafaxine HCl [Effexor XR] 150 mg PO DAILY 10/22/19 02/25/20 hydrOXYzine pamoate [Vistaril] 100 mg PO HS 10/22/19 02/25/20 lisinopriL [Zestril] 10 mg PO DAILY 10/22/19 02/25/20 Allergies Allergy/AdvReac Type Severity Reaction Status Date / Time No Known Allergies Allergy Verified 03/10/21 10:12 Review of Systems ROS Statement: Those systems with pertinent positive or pertinent negative responses have been documented in the HPI. ROS Other: All systems not noted in ROS Statement are negative. Past Medical History Past Medical History: Cancer, Hyperlipidemia, Hypertension, Liver Disease, Osteoarthritis (OA) Additional Past Medical History / Comment(s): Hx of Hepatitis B, Non-Alcoholic Cirrhosis of liver, kidney stones, Cervical cancer. History of Any Multi-Drug Resistant Organisms: None Reported Past Surgical History: Cholecystectomy, Orthopedic Surgery, Tubal Ligation Additional Past Surgical History / Comment(s): Left shoulder surgery X4 with p ins & screws, coloposcopy -CERVICAL, D&C. Past Anesthesia/Blood Transfusion Reactions: No Reported Reaction Past Psychological History: Anxiety, Bipolar, Depression Smoking Status: Current every day smoker Past Alcohol Use History: None Reported Past Drug Use History: Marijuana - Past Family History Mother Family Medical History: Cancer Additional Family Medical History / Comment(s): Colon, Bone Cancer. Father Family Medical History: Cancer Additional Family Medical History / Comment(s): Lung Cancer. General Exam Limitations: physical limitation General appearance: alert, in distress Head exam: Present: atraumatic, normocephalic Eye exam: Present: normal appearance, PERRL ENT exam: Present: mucous membranes dry Neck exam: Present: normal inspection. Absent: tenderness, meningismus Respiratory exam: Present: wheezes, rhonchi, decreased breath sounds Cardiovascular Exam: Present: regular rate, normal rhythm GI/Abdominal exam: Present: soft. Absent: distended, tenderness, guarding Extremities exam: Present: normal inspection, normal capillary refill. Absent: pedal edema Neurological exam: Present: alert, oriented X3, CN II-XII intact. Absent: motor sensory deficit Psychiatric exam: Present: normal affect, normal mood Skin exam: Present: warm, dry, intact. Absent: cyanosis, diaphoretic Course Vital Signs 03/10/21 03/10/21 03/10/21 10:12 10:19 10:33 Temperature 100.1 F H Pulse Rate 83 82 Respiratory 18 18 Rate Blood Pressure 146/80 139/84 O2 Sat by Pulse 84 L 93 L 97 Oximetry 03/10/21 13:00 Temperature Pulse Rate 72 Respiratory Rate Blood Pressure 136/38 O2 Sat by Pulse 96 Oximetry EKG Findings - EKG Comments: EKG Findings:: EKG: Normal sinus rhythm, T-wave inversion inferiorly, rate of 80, OR interval 124, QRS duration 84, QTC [address] segment elevation. Medical Decision Making - Medical Decision Making 55-year-old female presenting with fever, cough, myalgia and hypoxia. Patient systems are concerning for coronavirus. X-ray showing bilateral infiltrate. She does have a leukocytosis of 17.3. Normal lactic, normal electrolytes. Her coronavirus testing is negative however nursing staff state states that the patient was difficult to did not tolerate the nasal swab well. PCR testing will be ordered. She'll be started on antibiotics to cover community acquired pneumonia awaiting these results. Additionally she is given steroids and IV fluids in the emergency department. She'll be admitted to [facility]. - Lab Data Result diagrams: 03/10/21 10:32 03/10/21 11:44 Lab Results 03/10/21 03/10/21 03/10/21 Range/Units 10:32 10:32 10:32 WBC 17.3 H (3.8-10.6) k/uL RBC 4.27 (3.80-5.40) m/uL Hgb 13.0 (11.4-16.0) gm/dL Hct 37.8 (34.0-46.0) % MCV 88.4 (80.0-100.0) fL MCH 30.4 (25.0-35.0) pg MCHC 34.4 (31.0-37.0) g/dL RDW 13.8 (11.5-15.5) % Plt Count 419 (150-450) k/uL MPV 7.2 Neutrophils % 89 % Lymphocytes % 7 % Monocytes % 2 % Eosinophils % 1 % Basophils % 0 % Neutrophils # 15.4 H (1.3-7.7) k/uL Lymphocytes # 1.2 (1.0-4.8) k/uL Monocytes # 0.4 (0-1.0) k/uL Eosinophils # 0.2 (0-0.7) k/uL Basophils # 0.0 (0-0.2) k/uL PT 9.9 (9.0-12.0) sec INR 0.9 (<1.2) APTT 25.9 (22.0-30.0) sec Sodium (137-145) mmol/L Potassium (3.5-5.1) mmol/L Chloride (98-107) mmol/L Carbon Dioxide (22-30) mmol/L Anion Gap mmol/L BUN (7-17) mg/dL Creatinine (0.52-1.04) mg/dL Est GFR (CKD-EPI)AfAm (>60 ml/min/1.73 sqM) Est GFR (CKD-EPI)NonAf (>60 ml/min/1.73 sqM) Glucose (74-99) mg/dL Plasma Lactic Acid Wayne 1.9 (0.7-2.0) mmol/L Calcium (8.4-10.2) mg/dL Magnesium (1.6-2.3) mg/dL Total Bilirubin (0.2-1.3) mg/dL AST (14-36) U/L ALT (4-34) U/L Alkaline Phosphatase (38-126) U/L NT-Pro-B Natriuret Pep pg/mL Total Protein (6.3-8.2) g/dL Albumin (3.5-5.0) g/dL Coronavirus (PCR) (Not Detectd) 03/10/21 03/10/21 03/10/21 Range/Units 10:32 10:32 11:09 WBC (3.8-10.6) k/uL RBC (3.80-5.40) m/uL Hgb (11.4-16.0) gm/dL Hct (34.0-46.0) % MCV (80.0-100.0) fL MCH (25.0-35.0) pg MCHC (31.0-37.0) g/dL RDW (11.5-15.5) % Plt Count (150-450) k/uL MPV Neutrophils % % Lymphocytes % % Monocytes % % Eosinophils % % Basophils % % Neutrophils # (1.3-7.7) k/uL Lymphocytes # (1.0-4.8) k/uL Monocytes # (0-1.0) k/uL Eosinophils # (0-0.7) k/uL Basophils # (0-0.2) k/uL PT (9.0-12.0) sec INR (<1.2) APTT (22.0-30.0) sec Sodium 142 (137-145) mmol/L Potassium 2.2 L* (3.5-5.1) mmol/L Chloride 130 H (98-107) mmol/L Carbon Dioxide 9 L* (22-30) mmol/L Anion Gap 3 mmol/L BUN 4 L (7-17) mg/dL Creatinine 0.35 L (0.52-1.04) mg/dL Est GFR (CKD-EPI)AfAm >90 (>60 ml/min/1.73 sqM) Est GFR (CKD-EPI)NonAf >90 (>60 ml/min/1.73 sqM) Glucose 67 L (74-99) mg/dL Plasma Lactic Acid Wayne (0.7-2.0) mmol/L Calcium 4.4 L* (8.4-10.2) mg/dL Magnesium 1.1 L (1.6-2.3) mg/dL Total Bilirubin 0.4 (0.2-1.3) mg/dL AST 32 (14-36) U/L ALT 13 (4-34) U/L Alkaline Phosphatase 28 L (38-126) U/L NT-Pro-B Natriuret Pep 860 pg/mL Total Protein 3.6 L (6.3-8.2) g/dL Albumin 1.6 L (3.5-5.0) g/dL Coronavirus (PCR) Not Detected (Not Detectd) 03/10/21 Range/Units 11:44 WBC (3.8-10.6) k/uL RBC (3.80-5.40) m/uL Hgb (11.4-16.0) gm/dL Hct (34.0-46.0) % MCV (80.0-100.0) fL MCH (25.0-35.0) pg MCHC (31.0-37.0) g/dL RDW (11.5-15.5) % Plt Count (150-450) k/uL MPV Neutrophils % % Lymphocytes % % Monocytes % % Eosinophils % % Basophils % % Neutrophils # (1.3-7.7) k/uL Lymphocytes # (1.0-4.8) k/uL Monocytes # (0-1.0) k/uL Eosinophils # (0-0.7) k/uL Basophils # (0-0.2) k/uL PT (9.0-12.0) sec INR (<1.2) APTT (22.0-30.0) sec Sodium 138 (137-145) mmol/L Potassium 3.8 (3.5-5.1) mmol/L Chloride 113 H (98-107) mmol/L Carbon Dioxide 17 L (22-30) mmol/L Anion Gap 8 mmol/L BUN 9 (7-17) mg/dL Creatinine 0.79 (0.52-1.04) mg/dL Est GFR (CKD-EPI)AfAm >90 (>60 ml/min/1.73 sqM) Est GFR (CKD-EPI)NonAf 85 (>60 ml/min/1.73 sqM) Glucose 123 H (74-99) mg/dL Plasma Lactic Acid Wayne (0.7-2.0) mmol/L Calcium 9.0 (8.4-10.2) mg/dL Magnesium (1.6-2.3) mg/dL Total Bilirubin 0.7 (0.2-1.3) mg/dL AST 47 H (14-36) U/L ALT 23 (4-34) U/L Alkaline Phosphatase 94 (38-126) U/L NT-Pro-B Natriuret Pep pg/mL Total Protein 6.2 L (6.3-8.2) g/dL Albumin 3.4 L (3.5-5.0) g/dL Coronavirus (PCR) (Not Detectd) Disposition Clinical Impression: Community acquired pneumonia Disposition: ADMITTED IP TO THIS HOSP Condition: Stable Is patient prescribed a controlled substance at d/c from ED?: No Referrals: Nasim Lloyd MD [Primary Care Provider] - 1-2 days Decision to Admit Reason: Admit from EC Decision Date: 03/10/21 Decision Time: 13:21
[2021-03-10 11:24] LABS: INR 0.9 (<1.2); Partial Thromboplastin Time 25.9 sec (22.0-30.0); Prothrombin Time 9.9 sec (9.0-12.0)
[2021-03-10 11:28] LABS: ALT 13 U/L (4-34); African American GFR (CKD) >90 (>60 ml/min/1.73 sqM); Albumin 1.6 g/dL (3.5-5.0); Anion Gap 3 mmol/L; Blood Urea Nitrogen 4 mg/dL (7-17); Chloride 130 mmol/L (98-107); Glucose 67 mg/dL (74-99); Non-African American GFR(CKD) >90 (>60 ml/min/1.73 sqM); Sodium 142 mmol/L (137-145); Total Bilirubin 0.4 mg/dL (0.2-1.3); Total Protein 3.6 g/dL (6.3-8.2)
[2021-03-10 11:35] LABS: Carbon Dioxide 9 mmol/L (22-30)
[2021-03-10 11:36] LABS: Calcium 4.4 mg/dL (8.4-10.2); Potassium 2.2 mmol/L (3.5-5.1)
[2021-03-10 11:37] LABS: AST 32 U/L (14-36); Alkaline Phosphatase 28 U/L (38-126); Magnesium 1.1 mg/dL (1.6-2.3)
[2021-03-10 12:14] LABS: ALT 23 U/L (4-34); AST 47 U/L (14-36); African American GFR (CKD) >90 (>60 ml/min/1.73 sqM); Albumin 3.4 g/dL (3.5-5.0); Alkaline Phosphatase 94 U/L (38-126); Anion Gap 8 mmol/L; Blood Urea Nitrogen 9 mg/dL (7-17); Carbon Dioxide 17 mmol/L (22-30); Chloride 113 mmol/L (98-107); Glucose 123 mg/dL (74-99); Non-African American GFR(CKD) 85 (>60 ml/min/1.73 sqM); Potassium 3.8 mmol/L (3.5-5.1); Sodium 138 mmol/L (137-145); Total Bilirubin 0.7 mg/dL (0.2-1.3); Total Protein 6.2 g/dL (6.3-8.2)
[2021-03-10] MEDS ORDERED: AZITHROMYCIN 500 MG in SODIUM CHLORIDE 0.9% 250 ML IVPB STA (12:35)
[2021-03-10] MEDS ORDERED: cefTRIAXone IN SWFI 1,000 MG/10 ML SYRINGE IVP STA (12:35)
[2021-03-10] MEDS ORDERED: NALOXONE 0.4 MG/ML 1 ML VIAL IV PRN ×2 (13:18→14:57)
[2021-03-10] MEDS ORDERED: ACETAMINOPHEN TAB 325 MG TAB PO PRN ×2 (13:18→14:57)
[2021-03-10] MEDS ORDERED: MAGNESIUM SULFATE-D5W PMX 1 GM in DEXTROSE/WATER 1 100ML.BAG IVPB ONE (13:26)
[2021-03-10] MEDS ORDERED: HYDROcodone/APAP 10-325MG 1 EACH TAB PO PRN (14:53)
[2021-03-10] MEDS ORDERED: LOPERAMIDE 2 MG CAP PO PRN (14:57)
[2021-03-10] MEDS ORDERED: MAG HYDROX/AL HYDROX/SIMETH 30 ML CUP PO PRN (14:57)
[2021-03-10] MEDS ORDERED: MAGNESIUM HYDROXIDE 2,400 MG/10 ML CUP PO PRN (14:57)
[2021-03-10] MEDS: SODIUM CHLORIDE 0.9% 1,000 ML IV SCH (15:02)
[2021-03-10] MEDS ORDERED: IPRATROPIUM-ALBUTEROL 3 ML NEB INHALATION PRN (15:02)
--- NOTE | 2021-03-10 15:08 | P.HPIM ---
History of Present Illness H&P Date: 03/10/21 55-year-old female admitted to the hospital for shortness of breath that has been gone for the last few days the patient has not been feeling well has not been eating well and was found to be hypoxic is not complaining of chest pain at this time Review of systems and systems has been reviewed all negative and positive findings as per history of present illness Constitutional: No acute distress, conversant, pleasant Eyes: Anicteric sclerae, moist conjunctiva, no lid-lag PERRLA ENMT: NC/AT Oropharynx clear, no erythema, exudates Neck: Supple, FROM, no masses, or JVD No carotid bruits No thyromegaly Lungs: C Normal respiratory effort, no accessory muscle use Cardiovascular: Heart regular in rate and rhythm, No murmurs, gallops, or rubs No peripheral edema Abdominal: Soft Nontender, no guarding, rebound or rigidity Abdomen moving with respiration Normoactive bowel sounds No hepatomegaly, No splenomegaly No palpable mass No abdominal wall hernia noted Skin: Normal temperature, tone, texture, turgor No induration No subcutaneous nodules No rash, lesions No ulcers Extremities: Psychiatric:Alert and oriented to person, place and time Appropriate affect Intact judgement Neuro: Moves all extremities Assessment and plan Acute hypoxia due to pneumoniae exact etiology not clear we'll start the patient on IV antibiotics IV steroids and consult pulmonology We will check computed tomography scan of the lungs to rule out PE COVID-19 test has been negative repeatedly test has been ordered Anxiety Chronic pain We will avoid multiple sedations Past Medical History Past Medical History: Cancer, Hyperlipidemia, Hypertension, Liver Disease, Osteoarthritis (OA) Additional Past Medical History / Comment(s): Hx of Hepatitis B, Non-Alcoholic Cirrhosis of liver, kidney stones, Cervical cancer. History of Any Multi-Drug Resistant Organisms: None Reported Past Surgical History: Cholecystectomy, Orthopedic Surgery, Tubal Ligation Additional Past Surgical History / Comment(s): Left shoulder surgery X4 with pins & screws, coloposcopy -CERVICAL, D&C. Past Anesthesia/Blood Transfusion Reactions: No Reported Reaction Past Psychological History: Anxiety, Bipolar, Depression Smoking Status: Current every day smoker Past Alcohol Use History: None Reported Past Drug Use History: Marijuana - Past Family History Mother Family Medical History: Cancer Additional Family Medical History / Comment(s): Colon, Bone Cancer. Father Family Medical History: Cancer Additional Family Medical History / Comment(s): Lung Cancer. Medications and Allergies Home Medications Medication Instructions Recorded Confirmed Type ARIPiprazole [Abilify] 5 mg PO HS 12/03/13 03/10/21 History Gabapentin [Neurontin] 800 mg PO QID 12/03/13 03/10/21 History hydrOXYzine pamoate [Vistaril] 50 mg PO DAILY 12/03/13 03/10/21 History Ezetimibe [Zetia] 10 mg PO DAILY 05/14/19 03/10/21 History Venlafaxine HCl [Effexor XR] 150 mg PO DAILY 10/22/19 03/10/21 History hydrOXYzine pamoate [Vistaril] 100 mg PO HS 10/22/19 03/10/21 History lisinopriL [Zestril] 10 mg PO DAILY 10/22/19 03/10/21 History Acetaminophen/Diphenhydramine 1 - 2 tab PO HS PRN 03/10/21 03/10/21 History [Tylenol PM 500-25mg] Antioxidant 1 tab PO DAILY 03/10/21 03/10/21 History Cholecalciferol (Vitamin D3) 125 mcg PO DAILY 03/10/21 03/10/21 History [Vitamin D3 (125 MCG = 5,000 IU)] Cyanocobalamin (Vitamin B-12) 1,000 mcg PO DAILY 03/10/21 03/10/21 History [Vitamin B-12] Fenofibrate Nanocrystallized 145 mg PO DAILY 03/10/21 03/10/21 History [Fenofibrate] HYDROcodone/APAP 10-325MG [[place] 1 tab PO TID PRN 03/10/21 03/10/21 History 10-325] Multivit with Calcium,Iron,Min 1 tab PO DAILY 03/10/21 03/10/21 History [Women's Multivitamin] hydroCHLOROthiazide [Hydrodiuril] 25 mg PO DAILY 03/10/21 03/10/21 History Allergies Allergy/AdvReac Type Severity Reaction Status Date / Time No Known Allergies Allergy Verified 03/10/21 13:48 Physical Exam Vitals: Vital Signs Temp Pulse Resp BP Pulse Ox 03/10/21 13:00 72 136/38 96 03/10/21 10:33 82 139/84 97 03/10/21 10:19 18 93 L 03/10/21 10:12 100.1 F H 83 18 146/80 84 L Intake and Output 03/10/21 03/10/21 03/10/21 06:59 14:59 22:59 Other: Weight 72.575 kg Results CBC & Chem 7: 03/10/21 10:32 03/10/21 11:44 Labs: Abnormal Lab Results - Last 24 Hours (Table) 03/10/21 03/10/21 03/10/21 Range/Units 10:32 11:09 11:44 WBC 17.3 H (3.8-10.6) k/uL Neutrophils # 15.4 H (1.3-7.7) k/uL Potassium 2.2 L* (3.5-5.1) mmol/L Chloride 130 H 113 H (98-107) mmol/L Carbon Dioxide 9 L* 17 L (22-30) mmol/L BUN 4 L (7-17) mg/dL Creatinine 0.35 L (0.52-1.04) mg/dL Glucose 67 L 123 H (74-99) mg/dL Calcium 4.4 L* (8.4-10.2) mg/dL Magnesium 1.1 L (1.6-2.3) mg/dL AST 47 H (14-36) U/L Alkaline Phosphatase 28 L (38-126) U/L Total Protein 3.6 L 6.2 L (6.3-8.2) g/dL Albumin 1.6 L 3.4 L (3.5-5.0) g/dL
--- NOTE | 2021-03-10 16:46 | CT ---
EXAMINATION TYPE: CT angio chest DATE OF EXAM: 03/10/2021 COMPARISON: CT November 03, 2012 HISTORY: Hypoxia. CT DLP: 325 mGycm. Automated Exposure Control for Dose Reduction was Utilized. CONTRAST: CTA scan of the thorax is performed with IV Contrast, patient injected with 100 mL of Isovue 370, pul monary embolism protocol. MIP Images are created on CT scanner and reviewed. FINDINGS: LUNGS: Mild underlying emphysematous change redemonstrated. Bilateral multifocal areas of groundglass opacities. No pleural effusion or pneumothorax seen. Exam is suboptimal as patient unable to hold br eath. MEDIASTINUM: There is satisfactory enhancement of the pulmonary artery and its branches, there is no CT evidence for pulmonary embolism. Satisfactory enhancement of the aorta without aneurysm or dissec tion. There are prominent and slightly enlarged bilateral hilar lymph nodes. There are prominent prev ascular and borderline enlarged right peritracheal lymph node axial image 45. No cardiomegaly or pe ricardial effusion is seen. OTHER: No additional significant abnormality is seen. IMPRESSION: No CT evidence for acute pulmonary embolism. Mild underlying emphysematous change with bi lateral multifocal areas of groundglass opacity consistent with covid-19 infection.
--- NOTE | 2021-03-10 16:52 | P.CNPUL ---
History of Present Illness Consult date: 03/10/21 Reason for consult: dyspnea, pneumonia History of present illness: 54-year-old female patient came into the hospital because of worsening shortness of breath of few days' duration. Apparently she has been also having a poor appetite and she has been eating well and she was found to be quite short of breath and hypoxic encephalopathy admission. She is a chronic smoker. She also has history of hypertension and hyperlipidemia and chronic nonalcoholic liver disease. She has also previous history of cervical cancer. Note that the chest x-ray showed diffuse bilateral groundglass infiltrates. The patient was suspected to have COVID 19 infection and the COVID 19 testing by PCR came back negative. CT angiogram was done and showed diffuse groundglass bilateral pulmonary infiltrates. No evidence of any pulmonary embolism. There is some background COPD and addition. Patient is currently on oxygen and she is on 6 L about 2 by nasal cannula. She is febrile with a T-max of 100.1. The rest of the blood work shows a white cell count of 17.3 with hemoglobin of 13, platelet counts is 419, normal coagulation profile, sodium is at 142, serum bicarb came back at 17 without any anion gap. Potassium 3.8. Normal renal function with a creatinine of 0.7. Normal LFTs. The patient has been vaccinated for COVID 19. The patient has no exposure to COVID 19. No 70 connected tissue diseases. No other complaints otherwise for now. She is a chronic smoker smokes one pack of cigarette a day. No inhalation injury. Review of Systems Constitutional: Reports fatigue, Reports fever (400), Reports weakness Eyes: denies as per HPI, denies blurred vision, denies bulging eye, denies decreased vision, denies diplopia, denies discharge, denies dry eye, denies irritation, denies itching, denies pain, denies photophobia, denies loss of peripheral vision, denies loss of vision, denies tunnel vision/blind spots Ears: deny: decreased hearing, ear discharge, earache, tinnitus Ears, nose, mouth and throat: Reports as per HPI Breasts: absent: as per HPI, change in shape, gynecomastia, masses, nipple di scharge, pain, skin changes, swelling Cardiovascular: Reports decreased exercise tolerance, Reports dyspnea on exertion, Reports shortness of breath Respiratory: Reports cough, Reports dyspnea Gastrointestinal: Reports as per HPI Genitourinary: Reports as per HPI Menstruation: Reports as per HPI Musculoskeletal: Reports as per HPI Musculoskeletal: absent: ankle pain, ankle stiffness, ankle swelling, as per HPI, elbow pain, elbow stiffness, elbow swelling, foot pain, foot stiffness, foot swelling, hand pain, hand stiffness, hand swelling, hip pain, hip stiffness, hip swelling, knee pain, knee stiffness, knee swelling, shoulder pain, shoulder stiffness, shoulder swelling, wrist pain, wrist stiffness, wrist swelling Integumentary: Reports as per HPI Neurological: Reports as per HPI Psychiatric: Reports as per HPI Endocrine: Reports as per HPI Hematologic/Lymphatic: Reports as per HPI Allergic/Immunologic: Reports as per HPI Past Medical History Past Medical History: Cancer, Hyperlipidemia, Hypertension, Liver Disease, Oste oarthritis (OA) Additional Past Medical History / Comment(s): Hx of Hepatitis B, Non-Alcoholic Cirrhosis of liver, kidney stones, Cervical cancer. History of Any Multi-Drug Resistant Organisms: None Reported Past Surgical History: Cholecystectomy, Orthopedic Surgery, Tubal Ligation Additional Past Surgical History / Comment(s): Left shoulder surgery X4 with pins & screws, coloposcopy -CERVICAL, D&C. Past Anesthesia/Blood Transfusion Reactions: No Reported Reaction Smoking Status: Current every day smoker - Past Family History Mother Family Medical History: Cancer Additional Family Medical History / Comment(s): Colon, Bone Cancer. Father Family Medical History: Cancer Additional Family Medical History / Comment(s): Lung Cancer. Medications and Allergies Home Medications Medication Instructions Recorded Confirmed Type ARIPiprazole [Abilify] 5 mg PO HS 12/03/13 03/10/21 History Gabapentin [Neurontin] 800 mg PO QID 12/03/13 03/10/21 History hydrOXYzine pamoate [Vistaril] 50 mg PO DAILY 12/03/13 03/10/21 History Ezetimibe [Zetia] 10 mg PO DAILY 05/14/19 03/10/21 History Venlafaxine HCl [Effexor XR] 150 mg PO DAILY 10/22/19 03/10/21 History hydrOXYzine pamoate [Vistaril] 100 mg PO HS 10/22/19 03/10/21 History lisinopriL [Zestril] 10 mg PO DAILY 10/22/19 03/10/21 History Acetaminophen/Diphenhydramine 1 - 2 tab PO HS PRN 03/10/21 03/10/21 History [Tylenol PM 500-25mg] Antioxidant 1 tab PO DAILY 03/10/21 03/10/21 History Cholecalciferol (Vitamin D3) 125 mcg PO DAILY 03/10/21 03/10/21 History [Vitamin D3 (125 MCG = 5,000 IU)] Cyanocobalamin (Vitamin B-12) 1,000 mcg PO DAILY 03/10/21 03/10/21 History [Vitamin B-12] Fenofibrate Nanocrystallized 145 mg PO DAILY 03/10/21 03/10/21 History [Fenofibrate] HYDROcodone/APAP 10-325MG [[place] 1 tab PO TID PRN 03/10/21 03/10/21 History 10-325] Multivit with Calcium,Iron,Min 1 tab PO DAILY 03/10/21 03/10/21 History [Women's Multivitamin] hydroCHLOROthiazide [Hydrodiuril] 25 mg PO DAILY 03/10/21 03/10/21 History Allergies Allergy/AdvReac Type Severity Reaction Status Date / Time No Known Allergies Allergy Verified 03/10/21 13:48 Physical Exam Vitals: Vital Signs Temp Pulse Resp BP Pulse Ox 03/10/21 13:00 72 136/38 96 03/10/21 10:33 82 139/84 97 03/10/21 10:19 18 93 L 03/10/21 10:12 100.1 F H 83 18 146/80 84 L Intake and Output 03/10/21 03/10/21 03/10/21 06:59 14:59 22:59 Other: Weight 72.575 kg 72.575 kg Constitutional: No acute distress, conversant, pleasant, currently on oxygen at 6 L per minute. Breathing is nonlabored. She is resting comfortably. Not using it as a muscle breathing. Eyes: Anicteric sclerae, moist conjunctiva, no lid-lag PERRLA ENMT: NC/AT Oropharynx clear, no erythema, exudates Neck: Supple, FROM, no masses, or JVD No carotid bruits No thyromegaly Lungs: C Normal respiratory effort, no accessory muscle use , minimal crackles in the lung bases bilaterally. Cardiovascular: Heart regular in rate and rhythm, No murmurs, gallops, or rubs No peripheral edema Abdominal: Soft Nontender, no guarding, rebound or rigidity Abdomen moving with respiration Normoactive bowel sounds No hepatomegaly, No splenomegaly No palpable mass No abdominal wall hernia noted Skin: Normal temperature, tone, texture, turgor No induration No subcutaneous nodules No rash, lesions No ulcers Extremities: Psychiatric:Alert and oriented to person, place and time Appropriate affect Intact judgement Neuro: Moves all extremities Results - Laboratory Findings CBC and BMP: 03/10/21 10:32 03/10/21 11:44 PT/INR, D-dimer PT 9.9 sec (9.0-12.0) 03/10/21 10:32 INR 0.9 (<1.2) 03/10/21 10:32 Abnormal lab findings: Abnormal Labs 03/10/21 03/10/21 03/10/21 10:32 11:09 11:44 WBC 17.3 H Neutrophils # 15.4 H Potassium 2.2 L* Chloride 130 H 113 H Carbon Dioxide 9 L* 17 L BUN 4 L Creatinine 0.35 L Glucose 67 L 123 H Calcium 4.4 L* Magnesium 1.1 L AST 47 H Alkaline Phosphatase 28 L Total Protein 3.6 L 6.2 L Albumin 1.6 L 3.4 L - Diagnostic Findings Chest x-ray: image reviewed Assessment and Plan Plan: 1 acute hypoxic respiratory failure secondary to pneumonia. Patient currently on 6 L of oxygen by nasal cannula 2 acute bilateral pneumonia. The patient has diffuse bilateral ground glass pulmonary infiltrates. The patient tested negative for COVID 19. The patient has been vaccinated for COVID 19 and her presentation is not typical of COVID 19. Other viral pathogens need to be evaluated. Atypical bacterial infection also are possible. Acute inhalational injuries, smoking induced interstitial lung disease and connective tissue disease related interstitial lung disease is felt to be less likely. Acute hypersensitivity pneumonia, acute eosinophilic pneumonia is felt to be less likely 3 COPD 4 chronic smoking and the patient smokes one pack of status today 5 hepatitis B viral infection 6 history of liver cirrhosis, nonalcoholic related 7 hypertension 8 hyperlipidemia 9 chronic anxiety/depression 10 history of cervical cancer Plan We'll check influenza A and B and RSV in addition to Legionella urine antigen and mycoplasma IgM antibodies. We'll cover the patient with accommodation of Rocephin and Zithromax. We'll see this patient with DuoNeb nebulized treatment [id number] and IV Solu-Medrol. We'll cover her IV Solu-Medrol rather than Decadron this point in time. Smoking cessation counseling was done. Nicotine patches if needed. Sputum Gram stain and culture if possible. Blood culture. 5. Oxygen flow to maintain a saturation above 90%. We'll continue to follow.
[2021-03-10] MEDS ORDERED: METHYLPREDNISOLONE SOD SUCC IVPB SCH (18:00)
[2021-03-10] MEDS ORDERED: methylPREDNISolone SOD SUCCI 125 MG/2 ML VIAL IVP SCH (18:00)
[2021-03-10] MEDS ORDERED: SODIUM CHLORIDE 0.9% IVPB SCH (18:00)
[2021-03-10] MEDS: methylPREDNISolone SOD SUCCI 125 MG/2 ML VIAL IV SCH (19:34)
[2021-03-10] MEDS: ARIPiprazole 5 MG TAB PO SCH (23:42)
[2021-03-11] MEDS: ONDANSETRON 4 MG/2 ML VIAL IVP PRN (02:43)
[2021-03-11] MEDS: methylPREDNISolone SOD SUCCI 125 MG/2 ML VIAL IV SCH ×4 (02:45→17:43)
[2021-03-11] MEDS ORDERED: ANTIOXIDANT PO SCH (09:00)
[2021-03-11] MEDS: AZITHROMYCIN 500 MG in SODIUM CHLORIDE 0.9% 250 ML IVPB SCH (09:00)
[2021-03-11] MEDS ORDERED: DEXAMETHASONE SOD PHOSPHATE 10 MG/ML 1 ML VIAL IVP SCH (09:00)
[2021-03-11] MEDS: hydrOXYzine HCL 25 MG TAB PO SCH (09:50)
[2021-03-11] MEDS: ENOXAPARIN 40 MG/0.4 ML SYRINGE SQ SCH (09:51)
--- NOTE | 2021-03-11 09:55 | P.PN ---
Subjective Progress Note Date: 03/11/21 Principal diagnosis: No chest pain no vomiting Acute hypoxia due to pneumoniae exact etiology not clear we'll start the patient on IV antibiotics IV steroids and consult pulmonology We will check computed tomography scan of the lungs to rule out PE COVID-19 test has been negative repeatedly test has been ordered Overall continues to be improving we'll continue to wean oxygen still hypoxic Anxiety Chronic pain We will avoid multiple sedations patient feels better today less short of breath still weak Constitutional: No acute distress, conversant, pleasant Eyes: Anicteric sclerae, moist conjunctiva, no lid-lag PERRLA ENMT: NC/AT Oropharynx clear, no erythema, exudates Neck: Supple, FROM, no masses, or JVD No carotid bruits No thyromegaly Lungs: crackly Clear to percussion Normal respiratory effort, no accessory muscle use Cardiovascular: Heart regular in rate and rhythm, No murmurs, gallops, or rubs No peripheral edema Abdominal: Soft Nontender, no guarding, rebound or rigidity Abdomen moving with respiration Normoactive bowel sounds No hepatomegaly, No splenomegaly No palpable mass No abdominal wall hernia noted Skin: Normal temperature, tone, texture, turgor No induration No subcutaneous nodules No rash, lesions No ulcers Extremities: No digital cyanosis No clubbing Pedal pulses intact and symmetrical Radial pulses intact and symmetrical Normal gait and station No calf tenderness Psychiatric:Alert and oriented to person, place and time Appropriate affect Intact judgement Neuro: Muscles Strength 5/5 in all 4 extremities Sensation to light touch gr ossly present throughout Cranial nerves II-XII grossly intact No focal sensory deficits Objective - Vital Signs Vital signs: Vital Signs Temp 98.3 F 03/10/21 23:42 Pulse 56 L 03/11/21 06:00 Resp 18 03/11/21 06:00 BP 185/94 03/11/21 06:00 Pulse Ox 100 03/11/21 06:00 Intake & Output 03/10/21 03/11/21 03/11/21 18:59 06:59 18:59 Weight 72.575 kg - Labs CBC & Chem 7: 03/10/21 10:32 03/10/21 11:44 Labs: Abnormal Lab Results - Last 24 Hours (Table) 03/10/21 03/10/21 03/10/21 Range/Units 10:32 11:09 11:44 WBC 17.3 H (3.8-10.6) k/uL Neutrophils # 15.4 H (1.3-7.7) k/uL D-Dimer (<0.60) mg/L FEU Potassium 2.2 L* (3.5-5.1) mmol/L Chloride 130 H 113 H (98-107) mmol/L Carbon Dioxide 9 L* 17 L (22-30) mmol/L BUN 4 L (7-17) mg/dL Creatinine 0.35 L (0.52-1.04) mg/dL Glucose 67 L 123 H (74-99) mg/dL Calcium 4.4 L* (8.4-10.2) mg/dL Magnesium 1.1 L (1.6-2.3) mg/dL AST 47 H (14-36) U/L Alkaline Phosphatase 28 L (38-126) U/L Total Protein 3.6 L 6.2 L (6.3-8.2) g/dL Albumin 1.6 L 3.4 L (3.5-5.0) g/dL Procalcitonin (0.02-0.09) ng/mL SARS-CoV-2 Ab,Total (Negative) 03/10/21 03/10/21 03/10/21 Range/Units 17:41 17:41 17:41 WBC (3.8-10.6) k/uL Neutrophils # (1.3-7.7) k/uL D-Dimer 0.68 H (<0.60) mg/L FEU Potassium (3.5-5.1) mmol/L Chloride (98-107) mmol/L Carbon Dioxide (22-30) mmol/L BUN (7-17) mg/dL Creatinine (0.52-1.04) mg/dL Glucose (74-99) mg/dL Calcium (8.4-10.2) mg/dL Magnesium (1.6-2.3) mg/dL AST (14-36) U/L Alkaline Phosphatase (38-126) U/L Total Protein (6.3-8.2) g/dL Albumin (3.5-5.0) g/dL Procalcitonin 1.59 H (0.02-0.09) ng/mL SARS-CoV-2 Ab,Total Positive A (Negative)
--- NOTE | 2021-03-11 10:52 | P.PN ---
Subjective Progress Note Date: 03/11/21 54-year-old female patient came into the hospital because of worsening shortness of breath of few days' duration. Apparently she has been also having a poor appetite and she has been eating well and she was found to be quite short of breath and hypoxic encephalopathy admission. She is a chronic smoker. She also has history of hypertension and hyperlipidemia and chronic nonalcoholic liver disease. She has also previous history of cervical cancer. Note that the chest x-ray showed diffuse bilateral groundglass infiltrates. The patient was suspected to have COVID 19 infection and the COVID 19 testing by PCR came back negative. CT angiogram was done and showed diffuse groundglass bilateral pulm onary infiltrates. No evidence of any pulmonary embolism. There is some background COPD and addition. Patient is currently on oxygen and she is on 6 L about 2 by nasal cannula. She is febrile with a T-max of 100.1. The rest of the blood work shows a white cell count of 17.3 with hemoglobin of 13, platelet counts is 419, normal coagulation profile, sodium is at 142, serum bicarb came back at 17 without any anion gap. Potassium 3.8. Normal renal function with a creatinine of 0.7. Normal LFTs. The patient has been vaccinated for COVID 19. The patient has no exposure to COVID 19. No 70 connected tissue diseases. No other complaints otherwise for now. She is a chronic smoker smokes one pack of cigarette a day. No inhalation injury. 03/11/2021, the patient is being seen in follow-up H is still in the emergency pH is awaiting a bed. Doing well. No specific complaints. COVID 19 antibodies were positive and this is expected for a vaccinated individual. Influenza A and B were negative. RSV was negative. The patient remains on bronchodilators and steroids. The patient remains on antibiotics. 4 calcitonin level is elevated at 1.59. Clinically improved and oxidation is also improved and she is currently down to 4 L with a pulse ox of 98-99%. No new complaints otherwise for now. Objective - Vital Signs Vital signs: Vital Signs Temp 98.3 F 03/10/21 23:42 Pulse 56 L 03/11/21 06:00 Resp 18 03/11/21 06:00 BP 185/94 03/11/21 06:00 Pulse Ox 100 03/11/21 06:00 Intake & Output 03/10/21 03/11/21 03/11/21 18:59 06:59 18:59 Weight 72.575 kg - Exam Constitutional: No acute distress, conversant, pleasant, currently on oxygen at 4 L per minute. Breathing is nonlabored. She is resting comfortably. Not using it as a muscle breathing. Eyes: Anicteric sclerae, moist conjunctiva, no lid-lag PERRLA ENMT: NC/AT Oropharynx clear, no erythema, exudates Neck: Supple, FROM, no masses, or JVD No carotid bruits No thyromegaly Lungs: C Normal respiratory effort, no accessory muscle use , minimal crackles in the lung bases bilaterally. Cardiovascular: Heart regular in rate and rhythm, No murmurs, gallops, or rubs No peripheral edema Abdominal: Soft Nontender, no guarding, rebound or rigidity Abdomen moving with respiration Normoactive bowel sounds No hepatomegaly, No splenomegaly No palpable mass No abdominal wall hernia noted Skin: Normal temperature, tone, texture, turgor No induration No subcutaneous nodules No rash, lesions No ulcers Extremities: Psychiatric:Alert and oriented to person, place and time Appropriate affect Int act judgement Neuro: Moves all extremities - Labs CBC & Chem 7: 03/10/21 10:32 03/10/21 11:44 Labs: Abnormal Lab Results - Last 24 Hours (Table) 03/10/21 03/10/21 03/10/21 Range/Units 10:32 11:09 11:44 WBC 17.3 H (3.8-10.6) k/uL Neutrophils # 15.4 H (1.3-7.7) k/uL D-Dimer (<0.60) mg/L FEU Potassium 2.2 L* (3.5-5.1) mmol/L Chloride 130 H 113 H (98-107) mmol/L Carbon Dioxide 9 L* 17 L (22-30) mmol/L BUN 4 L (7-17) mg/dL Creatinine 0.35 L (0.52-1.04) mg/dL Glucose 67 L 123 H (74-99) mg/dL Calcium 4.4 L* (8.4-10.2) mg/dL Magnesium 1.1 L (1.6-2.3) mg/dL AST 47 H (14-36) U/L Alkaline Phosphatase 28 L (38-126) U/L Total Protein 3.6 L 6.2 L (6.3-8.2) g/dL Albumin 1.6 L 3.4 L (3.5-5.0) g/dL Procalcitonin (0.02-0.09) ng/mL SARS-CoV-2 Ab,Total (Negative) 03/10/21 03/10/21 03/10/21 Range/Units 17:41 17:41 17:41 WBC (3.8-10.6) k/uL Neutrophils # (1.3-7.7) k/uL D-Dimer 0.68 H (<0.60) mg/L FEU Potassium (3.5-5.1) mmol/L Chloride (98-107) mmol/L Carbon Dioxide (22-30) mmol/L BUN (7-17) mg/dL Creatinine (0.52-1.04) mg/dL Glucose (74-99) mg/dL Calcium (8.4-10.2) mg/dL Magnesium (1.6-2.3) mg/dL AST (14-36) U/L Alkaline Phosphatase (38-126) U/L Total Protein (6.3-8.2) g/dL Albumin (3.5-5.0) g/dL Procalcitonin 1.59 H (0.02-0.09) ng/mL SARS-CoV-2 Ab,Total Positive A (Negative) Assessment and Plan Plan: 1 acute hypoxic respiratory failure secondary to pneumonia. Patient currently on 6 L of oxygen by nasal cannula 2 acute bilateral pneumonia. The patient has diffuse bilateral ground glass pulmonary infiltrates. The patient tested negative for COVID 19. The patient has been vaccinated for COVID 19 and her presentation is not typical of COVID 19. Other viral pathogens need to be evaluated. Atypical bacterial infection also are possible. Acute inhalational injuries, smoking induced interstitial lung disease and connective tissue disease related interstitial lung disease is felt to be less likely. Acute hypersensitivity pneumonia, acute eosinophilic pneumonia is felt to be less likely 3 COPD 4 chronic smoking and the patient smokes one pack of status today 5 hepatitis B viral infection 6 history of liver cirrhosis, nonalcoholic related 7 hypertension 8 hyperlipidemia 9 chronic anxiety/depression 10 history of cervical cancer Plan We'll check influenza A and B and RSV were negative and was still awaiting the rest or with some including Legionella urine antigen and mycoplasma IgM antibodies. We'll cover the patient with Rocephin and Zithromax, the progesterone is elevated.. We'll see this patient with DuoNeb nebulized treatment [id number] and IV Solu-Medrol. We'll cover her IV Solu-Medrol rather than Decadron this point in time. Smoking cessation counseling was done. Nicotine patches if needed. Sputum Gram stain and culture if possible. Blood culture. Actually was improving and the patient is currently on 4 L. We'll continue to wean it down further. We'll continue to follow.
[2021-03-11 11:05] LABS: Basophils # (A) 0.07 X 10*3/uL (0.00-0.10); Basophils % (A) 0.4 %; Eosinophils # (A) 0.08 X 10*3/uL (0.04-0.35); Eosinophils % (A) 0.4 %; HCT 34.7 % (37.2-46.3); Lymphocytes % (A) 7.9 %; MCH 29.7 pg (27.0-32.0); MCHC 31.7 g/dL (32.0-37.0); MCV 93.8 fL (80.0-97.0); Mean Platelet Volume 9.4 fL (9.5-12.2); Monocytes % (A) 3.1 %; Neutrophils # (A) 16.48 X 10*3/uL (1.80-7.70); Neutrophils % (A) 86.5 %; Platelet Count 429 X 10*3/uL (140-440); RDW 14.8 % (11.5-14.5); WBC 19.06 X 10*3/uL (4.50-10.00)
[2021-03-11 11:33] LABS: ALT 36 U/L (8-44); AST 46 U/L (13-35); African American GFR (CKD) 95.5 (60.0-200.0); Albumin 3.7 g/dL (3.8-4.9); Albumin/Globulin Ratio 1.54 (1.60-3.17); Alkaline Phosphatase 104 U/L (41-126); Blood Urea Nitrogen 10.4 mg/dL (9.0-27.0); Calcium 8.8 mg/dL (8.7-10.3); Carbon Dioxide 19.6 mmol/L (20.0-27.5); Chloride 107 mmol/L (96-109); Globulin 2.4 g/dL (1.6-3.3); Glucose 116 mg/dL (70-110); Non-African American GFR(CKD) 82.4 (60.0-200.0); Sodium 140 mmol/L (135-145); Total Bilirubin <0.20 mg/dL (0.30-1.20); Total Protein 6.1 g/dL (6.2-8.2)
[2021-03-11] MEDS: SODIUM CHLORIDE 0.9% 1,000 ML IV SCH ×4 (12:05→22:18)
[2021-03-11] MEDS: VENLAFAXINE HCL ER 150 MG CAP PO SCH (12:06)
[2021-03-11] MEDS: ARIPiprazole 5 MG TAB PO SCH (22:18)
[2021-03-12] MEDS: methylPREDNISolone SOD SUCCI 125 MG/2 ML VIAL IV SCH ×5 (00:46→23:55)
[2021-03-12] MEDS: SODIUM CHLORIDE 0.9% 1,000 ML IV SCH ×2 (06:10→13:49)
[2021-03-12 07:54] VITALS: RESP 18
[2021-03-12] MEDS: ENOXAPARIN 40 MG/0.4 ML SYRINGE SQ SCH (08:44)
[2021-03-12] MEDS: ZINC SULFATE 220 MG CAP PO SCH (08:45)
[2021-03-12] MEDS: hydrOXYzine HCL 25 MG TAB PO SCH (08:45)
[2021-03-12] MEDS: VENLAFAXINE HCL ER 150 MG CAP PO SCH (08:45)
[2021-03-12] MEDS: CHOLECALCIFEROL 125 MCG (5000 IU) TABLET PO SCH (08:45)
[2021-03-12] MEDS: ASCORBIC ACID 500 MG TAB PO SCH (08:45)
[2021-03-12 09:44] LABS: ALT 38 U/L (4-34); AST 38 U/L (14-36); African American GFR (CKD) >90 (>60 ml/min/1.73 sqM); Albumin 3.3 g/dL (3.5-5.0); Albumin/Globulin Ratio 1.2; Alkaline Phosphatase 91 U/L (38-126); Anion Gap 6 mmol/L; Blood Urea Nitrogen 13 mg/dL (7-17); C Reactive Protein 6.4 mg/dL (<1.0); Calcium 8.7 mg/dL (8.4-10.2); Carbon Dioxide 21 mmol/L (22-30); Chloride 108 mmol/L (98-107); Globulin 2.7 g/dL; Glucose 206 mg/dL (74-99); LDH 937 U/L (313-618); Non-African American GFR(CKD) >90 (>60 ml/min/1.73 sqM); Potassium 4.1 mmol/L (3.5-5.1); Sodium 135 mmol/L (137-145); Total Bilirubin 0.2 mg/dL (0.2-1.3)
[2021-03-12] MEDS: AZITHROMYCIN 500 MG in SODIUM CHLORIDE 0.9% 250 ML IVPB SCH (09:44)
[2021-03-12 11:40] LABS: Basophils # (A) 0.12 X 10*3/uL (0.00-0.10); Basophils % (A) 0.8 %; Eosinophils # (A) 0 X 10*3/uL (0.04-0.35); Eosinophils % (A) 0 %; HCT 34.5 % (37.2-46.3); HGB 10.9 g/dL (12.0-15.0); Lymphocytes # (A) 0.78 X 10*3/uL (0.90-5.00); Lymphocytes % (A) 5.1 %; MCH 29.6 pg (27.0-32.0); MCHC 31.6 g/dL (32.0-37.0); MCV 93.8 fL (80.0-97.0); Mean Platelet Volume 9.1 fL (9.5-12.2); Monocytes # (A) 0.25 X 10*3/uL (0.20-1.00); Monocytes % (A) 1.7 %; Neutrophils # (A) 13.54 X 10*3/uL (1.80-7.70); Neutrophils % (A) 89.4 %; Platelet Count 429 X 10*3/uL (140-440); RBC 3.68 X 10*6/uL (4.10-5.20); RDW 14.7 % (11.5-14.5); WBC 15.15 X 10*3/uL (4.50-10.00)
[2021-03-12] MEDS: ALBUTEROL HFA INHALER INHALATION PRN ×2 (12:21→16:14)
[2021-03-12 12:40] VITALS: BMI 31.2
--- NOTE | 2021-03-12 13:51 | P.PN ---
Subjective Progress Note Date: 03/12/21 Hospital course: Patient is a very pleasant 55-year-old female with a past medical history of hypertension, hyperlipidemia, anxiety, nicotine dependence smoking one pack of cigarettes daily, and chronic pain. She presented to the emergency department on 03/10/21 with a chief complaint of shortness of breath, fever, and chills accompanied by decreased appetite, general body aches, cough, and congestion. Chest x-ray revealed worsening bilateral reticular opacities suggestive of worsening infiltrates and/or edema correlating for atypical infection. EKG showing normal sinus rhythm at 80 bpm. Chest x-ray showing no evidence for acute pulmonary emboli, mild underlying emphysematous changes with bilateral multifocal areas of groundglass opacities. Covid PCR negative, Covid antibodies positive (but this is expected in vaccinated individual). Patient was started on antibiotics for treatment of community-acquired pneumonia with Rocephin and azithromycin. She was admitted under our services with consultation to pulmonology. Physical exam: Patient seen and fully evaluated at bedside this morning. She was sitting up in bed on 2 L O2 via nasal cannula. Patient reports continued general body aches and mild shortness of breath but states she is feeling much better now than how she felt when she came in. Patient on 2 L O2 via nasal cannula with SpO2 of 90%-92%. Vital signs reviewed and stable. General: Nontoxic, no distress and appears stated age. Derm: Skin warm and dry, normal coloration for ethnicity. Head: Atraumatic, normocephalic and symmetric. Eyes: EOMs intact, no lid lag, and anicteric sclera Mouth: no lip lesions, mucus membranes moist Cardiovascular: regular rate and rhythm with normal S1S2, no murmur, positive posterior tibial pulses bilaterally, and cap refill < 2 seconds. Lungs: Respirations even, regular, and unlabored on room air. Lungs CTA bilaterally, no rhonchi, no rales, no wheezing, and no accessory muscle usage. Abdominal: soft, nontender to palpation, no guarding, no appreciable organomegaly Ext: ROM intact. No gross muscle atrophy, no edema, no contractures Neuro: Speech clear, face symmetrical and CN II-XII grossly intact with no noted focal neuro deficits Psych: Alert and oriented to person, place, time, and situation. Appropriate and pleasant affect. Assessment and Plan of Care: Acute respiratory failure with hypoxia secondary to bilateral community acquired pneumonia -Oxygenation to be administered and titrated as needed to maintain SPO2 equal to or greater than 90% -Telemetry monitoring. -Continue antibiotics: Rocephin and azithromycin -Sputum culture pending -Blood culture showing no growth 24 hours -Influenza A&B and Covid PCRs negative -Urine Legionella antigen negative -Mycoplasma pneumoniae IgM negative at 0.21. -Encourage Incentive Spirometry 10-15x hourly while awake -Steroids: Solu-Medrol 60 mg IVP every 6 hours -Pulmonology following, appreciate further recommendations. -DuoNeb scheduled and as needed. Hypertension -Monitor vital signs and continue daily medication regimen with lisinopril and h ydrochlorothiazide. Hyperlipidemia/triglyceridemia -Continue daily medication regimen with fenofibrate. Anxiety -Continue daily medication regimen with Effexor and Atarax. CODE STATUS: Full code DVT prophylaxis: Lovenox Discussed with: Patient and RN Anticipated discharge date: Clinical course to determine, possibly tomorrow if patient continues to improve. Anticipated discharge place: Home A total of 45 minutes was spent on the care of this complex patient more than 50% of the time was spent in counseling and care coordination. Objective - Vital Signs Vital signs: Vital Signs Temp 98.6 F 03/12/21 07:54 Pulse 50 L 03/12/21 07:54 Resp 18 03/12/21 07:54 BP 159/86 03/12/21 07:54 Pulse Ox 99 03/12/21 07:54 Intake & Output 03/11/21 03/12/21 03/12/21 18:59 06:59 18:59 Other: # Voids 1 3 # Bowel Movements 0 - Labs CBC & Chem 7: 03/12/21 08:46 03/12/21 08:46 Labs: Abnormal Lab Results - Last 24 Hours (Table) 03/10/21 03/11/21 03/11/21 Range/Units 17:41 07:18 07:18 WBC 19.06 H (4.50-10.00) X 10*3/uL RBC 3.70 L (4.10-5.20) X 10*6/uL Hgb 11.0 L (12.0-15.0) g/dL Hct 34.7 L (37.2-46.3) % MCHC 31.7 L (32.0-37.0) g/dL RDW 14.8 H (11.5-14.5) % MPV 9.4 L (9.5-12.2) fL Immature Gran # 0.33 H (0.00-0.04) X 10*3/uL Neutrophils # 16.48 H (1.80-7.70) X 10*3/uL Carbon Dioxide 19.6 L (20.0-27.5) mmol/L Glucose 116 H (70-110) mg/dL Total Bilirubin <0.20 L (0.30-1.20) mg/dL AST 46 H (13-35) U/L Total Protein 6.1 L (6.2-8.2) g/dL Albumin 3.7 L (3.8-4.9) g/dL Albumin/Globulin Ratio 1.54 L (1.60-3.17) g/dL Procalcitonin 1.59 H (0.02-0.09) ng/mL Microbiology - Last 24 Hours (Table) 03/10/21 12:40 Blood Culture - Preliminary Blood No Growth after 24 hours 03/10/21 13:00 Blood Culture - Preliminary Blood No Growth after 24 hours
--- NOTE | 2021-03-12 15:24 | P.PN ---
Subjective Progress Note Date: 03/12/21 54-year-old female patient came into the hospital because of worsening shortness of breath of few days' duration. Apparently she has been also having a poor appetite and she has been eating well and she was found to be quite short of breath and hypoxic encephalopathy admission. She is a chronic smoker. She also has history of hypertension and hyperlipidemia and chronic nonalcoholic liver disease. She has also previous history of cervical cancer. Note that the chest x-ray showed diffuse bilateral groundglass infiltrates. The patient was suspected to have COVID 19 infection and the COVID 19 testing by PCR came back negative. CT angiogram was done and showed diffuse groundglass bilateral pulm onary infiltrates. No evidence of any pulmonary embolism. There is some background COPD and addition. Patient is currently on oxygen and she is on 6 L about 2 by nasal cannula. She is febrile with a T-max of 100.1. The rest of the blood work shows a white cell count of 17.3 with hemoglobin of 13, platelet counts is 419, normal coagulation profile, sodium is at 142, serum bicarb came back at 17 without any anion gap. Potassium 3.8. Normal renal function with a creatinine of 0.7. Normal LFTs. The patient has been vaccinated for COVID 19. The patient has no exposure to COVID 19. No 70 connected tissue diseases. No other complaints otherwise for now. She is a chronic smoker smokes one pack of cigarette a day. No inhalation injury. 03/11/2021, the patient is being seen in follow-up H is still in the emergency pH is awaiting a bed. Doing well. No specific complaints. COVID 19 antibodies were positive and this is expected for a vaccinated individual. Influenza A and B were negative. RSV was negative. The patient remains on bronchodilators and steroids. The patient remains on antibiotics. 4 calcitonin level is elevated at 1.59. Clinically improved and oxidation is also improved and she is currently down to 4 L with a pulse ox of 98-99%. No new complaints otherwise for now. 03/12/2021 seeing the patient for a follow-up. The patient is doing well for now. Noted her workup has been essentially negative including COVID 19 infection. Her antibodies came back positive indicating underlying vaccination. Vital screen came back negative including influenza A and B and RSV. Digital urine antigen came back negative. Clinically she is doing well. She is impr oving. She is only on 2 L of oxygen by nasal cannula. Bronchospasm wheezing is also improved. She did have an interstitial pneumonia, admission. Pronestyl level was also elevated suspecting bacterial infection. On today's evaluation, d-dimer is at 1.3, white cell count of 15.1, hemoglobin is at 10.9, her rest of the blood work essentially within normal limits. Blood glucose is up to 6 and LDH is at 937 with a CRP of 6.4. She remains on a combination of antibiotics including Rocephin and Zithromax patient is also on IV Solu-Medrol 60 mg IV push every 6 hours. All medications been ordered resume. Objective - Vital Signs Vital signs: Vital Signs Temp 98.7 F 03/12/21 15:01 Pulse 50 L 03/12/21 15:01 Resp 18 03/12/21 15:01 BP 167/76 03/12/21 15:01 Pulse Ox 96 03/12/21 15:01 Intake & Output 03/11/21 03/12/21 03/12/21 18:59 06:59 18:59 Weight 72.575 kg Other: # Voids 1 3 # Bowel Movements 0 - Exam Constitutional: No acute distress, conversant, pleasant, currently on oxygen at 4 L per minute. Breathing is nonlabored. She is resting comfortably. Not using it as a muscle breathing. Eyes: Anicteric sclerae, moist conjunctiva, no lid-lag PERRLA ENMT: NC/AT Oropharynx clear, no erythema, exudates Neck: Supple, FROM, no masses, or JVD No carotid bruits No thyromegaly Lungs: C Normal respiratory effort, no accessory muscle use , minimal crackles in the lung bases bilaterally. Cardiovascular: Heart regular in rate and rhythm, No murmurs, gallops, or rubs No peripheral edema Abdominal: Soft Nontender, no guarding, rebound or rigidity Abdomen moving with respiration Normoactive bowel sounds No hepatomegaly, No splenomegaly No p alpable mass No abdominal wall hernia noted Skin: Normal temperature, tone, texture, turgor No induration No subcutaneous nodules No rash, lesions No ulcers Extremities: Psychiatric:Alert and oriented to person, place and time Appropriate affect Intact judgement Neuro: Moves all extremities - Labs CBC & Chem 7: 03/12/21 08:46 03/12/21 08:46 Labs: Abnormal Lab Results - Last 24 Hours (Table) 03/12/21 03/12/21 03/12/21 Range/Units 08:46 08:46 08:46 WBC 15.15 H (4.50-10.00) X 10*3/uL RBC 3.68 L (4.10-5.20) X 10*6/uL Hgb 10.9 L (12.0-15.0) g/dL Hct 34.5 L (37.2-46.3) % MCHC 31.6 L (32.0-37.0) g/dL RDW 14.7 H (11.5-14.5) % MPV 9.1 L (9.5-12.2) fL Immature Gran # 0.46 H (0.00-0.04) X 10*3/uL Neutrophils # 13.54 H (1.80-7.70) X 10*3/uL Lymphocytes # 0.78 L (0.90-5.00) X 10*3/uL Eosinophils # 0 L (0.04-0.35) X 10*3/uL Basophils # 0.12 H (0.00-0.10) X 10*3/uL D-Dimer 1.32 H (<0.60) mg/L FEU Sodium 135 L (137-145) mmol/L Chloride 108 H (98-107) mmol/L Carbon Dioxide 21 L (22-30) mmol/L Glucose 206 H (74-99) mg/dL AST 38 H (14-36) U/L ALT 38 H (4-34) U/L Lactate Dehydrogenase 937 H (313-618) U/L C-Reactive Protein 6.4 H (<1.0) mg/dL Total Protein 6.0 L (6.3-8.2) g/dL Albumin 3.3 L (3.5-5.0) g/dL Microbiology - Last 24 Hours (Table) 03/10/21 13:00 Blood Culture - Preliminary Blood No Growth after 48 hours 03/10/21 12:40 Blood Culture - Preliminary Blood No Growth after 48 hours 03/12/21 09:00 Sputum Culture - Preliminary Sputum Assessment and Plan Plan: 1 acute hypoxic respiratory failure secondary to pneumonia. Patient currently on 2 L of oxygen by nasal cannula and she is clinically improving 2 acute bilateral pneumonia. The patient has diffuse bilateral ground glass pulmonary infiltrates. The patient tested negative for COVID 19. The patient has been vaccinated for COVID 19 and her presentation is not typical of COVID 19. Other viral pathogens need to be evaluated. Atypical bacterial infection also are possible. Acute inhalational injuries, smoking induced interstitial lung disease and connective tissue disease related interstitial lung disease is felt to be less likely. Acute hypersensitivity pneumonia, acute eosinophilic pneumonia is felt to be less likely 3 COPD 4 chronic smoking and the patient smokes one pack of status today 5 hepatitis B viral infection 6 history of liver cirrhosis, nonalcoholic related 7 hypertension 8 hyperlipidemia 9 chronic anxiety/depression 10 history of cervical cancer Plan We'll check influenza A and B and RSV were negative and was still awaiting the rest or with some including Legionella urine antigen and mycoplasma IgM antibodies. Clinically improving Repeat chest x-ray in the morning Continue Rocephin and Zithromax Continue IV Solu Medrol start tapering the steroids as of tomorrow Current densities approximately nasal cannula Positive antibodies to COVID 19 indicating previous vaccination. We'll continue to follow
[2021-03-12] MEDS: ARIPiprazole 5 MG TAB PO SCH (21:10)
[2021-03-12] MEDS: ONDANSETRON 4 MG/2 ML VIAL IVP PRN (23:55)
[2021-03-13] MEDS: methylPREDNISolone SOD SUCCI 125 MG/2 ML VIAL IV SCH ×2 (06:03→12:44)
--- NOTE | 2021-03-13 06:48 | XR ---
EXAMINATION TYPE: XR chest 1V portable DATE OF EXAM: 03/13/2021 COMPARISON: 03/10/2021 HISTORY: Pneumonia TECHNIQUE: Single frontal view of the chest is obtained. FINDINGS: There has been interval development of mild diffuse interstitial opacity. Heart size is mi ldly prominent. There is no large pleural effusion. There is no pneumothorax. The osseous structures are intact IMPRESSION: Interval development of mild diffuse interstitial opacity with mild cardiomegaly.
[2021-03-13] MEDS: ENOXAPARIN 40 MG/0.4 ML SYRINGE SQ SCH (07:32)
[2021-03-13] MEDS: VENLAFAXINE HCL ER 150 MG CAP PO SCH (07:32)
[2021-03-13] MEDS: CHOLECALCIFEROL 125 MCG (5000 IU) TABLET PO SCH (07:32)
[2021-03-13] MEDS: ZINC SULFATE 220 MG CAP PO SCH (07:33)
[2021-03-13] MEDS: ASCORBIC ACID 500 MG TAB PO SCH (07:33)
[2021-03-13] MEDS ORDERED: FENOFIBRATE 160 MG TAB PO SCH (09:00)
[2021-03-13] MEDS ORDERED: hydroCHLOROthiazide 25 MG TAB PO SCH (09:00)
[2021-03-13] MEDS ORDERED: lisinopriL 10 MG TAB PO SCH (09:00)
[2021-03-13] MEDS: hydrOXYzine HCL 25 MG TAB PO SCH (09:25)
[2021-03-13] MEDS: ALBUTEROL HFA INHALER INHALATION PRN ×2 (10:23→13:12)
[2021-03-13 10:44] VITALS: BP 174/63; PULSE 52; TEMP 98.2
[2021-03-13 11:46] LABS: HCT 33.8 % (37.2-46.3); HGB 11.2 g/dL (12.0-15.0); MCH 29.9 pg (27.0-32.0); MCHC 33.1 g/dL (32.0-37.0); MCV 90.4 fL (80.0-97.0); Mean Platelet Volume 9.2 fL (9.5-12.2); Platelet Count 428 X 10*3/uL (140-440); RBC 3.74 X 10*6/uL (4.10-5.20); RDW 14.5 % (11.5-14.5)
[2021-03-13] MEDS: AZITHROMYCIN 500 MG in SODIUM CHLORIDE 0.9% 250 ML IVPB SCH (11:51)
[2021-03-13 12:27] LABS: Magnesium 2.2 mg/dL (1.5-2.4)
[2021-03-13 12:48] LABS: African American GFR (CKD) 112.3 (60.0-200.0); Anion Gap 16.4 mmol/L (10.00-18.00); BUN/Creat Ratio 24.43 Ratio (12.00-20.00); Blood Urea Nitrogen 17.1 mg/dL (9.0-27.0); Calcium 8.7 mg/dL (8.7-10.3); Carbon Dioxide 19.6 mmol/L (20.0-27.5); Non-African American GFR(CKD) 96.9 (60.0-200.0); Potassium 4.1 mmol/L (3.5-5.5)
--- NOTE | 2021-03-13 13:01 | P.DS ---
Providers Date of admission: 03/10/21 13:18 Expected date of discharge: 03/13/21 Attending physician: Stephani Black DO Consults: 03/10/21 13:56 Consult Physician Stat Consulting Provider: Enrique Richardson Consult Reason/Comments: PNA Do you want consulting provider notified?: Yes Primary care physician: Nasim Lloyd MD Hospital Course: Discharge Diagnosis: Acute respiratory failure with hypoxia secondary to bilateral community acquired pneumonia Hypertension Hyperlipidemia/triglyceridemia Anxiety Hospital Course: Patient is a very pleasant 55-year-old female with a past medical history of hypertension, hyperlipidemia, anxiety, nicotine dependence smoking one pack of cigarettes daily, and chronic pain. She presented to the emergency department on 03/10/21 with a chief complaint of shortness of breath, fever, and chills accompanied by decreased appetite, general body aches, cough, and congestion. Chest x-ray revealed worsening bilateral reticular opacities suggestive of worsening infiltrates and/or edema correlating for atypical infection. EKG showing normal sinus rhythm at 80 bpm. Chest x-ray showing no evidence for acute pulmonary emboli, mild underlying emphysematous changes with bilateral multifocal areas of groundglass opacities. Covid PCR negative, Covid antibodies positive (but this is expected in vaccinated individual). Patient was started on antibiotics for treatment of community-acquired pneumonia with Rocephin and azithromycin. She was admitted under our services with consultation to pulmonology. Repeat chest x-ray completed 03/13/21 showing interval development of mild diffuse interstitial opacities with mild cardiomegaly. Patient's con dition is stable, she has been completely weaned off of oxygen. At rest SpO2 is 95% and with ambulation up and down halls pulse ox maintained at 93% or above. Patient encouraged to Stop smoking. She is being discharged home on azithromycin, Medrol Dosepak, and Ventolin inhaler. Patient encouraged to follow-up with her PCP in 2 days and with reclaimer in 2 weeks. Physical exam: Patient seen and fully evaluated at the bedside this morning. Patient reports feeling great and was getting up to get into the shower. Patient is on room air and SpO2 95% at rest and 93% with ambulation. Patient denies having any complaints at this time including headache, lightheadedness, dizziness, chest pain, palpitations, nausea, vomiting, or experiencing any numbness/weakness/swelling/tingling in her extremities. Patient medically stable for discharge home at this time. WBC is down to 13.5 from previous 19.06. Patient to complete 7 day course of antibiotics. Vital signs reviewed and stable. General: Nontoxic, no distress and appears stated age. Derm: Skin warm and dry, normal coloration for ethnicity. Head: Atraumatic, normocephalic and symmetric. Eyes: EOMs intact, no lid lag, and anicteric sclera Mouth: no lip lesions, mucus membranes moist Cardiovascular: regular rate and rhythm with normal S1S2, no murmur, positive posterior tibial pulses bilaterally, and cap refill < 2 seconds. Lungs: Respirations even, regular, and unlabored on room air. Lungs CTA bilaterally, no rhonchi, no rales, no wheezing, and no accessory muscle usage. Abdominal: soft, nontender to palpation, no guarding, no appreciable organomegaly Ext: ROM intact. No gross muscle atrophy, no edema, no contractures Neuro: Speech clear, face symmetrical and CN II-XII grossly intact with no noted focal neuro deficits Psych: Alert and oriented to person, place, time, and situation. Appropriate and pleasant affect. A total of 40 minutes of time were spent preparing this complex discharge summary. Patient Condition at Discharge: Stable Plan - Discharge Summary Discharge Rx Participant: No New Discharge Prescriptions: New Azithromycin [Zithromax Tri-Max (3 tabs)] 500 mg PO DAILY 4 Days #4 tab methylPREDNISolone Dose Pack [Medrol Dose Pack] 4 mg PO DIRECTED #21 tab Albuterol Inhaler [Ventolin Hfa Inhaler] 2 puff INHALATION RT-Q2H PRN #1 inh PRN Reason: Shortness Of Breath Or Wheezing Continue hydrOXYzine pamoate [Vistaril] 50 mg PO DAILY Gabapentin [Neurontin] 800 mg PO QID ARIPiprazole [Abilify] 5 mg PO HS Ezetimibe [Zetia] 10 mg PO DAILY hydrOXYzine pamoate [Vistaril] 100 mg PO HS lisinopriL [Zestril] 10 mg PO DAILY Venlafaxine HCl [Effexor XR] 150 mg PO DAILY Antioxidant 1 tab PO DAILY Cholecalciferol (Vitamin D3) [Vitamin D3 (125 MCG = 5,000 IU)] 125 mcg PO DAILY Acetaminophen/Diphenhydramine [Tylenol PM 500-25mg] 1 - 2 tab PO HS PRN PRN Reason: Insomnia hydroCHLOROthiazide [Hydrodiuril] 25 mg PO DAILY Cyanocobalamin (Vitamin B-12) [Vitamin B-12] 1,000 mcg PO DAILY HYDROcodone/APAP 10-325MG [[place] 10-325] 1 tab PO TID PRN PRN Reason: Pain Fenofibrate Nanocrystallized [Fenofibrate] 145 mg PO DAILY Multivit with Calcium,Iron,Min [Women's Multivitamin] 1 tab PO DAILY Discharge Medication List ARIPiprazole [Abilify] 5 mg PO HS 12/03/13 [History] Gabapentin [Neurontin] 800 mg PO QID 12/03/13 [History] hydrOXYzine pamoate [Vistaril] 50 mg PO DAILY 12/03/13 [History] Ezetimibe [Zetia] 10 mg PO DAILY 05/14/19 [History] Venlafaxine HCl [Effexor XR] 150 mg PO DAILY 10/22/19 [History] hydrOXYzine pamoate [Vistaril] 100 mg PO HS 10/22/19 [History] lisinopriL [Zestril] 10 mg PO DAILY 10/22/19 [History] Acetaminophen/Diphenhydramine [Tylenol PM 500-25mg] 1 - 2 tab PO HS PRN 03/10/21 [History] Antioxidant 1 tab PO DAILY 03/10/21 [History] Cholecalciferol (Vitamin D3) [Vitamin D3 (125 MCG = 5,000 IU)] 125 mcg PO DAILY 03/10/21 [History] Cyanocobalamin (Vitamin B-12) [Vitamin B-12] 1,000 mcg PO DAILY 03/10/21 [History] Fenofibrate Nanocrystallized [Fenofibrate] 145 mg PO DAILY 03/10/21 [History] HYDROcodone/APAP 10-325MG [[place] 10-325] 1 tab PO TID PRN 03/10/21 [History] Multivit with Calcium,Iron,Min [Women's Multivitamin] 1 tab PO DAILY 03/10/21 [History] hydroCHLOROthiazide [Hydrodiuril] 25 mg PO DAILY 03/10/21 [History] Albuterol Inhaler [Ventolin Hfa Inhaler] 2 puff INHALATION RT-Q2H PRN #1 inh 03/13/21 [Rx] Azithromycin [Zithromax Tri-Max (3 tabs)] 500 mg PO DAILY 4 Days #4 tab 03/13/21 [Rx] methylPREDNISolone Dose Pack [Medrol Dose Pack] 4 mg PO DIRECTED #21 tab [Rx] Follow up Appointment(s)/Referral(s): Nasim Lloyd MD [Primary Care Provider] - 1-2 days Enrique Richardson MD [STAFF PHYSICIAN] - 2 Weeks Activity/Diet/Wound Care/Special Instructions: Activity: As tolerated. Take breaks as needed. Diet: Heart healthy and carb consistent diet. Avoid salts, or foods with hidden salts such as canned or boxed foods and frozen dinners. Extra salt makes your heart work harder and traps the fluid in your body for longer. Special Instructions: Take all of your medications as directed and remember to keep all of your doctor's appointments and follow-up as needed. Thank you for allowing us to participate in your care, it was truly a pleasure having you for our patient!!! Discharge Disposition: HOME SELF-CARE
--- NOTE | 2021-03-13 16:37 | P.PN ---
Subjective Progress Note Date: 03/13/21 54-year-old female patient came into the hospital because of worsening shortness of breath of few days' duration. Apparently she has been also having a poor appetite and she has been eating well and she was found to be quite short of breath and hypoxic encephalopathy admission. She is a chronic smoker. She also has history of hypertension and hyperlipidemia and chronic nonalcoholic liver disease. She has also previous history of cervical cancer. Note that the chest x-ray showed diffuse bilateral groundglass infiltrates. The patient was suspected to have COVID 19 infection and the COVID 19 testing by PCR came back negative. CT angiogram was done and showed diffuse groundglass bilateral pulmo nary infiltrates. No evidence of any pulmonary embolism. There is some background COPD and addition. Patient is currently on oxygen and she is on 6 L about 2 by nasal cannula. She is febrile with a T-max of 100.1. The rest of the blood work shows a white cell count of 17.3 with hemoglobin of 13, platelet counts is 419, normal coagulation profile, sodium is at 142, serum bicarb came back at 17 without any anion gap. Potassium 3.8. Normal renal function with a creatinine of 0.7. Normal LFTs. The patient has been vaccinated for COVID 19. The patient has no exposure to COVID 19. No 70 connected tissue diseases. No other complaints otherwise for now. She is a chronic smoker smokes one pack of cigarette a day. No inhalation injury. 03/11/2021, the patient is being seen in follow-up H is still in the emergency pH is awaiting a bed. Doing well. No specific complaints. COVID 19 antibodies were positive and this is expected for a vaccinated individual. Influenza A and B were negative. RSV was negative. The patient remains on bronchodilators and steroids. The patient remains on antibiotics. 4 calcitonin level is elevated at 1.59. Clinically improved and oxidation is also improved and she is currently down to 4 L with a pulse ox of 98-99%. No new complaints otherwise for now. 03/12/2021 seeing the patient for a follow-up. The patient is doing well for now. Noted her workup has been essentially negative including COVID 19 infection. Her antibodies came back positive indicating underlying vaccination. Vital screen came back negative including influenza A and B and RSV. Digital urine antigen came back negative. Clinically she is doing well. She is impro ving. She is only on 2 L of oxygen by nasal cannula. Bronchospasm wheezing is also improved. She did have an interstitial pneumonia, admission. Pronestyl level was also elevated suspecting bacterial infection. On today's evaluation, d-dimer is at 1.3, white cell count of 15.1, hemoglobin is at 10.9, her rest of the blood work essentially within normal limits. Blood glucose is up to 6 and LDH is at 937 with a CRP of 6.4. She remains on a combination of antibiotics including Rocephin and Zithromax patient is also on IV Solu-Medrol 60 mg IV push every 6 hours. All medications been ordered resume. The patient is seen today 03/13/2021 in follow-up on the regular medical floor. She is doing much better. Feeling nearly back to her baseline. Occasional dry nonproductive cough. No fever or chills. Good O2 saturations in the 90s on room air. Chest x-ray shows mild diffuse interstitial opacities. Mild cardiomegaly. Blood cultures reveal no growth. Sputum culture revealed no grow th. Legionella antigen was negative. Pro-calcitonin 0.52. Sodium 137. Potassium 4.1. Creatinine 0.7. White count 13.5. Hemoglobin 11.2. He is continued on azithromycin and ceftriaxone along with bronchodilators. Objective - Vital Signs Vital signs: Vital Signs Temp 98.2 F 03/13/21 10:44 Pulse 52 L 03/13/21 10:44 Resp 18 03/13/21 10:44 BP 174/63 03/13/21 10:44 Pulse Ox 95 03/13/21 12:47 Intake & Output 03/12/21 03/13/21 03/13/21 18:59 06:59 18:59 Weight 72.575 kg Other: Voiding Method Toilet # Voids 4 2 # Bowel Movements 1 0 - Exam Constitutional: No acute distress, conversant, pleasant, 55-year-old female patient, on room air, breathing is nonlabored. She is resting comfortably. Not using it as a muscle breathing. Eyes: Anicteric sclerae, moist conjunctiva, no lid-lag PERRLA ENMT: NC/AT Oropharynx clear, no erythema, exudates Neck: Supple, FROM, no masses, or JVD No carotid bruits No thyromegaly Lungs: C Normal respiratory effort, no accessory muscle use , minimal crackles in the lung bases bilaterally. Cardiovascular: Heart regular in rate and rhythm, No murmurs, gallops, or rubs No peripheral edema Abdominal: Soft Nontender, no guarding, rebound or rigidity Abdomen moving with respiration Normoactive bowel sounds No hepatomegaly, No splenomegaly No palpable mass No abdominal wall hernia noted Skin: Normal temperature, tone, texture, turgor No induration No subcutaneous nodules No rash, lesions No ulcers Extremities: Psychiatric:Alert and oriented to person, place and time Appropriate affect Intact judgement Neuro: Moves all extremities - Labs CBC & Chem 7: 03/13/21 09:01 03/13/21 09:01 Labs: Abnormal Lab Results - Last 24 Hours (Table) 03/13/21 03/13/21 03/13/21 Range/Units 09:01 09:01 09:01 WBC 13.50 H (4.50-10.00) X 10*3/uL RBC 3.74 L (4.10-5.20) X 10*6/uL Hgb 11.2 L (12.0-15.0) g/dL Hct 33.8 L (37.2-46.3) % MPV 9.2 L (9.5-12.2) fL Absolute Nucleated RBC 0.02 H (0.00-0.00) X 10*3/uL NRBC/100 WBC Diff 0.1 H (0.0-0.0) /100 WBCS Carbon Dioxide 19.6 L (20.0-27.5) mmol/L BUN/Creatinine Ratio 24.43 H (12.00-20.00) Ratio Glucose 141 H (70-110) mg/dL Procalcitonin 0.52 H (0.02-0.09) ng/mL Microbiology - Last 24 Hours (Table) 03/10/21 13:00 Blood Culture - Preliminary Blood No Growth after 72 hours 03/10/21 12:40 Blood Culture - Preliminary Blood No Growth after 72 hours 03/12/21 09:00 Gram Stain - Preliminary Sputum Sputum Culture - Preliminary Assessment and Plan Assessment: 1 acute hypoxic respiratory failure secondary to pneumonia. Patient currently on 2 L of oxygen by nasal cannula and she is clinically improving 2 acute bilateral pneumonia. The patient has diffuse bilateral ground glass pulmonary infiltrates. The patient tested negative for COVID 19. The patient has been vaccinated for COVID 19 and her presentation is not typical of COVID 19. Other viral pathogens need to be evaluated. Atypical bacterial infection a lso are possible. Acute inhalational injuries, smoking induced interstitial lung disease and connective tissue disease related interstitial lung disease is felt to be less likely. Acute hypersensitivity pneumonia, acute eosinophilic pneumonia is felt to be less likely 3 COPD 4 chronic smoking and the patient smokes one pack of status today 5 hepatitis B viral infection 6 history of liver cirrhosis, nonalcoholic related 7 hypertension 8 hyperlipidemia 9 chronic anxiety/depression 10 history of cervical cancer Plan The patient was seen and evaluated today Nearly back to her baseline and on room air Cleared for discharge from the pulmonary standpoint Complete a course of antibiotics Complete prednisone taper Follow-up in the office with Dr. Richardson in 1-2 weeks'
== END 2021-03-13 15:16 | disposition home or self-care (01) | DRG 193 ==
LOC: EC 10:09 → 5NMEDONC 13:18 → 4SSUR 15:34
PROVIDERS: ADMIT Internal Medicine; ATTEND Internal Medicine
DX: J18.9 Pneumonia, unspecified organism (principal); J96.01 Acute respiratory failure with hypoxia; G93.1 Anoxic brain damage, not elsewhere classified; J44.0 Chronic obstructive pulmonary disease with (acute) lower respiratory infection; B19.10 Unspecified viral hepatitis B without hepatic coma; Z71.6 Tobacco abuse counseling; Z20.822 Contact with and (suspected) exposure to COVID-19; I10 Essential (primary) hypertension; K70.30 Alcoholic cirrhosis of liver without ascites; R51.9 Headache, unspecified; E78.5 Hyperlipidemia, unspecified; M19.90 Unspecified osteoarthritis, unspecified site; F17.210 Nicotine dependence, cigarettes, uncomplicated; F31.9 Bipolar disorder, unspecified; F41.8 Other specified anxiety disorders; G89.29 Other chronic pain; J98.01 Acute bronchospasm; Z79.899 Other long term (current) drug therapy; Z85.41 Personal history of malignant neoplasm of cervix uteri; Z87.442 Personal history of urinary calculi; Z90.49 Acquired absence of other specified parts of digestive tract
CPT/HCPCS: 36415; 71045; 71275; 80048; 80053; 83605; 83615; 83735; 83880; 84145; 84484; 85025; 85027; 85379; 85610; 85730; 86140; 86738; 86769; 87040; 87070; 87205; 87449; 87502; 87634; 87635; 93005; 94640; 96361; 96365; 96366; 96367; 96372; 96375; 99285

== ENCOUNTER 2021-06-25 16:56 | Emergency (ER) | payer OTHER ==
[2021-06-25 17:10] VITALS: BP 158/92; PULSE 85; RESP 16; TEMP 99
--- NOTE | 2021-06-25 17:37 | XR ---
EXAMINATION TYPE: XR wrist complete RT DATE OF EXAM: 06/25/2021 5:25 PM INDICATION: Patient age:Female; 55 years old; Reason for study: fall pain; COMPARISON: None TECHNIQUE: 3 views of the right wrist. FINDINGS: Additional subtle line extending to the scaphoid could represent occult fracture. There is mild soft tissue swelling around the wrist. IMPRESSION: Subtle line through the scaphoid seen on one view only could represent nondisplaced scaphoid fracture . Correlate with point tenderness.
[2021-06-25] MEDS ORDERED: HYDROcodone/APAP 5-325MG 1 EACH TAB PO STA (18:24)
[2021-06-25] MEDS ORDERED: ACET/COD 300 MG/30 MG STARTER PACK 6 TAB BTL PO STA (19:19)
--- NOTE | 2021-06-25 19:19 | ED ---
Upper Extremity HPI - General Chief Complaint: Fall Stated Complaint: Fall-R wrist injury Time Seen by Provider: 06/25/21 18:18 Source: patient, RN notes reviewed Mode of arrival: ambulatory Limitations: no limitations - History of Present Illness Initial Comments: This is a 55-year-old female who presents to the emergency department for right wrist pain. She has a walking cast on the left leg, and was walking into [facility], tripped over her walking cast, and landed on her right wrist. She has since noticed swelling and increasing pain. Currently rates her pain an 8 out of 10. Denies any loss of sensation in the hands or fingers, or numbness/tingling. MD Complaint: Injury to:: right, wrist Onset/Timin -: days(s) Other Extremity Injury: Wrist: Right Other Injuries: none Severity scale (1-10): 8 - Related Data Home Medications Medication Instructions Recorded Confirmed ARIPiprazole [Abilify] 5 mg PO HS 12/03/13 03/10/21 Gabapentin [Neurontin] 800 mg PO QID 12/03/13 03/10/21 hydrOXYzine pamoate [Vistaril] 50 mg PO DAILY 12/03/13 03/10/21 Ezetimibe [Zetia] 10 mg PO DAILY 05/14/19 03/10/21 Venlafaxine HCl [Effexor XR] 150 mg PO DAILY 10/22/19 03/10/21 hydrOXYzine pamoate [Vistaril] 100 mg PO HS 10/22/19 03/10/21 lisinopriL [Zestril] 10 mg PO DAILY 10/22/19 03/10/21 HYDROcodone/APAP 10-325MG [[place] 1 tab PO TID PRN 03/10/21 03/10/21 10-325] hydroCHLOROthiazide [Hydrodiuril] 25 mg PO DAILY 03/10/21 03/10/21 Magnesium Oxide [Mag-Ox] 400 mg PO DAILY 06/25/21 06/25/21 Previous Rx's Medication Instructions Recorded HYDROcodone/APAP 5-325MG [[place] 1 tab PO Q8HR PRN 3 Days #9 tab 06/25/21 5-325] Allergies Allergy/AdvReac Type Severity Reaction Status Date / Time No Known Allergies Allergy Verified 06/25/21 19:08 Review of Systems ROS Statement: Those systems with pertinent positive or pertinent negative responses have been documented in the HPI. ROS Other: All systems not noted in ROS Statement are negative. Constitutional: Denies: fever, chills ENT: Denies: ear pain, throat pain Respiratory: Denies: cough, dyspnea Cardiovascular: Denies: chest pain, palpitations Gastrointestinal: Denies: abdominal pain, nausea, vomiting, diarrhea Genitourinary: Denies: urgency, dysuria Musculoskeletal: Reports: other (right wrist pain). Denies: back pain Skin: Denies: rash Neurological: Denies: headache Past Medical History Past Medical History: Cancer, Hyperlipidemia, Hypertension, Liver Disease, Osteoarthritis (OA) Additional Past Medical History / Comment(s): Hx of Hepatitis B, Non-Alcoholic Cirrhosis of liver, kidney stones, Cervical cancer. History of Any Multi-Drug Resistant Organisms: None Reported Past Surgical History: Cholecystectomy, Orthopedic Surgery, Tubal Ligation Additional Past Surgical History / Comment(s): Left shoulder surgery X4 with pins & screws, coloposcopy -CERVICAL, D&C. Past Anesthesia/Blood Transfusion Reactions: No Reported Reaction Past Psychological History: Anxiety, Bipolar, Depression Smoking Status: Current every day smoker Past Alcohol Use History: None Reported Past Drug Use History: Marijuana - Past Family History Mother Family Medical History: Cancer Additional Family Medical History / Comment(s): Colon, Bone Cancer. Father Family Medical History: Cancer Additional Family Medical History / Comment(s): Lung Cancer. General Exam Limitations: no limitations General appearance: alert, in no apparent distress Head exam: Present: atraumatic, normocephalic, normal inspection Respiratory exam: Present: normal lung sounds bilaterally. Absent: respiratory distress, wheezes, rales, rhonchi, stridor Cardiovascular Exam: Present: regular rate, normal rhythm, normal heart sounds. Absent: systolic murmur, diastolic murmur, rubs, gallop, clicks Extremities exam: Present: other (Diffuse swelling and tenderness of the right wrist and dorsal aspect of the right hand. Mild erythema and bruising.) Right Hand Wrist exam: Present: tenderness, swelling, ecchymosis. Absent: full ROM Vascular: Present: normal capillary refill. Absent: vascular compromise, Pallo, pulse deficit radial art, pulse deficit ulnar art Neurological exam: Present: alert, oriented X3, CN II-XII intact Psychiatric exam: Present: normal affect, normal mood Skin exam: Present: warm, dry, intact Course Vital Signs 06/25/21 17:07 Temperature 99 F Pulse Rate 85 Respiratory 16 Rate Blood Pressure 158/92 O2 Sat by Pulse 96 Oximetry Medical Decision Making - Medical Decision Making This is a 55-year-old female who presents to the emergency department for right wrist pain after a fall. X-ray revealed a scaphoid fracture. Patient given a [place] in the emergency department for pain relief, states that this made the pain less sharp. Thumb spica splint applied. Patient given information to follow up with Dr. Barboza, orthopedics, on Sunday or Sunday next week. Patient given a starter pack for Tylenol with codeine and a 3 day prescription for [place], as the patient is out of her current [place] prescription. Advised she use this sparingly and only take it at night until she knows how it affects her, as it may make her sleepy/groggy. Return precautions reviewed in depth, the patient is instructed to return to the emergency department if she develops symptoms including but not limited to, increasing pain, numbness/tingling in the hand or fingers, pallor of the extremity, or inability to move the extremity. Patient verbalized understanding. This case was discussed in detail with the attending ED physician. Presentation, findings, and treatment plan discussed in detail as well. - Radiology Data Radiology results: report reviewed, image reviewed Disposition Clinical Impression: Scaphoid fracture, wrist, closed Disposition: HOME SELF-CARE Instructions (If sedation given, give patient instructions): Splint Care (ED), Scaphoid Fracture (ED) Additional Instructions: Return to the emergency department if your pain worsens, your limb becomes cold, numb, red, or otherwise changes. Call and make an appointment with Dr. Barboza, orthopedics, for follow up on Sunday or Sunday next week. Prescriptions: HYDROcodone/APAP 5-325MG [[place] 5-325] 1 tab PO Q8HR PRN 3 Days #9 tab PRN Reason: Pain Is patient prescribed a controlled substance at d/c from ED?: Yes If prescribed controlled substance>3 days was MAPS reviewed?: Prescribed <3 Days Referrals: Nasim Lloyd MD [Primary Care Provider] - 1-2 days
== END 2021-06-25 19:54 | disposition home or self-care (01) ==
LOC: EC 16:56
DX: S62.002A Unspecified fracture of navicular [scaphoid] bone of left wrist, initial encounter for closed fracture (principal); F17.200 Nicotine dependence, unspecified, uncomplicated; I10 Essential (primary) hypertension; W19.XXXA Unspecified fall, initial encounter; Y93.01 Activity, walking, marching and hiking
CPT/HCPCS: 99283

== ENCOUNTER → 2021-06-28 | Outpatient (CLI) | payer OTHER ==
[2021-06-28 10:31] VITALS: BP 152/84; PULSE 98; RESP 17; TEMP 98.2
--- NOTE | 2021-06-28 11:19 | P.HPOB ---
History of Present Illness H&P Date: 06/28/21 Chief Complaint: The patient is here for her routine gynecologic exam and ma mmogram. This is a 55-year-old with an LMP of 2011. The patient is here to establish with this office. It has been about 15-20 years since her last pelvic exam. She is without gynecologic complaints and denies any postmenopausal bleeding. Review of Systems The patient's weight has been stable over the last year. She denies respiratory, cardiac, or G.I. problems. Past Medical History Past Medical History: Hyperlipidemia, Hypertension, Liver Disease, Osteoarthritis (OA) Additional Past Medical History / Comment(s): Hx of Hepatitis B, Non-Alcoholic Cirrhosis of liver, kidney stones. Thomas's syndrome. 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 She was treated for cervical dysplasia in 1989. History of Any Multi-Drug Resistant Organisms: None Reported Past Surgical History: Cholecystectomy, Orthopedic Surgery, Tubal Ligation Additional Past Surgical History / Comment(s): Left shoulder surgery X4 with pins & screws, coloposcopy 2016(next after 10yr).Treatment for cervical dysplasia, D&C. Past Anesthesia/Blood Transfusion Reactions: No Reported Reaction Past Psychological History: Anxiety, Bipolar, Depression Additional Psychological History / Comment(s): She is independent. She has a nebulizer. Smoking Status: Current every day smoker (1 pack per day) Past Alcohol Use History: None Reported Additional Past Alcohol Use History / Comment(s): STARTED SMOKING AT AGE 9, SMOKES 1 PPD. Past Drug Use History: Marijuana Additional Drug Use History / Comment(s): DAILY USE. Medical marijuana use. Additional History: She is and is not seeing anybody at this time. 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 - Past Family History Mother Family Medical History: Cancer Additional Family Medical History / Comment(s): Crohn's dz, Bone Cancer. Maternal grandmother had widespread cancer, maternal grandfather had an [place]. Father Family Medical History: Cancer Additional Family Medical History / Comment(s): Lung Cancer. Paternal grandmother had breast cancer. Medications and Allergies Home Medications Medication Instructions Recorded Confirmed Type ARIPiprazole [Abilify] 5 mg PO HS 12/03/13 06/28/21 History Gabapentin [Neurontin] 800 mg PO QID 12/03/13 06/28/21 History Ezetimibe [Zetia] 10 mg PO DAILY 05/14/19 06/28/21 History Venlafaxine HCl [Effexor XR] 150 mg PO DAILY 10/22/19 06/28/21 History hydrOXYzine pamoate [Vistaril] 100 mg PO HS 10/22/19 06/28/21 History lisinopriL [Zestril] 10 mg PO DAILY 10/22/19 06/28/21 History HYDROcodone/APAP 10-325MG [[place] 1 tab PO QID 03/10/21 06/28/21 History 10-325] hydroCHLOROthiazide [Hydrodiuril] 25 mg PO DAILY 03/10/21 06/28/21 History Magnesium Oxide [Mag-Ox] 400 mg PO DAILY 06/25/21 06/28/21 History Allergies Allergy/AdvReac Type Severity Reaction Status Date / Time No Known Allergies Allergy Verified 06/28/21 10:25 Exam Vital Signs Temp Pulse Resp BP Pulse Ox 06/28/21 10:28 98.2 F 98 17 152/84 98 Intake and Output 06/27/21 06/28/21 06/28/21 22:59 06:59 14:59 Other: Weight 76.204 kg Height 5 feet 0 inches, weight 168 pounds, BMI 32.8. This is a well-developed well-nourished white female who is alert and oriented times 3 in no acute distress. HEENT: Within normal limits. NECK: Supple without mass or thyromegaly. CHEST AND LUNGS: Clear to auscultation. HEART: Regular rate and rhythm. BREASTS: Are without mass or discharge. AXILLARY EXAM: Negative for adenopathy. BACK: Negative for CVA tenderness. ABDOMEN: Soft, nontender, without palpable masses. PELVIC EXAM: Normal external genitalia with minimal atrophy. Cervix and vagina appear normal minimal atrophy. There is no unusual discharge. There is no evidence of prolapse. The uterus is midposition, nongravid size and nontender. There are no palpable adnexal masses or tenderness. RECTAL EXAM: Rectovaginal exam is negative for mass or tenderness and is negative for occult blood. EXTREMITIES: Nontender. There is a cast on her right forearm and wrist. IMPRESSION: 1. 55-year-old menopausal female with normal gynecologic exam. PLAN: 1. Pap smear coated test was performed. 2. Self breast awareness was discussed with the patient. We have also discussed symptoms associated with inflammatory breast cancer. 3. Screening mammogram will be done today. 4. Osteoporosis prevention was discussed. I have stressed the importance of adequate calcium, vitamin D and regular exercise. Recommended amounts of calcium and vitamin D were also discussed. 5. She has completed her Covid vaccination series and did did receive her booster. 6. She was advised to return in one year for her annual well woman exam.
--- NOTE | 2021-06-30 13:17 | MM ---
Reason for exam: screening (asymptomatic). Last mammogram was performed 2 years and 11 months ago. History: Patient is postmenopausal and history of other cancer. Family history of breast cancer in paternal grandmother at age 58 and breast cancer in maternal grandmother at age 65. Benign MG stereo VAD BX RT of the right breast, January 10, 2018. Taking estrogen for 6 years beginning at age 49. Physical Findings: A clinical breast exam by your physician is recommended on an annual basis and results should be correlated with mammographic findings. MG Screening Mammo w CAD Bilateral CC and MLO view(s) were taken. Prior study comparison: July 15, 2018, right breast MG diagnostic mammo RT w CAD. December 13, 2017, right breast MG work up mamm w CAD RT. Previous mammotome biopsy in the right breast. No significant changes when compared with prior studies. ASSESSMENT: Benign, BI-RAD 2 RECOMMENDATION: Routine screening mammogram of both breasts in 1 year.
== END | disposition home or self-care (01) ==
LOC: WWCWWP 10:13
PROVIDERS: ATTEND Obstetrics & Gynecology
DX: Z12.31 Encounter for screening mammogram for malignant neoplasm of breast (principal)
CPT/HCPCS: 77067

== ENCOUNTER → 2021-07-04 | Outpatient (CLI) | payer OTHER ==
--- NOTE | 2021-07-04 09:47 | CT ---
EXAMINATION TYPE: CT hand RT wo con DATE OF EXAM: 07/04/2021 COMPARISON: X-ray dated 06/30/2021 HISTORY: Right hand injury [address] DLP: 291 mGycm Automated exposure control for dose reduction was used. TECHNIQUE: Multiplanar CT scan of the right hand without IV contrast sedation. 3-D images were genera elvie on an independent workstation and reviewed. FINDINGS: No definite acute fracture line identified. Degenerative changes of the second distal interphalangeal joint with tiny osteophytosis. Milder scattered degenerative changes of a few interphalangeal joints . Negative ulnar variance. No other significant bony or articular abnormality identified. IMPRESSION: No definite acute fracture line identified. Incidental findings as described above. Further bone scan or MRI assessment can be considered if clinically required.
== END | disposition home or self-care (01) ==
LOC: RADCTMAIN 08:15
PROVIDERS: ATTEND Orthopaedic Surgery Hand Surgery
DX: S62.001A Unspecified fracture of navicular [scaphoid] bone of right wrist, initial encounter for closed fracture (principal); X58.XXXA Exposure to other specified factors, initial encounter

== ENCOUNTER 2022-12-25 21:01 | Observation (INO) | payer OTHER ==
[2022-12-25 21:23] LABS: Glucose,Whole Blood 168 mg/dL (70-110)
[2022-12-25] MEDS ORDERED: SODIUM CHLORIDE 0.9% 1,000 ML IV ONE (21:32)
[2022-12-25] MEDS ORDERED: ONDANSETRON 4 MG/2 ML VIAL IVP STA (21:33)
[2022-12-25 21:55] LABS: Basophils # (A) 0.1 k/uL (0-0.2); Basophils % (A) 1 %; Eosinophils # (A) 0.4 k/uL (0-0.7); Eosinophils % (A) 2 %; Lymphocytes # (A) 5.7 k/uL (1.0-4.8); Lymphocytes % (A) 31 %; MCH 31.1 pg (25.0-35.0); MCHC 33.9 g/dL (31.0-37.0); MCV 91.5 fL (80.0-100.0); Mean Platelet Volume 7.4; Monocytes # (A) 0.8 k/uL (0-1.0); Monocytes % (A) 5 %; Neutrophils % (A) 60 %; Platelet Count 340 k/uL (150-450); RBC 5.14 m/uL (3.80-5.40); RDW 14.1 % (11.5-15.5); WBC 18.4 k/uL (3.8-10.6)
[2022-12-25 22:06] LABS: ALT 67 U/L (4-34); AST 48 U/L (14-36); African American GFR (CKD) 50 (>60 ml/min/1.73 sqM); Alcohol <10 mg/dL; Alkaline Phosphatase 133 U/L (38-126); Anion Gap 13 mmol/L; Blood Urea Nitrogen 10 mg/dL (7-17); Calcium 9.5 mg/dL (8.4-10.2); Carbon Dioxide 20 mmol/L (22-30); Chloride 104 mmol/L (98-107); Glucose 163 mg/dL (74-99); Lipase 96 U/L (23-300); Magnesium 1.9 mg/dL (1.6-2.3); Non-African American GFR(CKD) 44 (>60 ml/min/1.73 sqM); Potassium 3.4 mmol/L (3.5-5.1); Sodium 137 mmol/L (137-145); Total Bilirubin 0.5 mg/dL (0.2-1.3); Total Protein 6.7 g/dL (6.3-8.2)
[2022-12-25 22:14] LABS: NT-Pro-B-Type Natriuretic Pept 75 pg/mL
[2022-12-25 22:17] LABS: Partial Thromboplastin Time 22.3 sec (22.0-30.0); Prothrombin Time 10.5 sec (9.0-12.0)
--- NOTE | 2022-12-25 23:09 | CT ---
EXAMINATION TYPE: CT abdomen pelvis w con CT DLP: 1157.8 mGycm, Automated exposure control for dose reduction was used. DATE OF EXAM: 12/25/2022 10:11 PM COMPARISON: CT abdomen pelvis most recent from 02/25/2020. CLINICAL INDICATION:Female, 57 years old with history of Acute abdominal pain; Acute abdominal pain. TECHNIQUE: Axial CT of the abdomen and pelvis. Sagittal and coronal reformats were created on a [employer] workstation. Contrast used:100 ml mL of Isovue 300 with IV Contrast, (none if empty) Oral contrast used: without Oral Contrast (none if empty) FINDINGS: LOWER CHEST: atelectasis and a few air cysts in the lung bases. ABDOMEN LIVER: Diffusely hypoattenuating parenchyma. GALLBLADDER AND BILE DUCTS: The gallbladder is surgically absent. PANCREAS: Unremarkable. SPLEEN: Unremarkable. ADRENAL GLANDS: Unremarkable. KIDNEYS AND URETERS: No evidence of hydronephrosis or renal calculus. The ureters are unremarkable. PELVIS BLADDER: Unremarkable REPRODUCTIVE: Unremarkable. ABDOMEN & PELVIS STOMACH AND BOWEL: No evidence of bowel obstruction. The appendix is normal. Nondistention of the trudy ority of the colon with possible mild Fat stranding changes in the sigmoid colon with progression of the vasa recta. PERITONEUM/RETROPERITONEUM: No evidence of pneumoperitoneum or free fluid. VASCULATURE: Mild atherosclerotic calcifications are present throughout the abdominal aorta and its b ranches. No evidence of aortic aneurysm. MUSCULOSKELETAL: No acute osseous abnormalities. Mild disc degeneration changes are present throughou t the thoracolumbar spine. LYMPH NODES: No gross evidence for lymphadenopathy. SOFT TISSUE/ABDOMINAL WALL: Fat-containing umbilical hernia. IMPRESSION: 1. No definitive acute process. There is nondistention of the sigmoid colon with possible wall thick ening correlate for colitis. 2. Hepatic steatosis. 3. Normal appendix, no obstructive uropathy or renal calculus.
--- NOTE | 2022-12-25 23:11 | XR ---
EXAMINATION TYPE: XR chest 2V DATE OF EXAM: 12/25/2022 10:32 PM CLINICAL INDICATION:Female, 57 years old with history of CP; COMPARISON: Chest radiographs from 03/13/2021 TECHNIQUE: XR chest 2V Frontal and lateral views of the chest. FINDINGS: Lungs/Pleura: There is no evidence of pleural effusion, focal consolidation, or pneumothorax. Pulmonary vascularity: Unremarkable. Heart/mediastinum: Cardiomediastinal silhouette is unremarkable. Musculoskeletal: No acute osseous pathology. Other findings: None IMPRESSION: Low lung volumes with a generalized hazy appearance which is similar to prior. Findings suggestive of atelectasis.
--- NOTE | 2022-12-25 23:47 | ED ---
General Adult HPI - General Chief complaint: Syncope Stated complaint: DIZZINESS Time Seen by Provider: 12/25/22 21:11 Source: patient Mode of arrival: EMS Limitations: no limitations - History of Present Illness Initial comments: This is a 57-year-old female who was brought into the emergency department via EMS for a syncopal episode and weakness. It was reported by the patient's was at the bedside on arrival stated that the patient looked altered when he looked at her while on the couch. The patient was noted to be having a "blank stare" and then had an episode where her eyes rolled back. The patient stated that the patient was extremity diaphoretic and due to the patient's inability to answer any of his questions, in addition to 2 ounces of vomiting, EMS was called. On arrival, the patient was noted to be hypotensive as well as diaphoretic. The patient herself complained of right lower quadrant abdominal pain as well as nausea and vomiting. The patient was reportedly normal until the episode at home just prior to arrival. The patient's did state that the only abnormal event that occurred during the day today was that the patient did donate plasma which she has not done in several years. The patient otherwise was able to answer questions appropriately but did appear lethargic. - Related Data Home Medications Medication Instructions Recorded Confirmed ARIPiprazole [Abilify] 5 mg PO HS 12/03/13 06/28/21 Gabapentin [Neurontin] 800 mg PO QID 12/03/13 06/28/21 Ezetimibe [Zetia] 10 mg PO DAILY 05/14/19 06/28/21 Venlafaxine HCl [Effexor XR] 150 mg PO DAILY 10/22/19 06/28/21 hydrOXYzine pamoate [Vistaril] 100 mg PO HS 10/22/19 06/28/21 lisinopriL [Zestril] 10 mg PO DAILY 10/22/19 06/28/21 HYDROcodone/APAP 10-325MG [[place] 1 tab PO QID 03/10/21 06/28/21 10-325] hydroCHLOROthiazide [Hydrodiuril] 25 mg PO DAILY 03/10/21 06/28/21 Magnesium Oxide [Mag-Ox] 400 mg PO DAILY 06/25/21 06/28/21 Allergies Allergy/AdvReac Type Severity Reaction Status Date / Time No Known Allergies Allergy Verified 06/28/21 10:25 Review of Systems ROS Statement: Those systems with pertinent positive or pertinent negative responses have been documented in the HPI. ROS Other: All systems not noted in ROS Statement are negative. Past Medical History Past Medical History: Hyperlipidemia, Hypertension, Liver Disease, Osteoarthritis (OA) Additional Past Medical History / Comment(s): Hx of Hepatitis B, Non-Alcoholic Cirrhosis of liver, kidney stones. Thomas's syndrome. 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 She was treated for cervical dysplasia in 1989. History of Any Multi-Drug Resistant Organisms: None Reported Past Surgical History: Cholecystectomy, Orthopedic Surgery, Tubal Ligation Additional Past Surgical History / Comment(s): Left shoulder surgery X4 with pins & screws, coloposcopy 2016(next after 10yr).Treatment for cervical dysplasia, D&C. Past Anesthesia/Blood Transfusion Reactions: No Reported Reaction Past Psychological History: Anxiety, Bipolar, Depression Smoking Status: Current every day smoker Past Alcohol Use History: None Reported Past Drug Use History: Marijuana - Past Family History Mother Family Medical History: Cancer Additional Family Medical History / Comment(s): Crohn's dz, Bone Cancer. Maternal grandmother had widespread cancer, maternal grandfather had an MA. Father Family Medical History: Cancer Additional Family Medical History / Comment(s): Lung Cancer. Paternal grandmother had breast cancer. General Exam Limitations: no limitations General appearance: alert, in no apparent distress, lethargic Head exam: Present: atraumatic, normocephalic, normal inspection Eye exam: Present: normal appearance, PERRL Pupils: Present: normal accommodation ENT exam: Present: normal exam, normal oropharynx, mucous membranes moist Neck exam: Present: normal inspection, full ROM Respiratory exam: Present: normal lung sounds bilaterally. Absent: respiratory distress, wheezes Cardiovascular Exam: Present: normal rhythm, bradycardia GI/Abdominal exam: Present: soft, tenderness (Mild TTP over the RLQ), normal bowel sounds Extremities exam: Present: normal inspection, full ROM Back exam: Present: normal inspection, full ROM Neurological exam: Present: alert, oriented X3, CN II-XII intact Psychiatric exam: Present: normal affect, normal mood Skin exam: Present: warm, dry Course Vital Signs 12/25/22 12/25/22 12/26/22 21:09 23:11 00:26 Temperature 97.6 F Pulse Rate 54 L 61 67 Respiratory 18 19 17 Rate Blood Pressure 67/30 100/66 83/61 O2 Sat by Pulse 94 L 100 94 L Oximetry EKG Findings - EKG Comments: EKG Findings:: An EKG was obtained and was interpreted by myself showing a rate of 59, NJ interval 132, QRS duration of 91 and QTC of 420. This EKG showed a sinus bradycardia with no ST segment elevation or depression noted. Medical Decision Making - Medical Decision Making Was pt. sent in by a medical professional or institution (, PA, QUI[employer] SKINNER, urgent care, hospital, or half-way...) When possible be specific @ -No Did you speak to anyone other than the patient for history (EMS, parent, family, police, friend...)? What history was obtained from this source @ -Yes, patient's was at the bedside and did confirm that the patient h ad a likely syncopal episode at home and was diaphoretic when EMS was called. He did report that the patient is back to baseline after fluid resuscitation as well as medications emergency department. Did you review nursing and triage notes (agree or disagree)? Why? @ -I reviewed and agree with nursing and triage notes Were old charts reviewed (outside hosp., previous admission, EMS record, old EKG, old radiological studies, urgent care reports/EKG's, half-way records)? Report findings @ -No old charts were reviewed Differential Diagnosis (chest pain, altered mental status, abdominal pain women, abdominal pain men, vaginal bleeding, weakness, fever, dyspnea, syncope, headache, dizziness, GI bleed, back pain, seizure, CVA, palpatations, mental health)? @ -Appendicitis, sepsis, septic shock, UTI EKG interpreted by me (3pts min.). @ -As above X-rays interpreted by me (1pt min.). @ -Chest x-ray was obtained and was interpreted by myself showing low lung volumes with a generalized hazy appearance similar to prior. These findings are suggestive atelectasis. CT interpreted by me (1pt min.). @ -CT abdomen and pelvis with contrast was obtained and was interpreted by myself showing no definitive acute process. There is not distention of the sigmoid colon with possible wall thickening to correlate for colitis. There is hepatic steatosis. There is normal appendix. U/S interpreted by me (1pt. min.). @ -None done What testing was considered but not performed or refused? (CT, X-rays, U/S, labs)? Why? @ -None What meds were considered but not given or refused? Why? @ -None Did you discuss the management of the patient with other professionals (professionals i.e. Dr., PA, Q[employer] SKINNER, lab, RT, psych nurse, transition social worker, cake washer, teacher, community service patrol officer, case preparer and liner)? Give summary @ -Yes, Dr. Elias was contacted regarding patient's admission. Was smoking cessation discussed for >3mins.? @ -No Was critical care preformed (if so, how long)? @ -Yes, see above Were there social determinants of health that impacted care today? How? (Homelessness, low income, unemployed, alcoholism, drug addiction, transportat ion, low edu. Level, literacy, decrease access to med. care, long-term, rehab)? @ -No Was there de-escalation of care discussed even if they declined (Discuss DNR or withdrawal of care, Hospice)? DNR status @ -No What co-morbidities impacted this encounter? (DM, HTN, Smoking, COPD, CAD, Cancer, CVA, ARF, Chemo, Hep., AIDS, mental health diagnosis, sleep apnea, morbid obesity)? @ -Possible reported depression and anxiety per the . Was patient admitted / discharged? Hospital course, mention meds given and route, prescriptions, significant lab abnormalities, going to OR and other pertinent info. @ -The patient was seen and evaluated initially on arrival. On evaluation, the patient was lethargic and hypotensive. The patient also found to be bradycardic. The patient was given fluids and Zofran initially on arrival. Workup was obtained and did show an elevated white blood cell count of 18 as well as an elevated lactic acid. The patient's urine was negative for a UTI as well as imaging including chest x-ray and CT scans of the abdomen and pelvis which were negative for any acute findings. The patient on reevaluation did have improvement of her symptoms after the first liter of fluid but stated that she had continued minor lightheadedness. The patient then had vital signs rechecked and had decreasing blood pressure once again and a second liter of normal saline was given. The accepting physician was contacted regarding patient admission and he did suggest treating the patient for possible septic shock and I did agree with this. Sepsis workup was considered and was started at 0050. The patient did receive a total of 30 mL per KG of fluids as well as blood cultures and antibiotics. The patient and her were told of the plan to admit the patient and they were agreeable. The patient will be admitted for further workup and evaluation of possible septic shock versus sick sinus syndrome. Undiagnosed new problem with uncertain prognosis? @ -No Drug Therapy requiring intensive monitoring for toxicity (Heparin, Nitro, Insulin, Cardizem)? @ -No Were any procedures done? @ -No Diagnosis/symptom? @ -Syncope, possible septic shock versus sick sinus syndrome Acute, or Chronic, or Acute on Chronic? @ -Acute Uncomplicated (without systemic symptoms) or Complicated (systemic symptoms)? @ -Complicated Side effects of treatment? @ -No Exacerbation, Progression, or Severe Exacerbation? @ -No Poses a threat to life or bodily function? How? (Chest pain, USA, MA, pneumonia, PE, COPD, DKA, ARF, appy, cholecystitis, CVA, Diverticulitis, Homicidal, Suicidal, threat to staff... and all critical care pts) @ -Yes, continued possible septic shock in lead to end organ damage and possible . - Lab Data Result diagrams: 12/25/22 21:18 12/25/22 21:18 Lab Results 12/25/22 12/25/22 12/25/22 Range/Units 21:18 21:18 21:18 WBC 18.4 H (3.8-10.6) k/uL RBC 5.14 (3.80-5.40) m/uL Hgb 16.0 (11.4-16.0) gm/dL Hct 47.0 H (34.0-46.0) % MCV 91.5 (80.0-100.0) fL MCH 31.1 (25.0-35.0) pg MCHC 33.9 (31.0-37.0) g/dL RDW 14.1 (11.5-15.5) % Plt Count 340 (150-450) k/uL MPV 7.4 Neutrophils % 60 % Lymphocytes % 31 % Monocytes % 5 % Eosinophils % 2 % Basophils % 1 % Neutrophils # 11.0 H (1.3-7.7) k/uL Lymphocytes # 5.7 H (1.0-4.8) k/uL Monocytes # 0.8 (0-1.0) k/uL Eosinophils # 0.4 (0-0.7) k/uL Basophils # 0.1 (0-0.2) k/uL Manual Slide Review Performed PT (9.0-12.0) sec INR (<1.2) APTT (22.0-30.0) sec Sodium 137 (137-145) mmol/L Potassium 3.4 L (3.5-5.1) mmol/L Chloride 104 (98-107) mmol/L Carbon Dioxide 20 L (22-30) mmol/L Anion Gap 13 mmol/L BUN 10 (7-17) mg/dL Creatinine 1.35 H (0.52-1.04) mg/dL Est GFR (CKD-EPI)AfAm 50 (>60 ml/min/1.73 sqM) Est GFR (CKD-EPI)NonAf 44 (>60 ml/min/1.73 sqM) Glucose 163 H (74-99) mg/dL POC Glucose (mg/dL) (70-110) mg/dL POC Glu Supervisor Transferring And Boxing ID Lactic Ac Sepsis Rflx Plasma Lactic Acid Wayne (0.7-2.0) mmol/L Calcium 9.5 (8.4-10.2) mg/dL Magnesium 1.9 (1.6-2.3) mg/dL Total Bilirubin 0.5 (0.2-1.3) mg/dL AST 48 H (14-36) U/L ALT 67 H (4-34) U/L Alkaline Phosphatase 133 H (38-126) U/L Troponin I <0.012 (0.000-0.034) ng/mL NT-Pro-B Natriuret Pep 75 pg/mL Total Protein 6.7 (6.3-8.2) g/dL Albumin 4.0 (3.5-5.0) g/dL Lipase 96 (23-300) U/L Urine Color Urine Appearance (Clear) Urine pH (5.0-8.0) Ur Specific Steele (1.001-1.035) Urine Protein (Negative) Urine Glucose (UA) (Negative) Urine Ketones (Negative) Urine Blood (Negative) Urine Nitrite (Negative) Urine Bilirubin (Negative) Urine Urobilinogen (<2.0) mg/dL Ur Leukocyte Esterase (Negative) Urine RBC (0-5) /hpf Urine WBC (0-5) /hpf Ur Squamous Epith Cells (0-4) /hpf Urine Bacteria (None) /hpf Hyaline Casts (0-2) /lpf Urine Mucus (None) /hpf Serum Alcohol <10 mg/dL 12/25/22 12/25/22 12/25/22 Range/Units 21:18 21:18 21:21 WBC (3.8-10.6) k/uL RBC (3.80-5.40) m/uL Hgb (11.4-16.0) gm/dL Hct (34.0-46.0) % MCV (80.0-100.0) fL MCH (25.0-35.0) pg MCHC (31.0-37.0) g/dL RDW (11.5-15.5) % Plt Count (150-450) k/uL MPV Neutrophils % % Lymphocytes % % Monocytes % % Eosinophils % % Basophils % % Neutrophils # (1.3-7.7) k/uL Lymphocytes # (1.0-4.8) k/uL Monocytes # (0-1.0) k/uL Eosinophils # (0-0.7) k/uL Basophils # (0-0.2) k/uL Manual Slide Review PT 10.5 (9.0-12.0) sec INR 1.0 (<1.2) APTT 22.3 (22.0-30.0) sec Sodium (137-145) mmol/L Potassium (3.5-5.1) mmol/L Chloride (98-107) mmol/L Carbon Dioxide (22-30) mmol/L Anion Gap mmol/L BUN (7-17) mg/dL Creatinine (0.52-1.04) mg/dL Est GFR (CKD-EPI)AfAm (>60 ml/min/1.73 sqM) Est GFR (CKD-EPI)NonAf (>60 ml/min/1.73 sqM) Glucose (74-99) mg/dL POC Glucose (mg/dL) 168 H (70-110) mg/dL POC Glu Supervisor Transferring And Boxing ID Nathan Ramos Lactic Ac Sepsis Rflx Plasma Lactic Acid Wayne 3.4 H* (0.7-2.0) mmol/L Calcium (8.4-10.2) mg/dL Magnesium (1.6-2.3) mg/dL Total Bilirubin (0.2-1.3) mg/dL AST (14-36) U/L ALT (4-34) U/L Alkaline Phosphatase (38-126) U/L Troponin I (0.000-0.034) ng/mL NT-Pro-B Natriuret Pep pg/mL Total Protein (6.3-8.2) g/dL Albumin (3.5-5.0) g/dL Lipase (23-300) U/L Urine Color Urine Appearance (Clear) Urine pH (5.0-8.0) Ur Specific Steele (1.001-1.035) Urine Protein (Negative) Urine Glucose (UA) (Negative) Urine Ketones (Negative) Urine Blood (Negative) Urine Nitrite (Negative) Urine Bilirubin (Negative) Urine Urobilinogen (<2.0) mg/dL Ur Leukocyte Esterase (Negative) Urine RBC (0-5) /hpf Urine WBC (0-5) /hpf Ur Squamous Epith Cells (0-4) /hpf Urine Bacteria (None) /hpf Hyaline Casts (0-2) /lpf Urine Mucus (None) /hpf Serum Alcohol mg/dL 12/25/22 12/25/22 Range/Units 22:27 23:13 WBC (3.8-10.6) k/uL RBC (3.80-5.40) m/uL Hgb (11.4-16.0) gm/dL Hct (34.0-46.0) % MCV (80.0-100.0) fL MCH (25.0-35.0) pg MCHC (31.0-37.0) g/dL RDW (11.5-15.5) % Plt Count (150-450) k/uL MPV Neutrophils % % Lymphocytes % % Monocytes % % Eosinophils % % Basophils % % Neutrophils # (1.3-7.7) k/uL Lymphocytes # (1.0-4.8) k/uL Monocytes # (0-1.0) k/uL Eosinophils # (0-0.7) k/uL Basophils # (0-0.2) k/uL Manual Slide Review PT (9.0-12.0) sec INR (<1.2) APTT (22.0-30.0) sec Sodium (137-145) mmol/L Potassium (3.5-5.1) mmol/L Chloride (98-107) mmol/L Carbon Dioxide (22-30) mmol/L Anion Gap mmol/L BUN (7-17) mg/dL Creatinine (0.52-1.04) mg/dL Est GFR (CKD-EPI)AfAm (>60 ml/min/1.73 sqM) Est GFR (CKD-EPI)NonAf (>60 ml/min/1.73 sqM) Glucose (74-99) mg/dL POC Glucose (mg/dL) (70-110) mg/dL POC Glu Supervisor Transferring And Boxing ID Lactic Ac Sepsis Rflx Y Plasma Lactic Acid Wayne (0.7-2.0) mmol/L Calcium (8.4-10.2) mg/dL Magnesium (1.6-2.3) mg/dL Total Bilirubin (0.2-1.3) mg/dL AST (14-36) U/L ALT (4-34) U/L Alkaline Phosphatase (38-126) U/L Troponin I (0.000-0.034) ng/mL NT-Pro-B Natriuret Pep pg/mL Total Protein (6.3-8.2) g/dL Albumin (3.5-5.0) g/dL Lipase (23-300) U/L Urine Color Colorless Urine Appearance Clear (Clear) Urine pH 8.0 (5.0-8.0) Ur Specific Steele 1.030 (1.001-1.035) Urine Protein 1+ H (Negative) Urine Glucose (UA) Trace H (Negative) Urine Ketones Negative (Negative) Urine Blood Negative (Negative) Urine Nitrite Negative (Negative) Urine Bilirubin Negative (Negative) Urine Urobilinogen <2.0 (<2.0) mg/dL Ur Leukocyte Esterase Negative (Negative) Urine RBC 1 (0-5) /hpf Urine WBC 1 (0-5) /hpf Ur Squamous Epith Cells 5 H (0-4) /hpf Urine Bacteria Rare H (None) /hpf Hyaline Casts 4 H (0-2) /lpf Urine Mucus Rare H (None) /hpf Serum Alcohol mg/dL Disposition Clinical Impression: Syncope, Septic shock, Sick sinus syndrome Disposition: ADMITTED IP TO THIS [facility] Condition: Stable Is patient prescribed a controlled substance at d/c from ED?: No Referrals: Nasim Lloyd MD [REFERRING] - 1-2 days Time of Disposition: 00:30 Decision to Admit Reason: Admit from EC Decision Date: 12/26/22 Decision Time: 00:30
[2022-12-26 00:01] LABS: Appearance,Urine Clear (Clear); Bacteria,Urine Rare /hpf; Bilirubin,Urine Negative (Negative); Blood,Urine Negative (Negative); Color,Urine Colorless; Glucose,Urine (UA) Trace (Negative); Hyaline Casts,Urine 4 /lpf (0-2); Ketones,Urine Negative (Negative); Leukocyte Esterase,Urine Negative (Negative); Mucus,Urine Rare /hpf; Nitrite,Urine Negative (Negative); Protein,Urine 1+ (Negative); RBC,Urine 1 /hpf (0-5); Squamous Epithelial Cell,Urine 5 /hpf (0-4); Urobilinogen,Urine <2.0 mg/dL (<2.0); WBC,Urine 1 /hpf (0-5)
[2022-12-26] MEDS ORDERED: SODIUM CHLORIDE 0.9% 1,000 ML IV ONE (00:26)
[2022-12-26] MEDS ORDERED: VANCOMYCIN IV PER PHARMACY 1 EACH MISC MISCELLANE PRN (00:54)
[2022-12-26] MEDS ORDERED: VANCOMYCIN 1,500 MG in SODIUM CHLORIDE 0.9% 500 ML 500 ML IVPB STA (00:56)
[2022-12-26] MEDS ORDERED: NALOXONE 0.4 MG/ML 1 ML VIAL IV PRN (00:56)
[2022-12-26] MEDS: SODIUM CHLORIDE 0.9% 500 ML 500 ML IV SCH ×3 (01:17→07:05)
[2022-12-26] MEDS: PIPERACILLIN-TAZOBACTAM 3.375 GM in SODIUM CHLORIDE 0.9% 100 ML IVPB STA ×2 (01:18→01:36)
[2022-12-26] MEDS ORDERED: POTASSIUM CHLORIDE ER 20 MEQ TAB.ER PO STA (04:50)
--- NOTE | 2022-12-26 04:50 | P.HPIM ---
History of Present Illness H&P Date: 12/26/22 Patient is a 57-year-old female with a PMH of hypertension and hyperlipidemia who presents to the emergency room with complaints of syncopal episode and generalized weakness. The history was supplemented by the patient's at the bedside. Patient reports that she had donated plasma this morning and did chores around the house and could not eat or drink as much as she normally does. They were both sitting on the couch when the noticed that she appeared to have a blank stare. When he restarted her, he noted that she was very diaphoretic. She subsequently became responsive after a few seconds but then had 2 episodes of vomiting. The called EMS who upon arrival found the patient to be hypotensive and diaphoretic. The patient denied experiencing any pain. She reports having donated plasma several times over the past 20 years but notes that this was her first time in the past 2 years. She denied experiencing a headache, unilateral weakness, numbness, or tingling. Also denied speech impairment or visual impairments. She does not recall the episode. Denied experiencing urinary or bowel incontinence. In the emergency room, CT abdomen and pelvis was unremarkable with chest x-ray also unremarkable. EKG revealed sinus bradycardia at 59 bpm with T-wave inve rsion in leads V2 to V6. Laboratory evaluation was remarkable for leukocytosis of 18.4, troponin less than 0.012, lactic acid 3.4, and potassium 3.4. In the emergency room upon arrival, the patient's BP was 67/30 with pulse 54, respiratory rate 18, SpO2 94% on room air, and temperature 97.6F. ED documentation reviewed and case discussed with ED provider. Review of systems: Pertinent positives and negatives as discussed in HPI, a complete review of systems was performed and all other systems are negative. Physical examination: Vital signs reviewed General: non toxic, no distress, appears at stated age, normal weight Derm: no unusual rashes/lesions, warm Head: atraumatic, normocephalic, symmetric Eyes: EOMI, no lid lag, anicteric sclera, pupils equal round reactive to light ENT: Nose and ears atraumatic Neck: No cervical lymphadenopathy, trachea midline, supple Mouth: no lip lesion, mucus membranes moist Cardiovascular: S1S2 reg, no murmur, positive dorsalis pedis pulse bilateral, no edema Lungs: CTA bilateral, no rhonchi, no rales, no accessory muscle use Abdominal: soft, nontender to palpation, no guarding Ext: muscle strength 4 out of 5 in all 4 extremities grossly, no gross muscle atrophy, no contractures, Neuro: CN II-XI grossly intact, no gross focal neuro deficits Psych: Alert, oriented, appropriate affect Assessment: Hypotension and bradycardia, shock of unclear etiology Lactic acidosis Kidney injury, acute versus chronic Leukocytosis Hypokalemia Imaging: CT abdomen and pelvis was unremarkable with chest x-ray also unremarkable. EKG revealed sinus bradycardia at 59 bpm with T-wave inversion in leads V2 to V6. Data Review: Laboratory evaluation was remarkable for leukocytosis of 18.4, troponin less than 0.012, lactic acid 3.4, and potassium 3.4. In the emergency room upon arrival, the patient's BP was 67/30 with pulse 54, respiratory rate 18, SpO2 94% on room air, and temperature 97.6F. Plan: S/p 2 L NS bolus C/w NS 150 mL/hr C/w broad spectrum antibiotics vancomycin and Zosyn or now pending blood cultures Follow-up blood cultures Cardiac monitoring Resume home meds once reconciled DVT prophylaxis: Lovenox The patient is admitted with an anticipated greater than 2 midnight stay for evaluation of hypotension CODE STATUS: Full Code Discussed with: Patient Anticipated discharge place: Home Past Medical History Past Medical History: Hyperlipidemia, Hypertension, Liver Disease, Osteoarthritis (OA) Additional Past Medical History / Comment(s): Hx of Hepatitis B, Non-Alcoholic Cirrhosis of liver, kidney stones. Thomas's syndrome. 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 She was treated for cervical dysplasia in 1989. History of Any Multi-Drug Resistant Organisms: None Reported Past Surgical History: Cholecystectomy, Orthopedic Surgery, Tubal Ligation Additional Past Surgical History / Comment(s): Left shoulder surgery X4 with pins & screws, coloposcopy 2016(next after 10yr).Treatment for cervical dysplasia, D&C. Past Anesthesia/Blood Transfusion Reactions: No Reported Reaction Past Psychological History: Anxiety, Bipolar, Depression Smoking Status: Current every day smoker Past Alcohol Use History: None Reported Past Drug Use History: Marijuana - Past Family History Mother Family Medical History: Cancer Additional Family Medical History / Comment(s): Crohn's dz, Bone Cancer. Maternal grandmother had widespread cancer, maternal grandfather had an AL. Father Family Medical History: Cancer Additional Family Medical History / Comment(s): Lung Cancer. Paternal grandmother had breast cancer. Medications and Allergies Home Medications Medication Instructions Recorded Confirmed Type ARIPiprazole [Abilify] 5 mg PO HS 12/03/13 06/28/21 History Gabapentin [Neurontin] 800 mg PO QID 12/03/13 06/28/21 History Ezetimibe [Zetia] 10 mg PO DAILY 05/14/19 06/28/21 History Venlafaxine HCl [Effexor XR] 150 mg PO DAILY 10/22/19 06/28/21 History hydrOXYzine pamoate [Vistaril] 100 mg PO HS 10/22/19 06/28/21 History lisinopriL [Zestril] 10 mg PO DAILY 10/22/19 06/28/21 History HYDROcodone/APAP 10-325MG [[place] 1 tab PO QID 03/10/21 06/28/21 History 10-325] hydroCHLOROthiazide [Hydrodiuril] 25 mg PO DAILY 03/10/21 06/28/21 History Magnesium Oxide [Mag-Ox] 400 mg PO DAILY 06/25/21 06/28/21 History Allergies Allergy/AdvReac Type Severity Reaction Status Date / Time No Known Allergies Allergy Verified 06/28/21 10:25 Physical Exam Vitals: Vital Signs Temp Pulse Resp BP Pulse Ox 12/26/22 00:26 67 17 83/61 94 L 12/25/22 23:11 61 19 100/66 100 12/25/22 21:09 97.6 F 54 L 18 67/30 94 L Intake and Output 12/25/22 12/25/22 12/26/22 14:59 22:59 06:59 Other: Weight 80.739 kg Results CBC & Chem 7: 12/25/22 21:18 12/25/22 21:18 Labs: Abnormal Lab Results - Last 24 Hours (Table) 12/25/22 12/25/22 12/25/22 Range/Units 21:18 21:18 21:18 WBC 18.4 H (3.8-10.6) k/uL Hct 47.0 H (34.0-46.0) % Neutrophils # 11.0 H (1.3-7.7) k/uL Lymphocytes # 5.7 H (1.0-4.8) k/uL Potassium 3.4 L (3.5-5.1) mmol/L Carbon Dioxide 20 L (22-30) mmol/L Creatinine 1.35 H (0.52-1.04) mg/dL Glucose 163 H (74-99) mg/dL POC Glucose (mg/dL) (70-110) mg/dL Plasma Lactic Acid Wayne 3.4 H* (0.7-2.0) mmol/L AST 48 H (14-36) U/L ALT 67 H (4-34) U/L Alkaline Phosphatase 133 H (38-126) U/L Urine Protein (Negative) Urine Glucose (UA) (Negative) Ur Squamous Epith Cells (0-4) /hpf Urine Bacteria (None) /hpf Hyaline Casts (0-2) /lpf Urine Mucus (None) /hpf 12/25/22 12/25/22 Range/Units 21:21 23:13 WBC (3.8-10.6) k/uL Hct (34.0-46.0) % Neutrophils # (1.3-7.7) k/uL Lymphocytes # (1.0-4.8) k/uL Potassium (3.5-5.1) mmol/L Carbon Dioxide (22-30) mmol/L Creatinine (0.52-1.04) mg/dL Glucose (74-99) mg/dL POC Glucose (mg/dL) 168 H (70-110) mg/dL Plasma Lactic Acid Wayne (0.7-2.0) mmol/L AST (14-36) U/L ALT (4-34) U/L Alkaline Phosphatase (38-126) U/L Urine Protein 1+ H (Negative) Urine Glucose (UA) Trace H (Negative) Ur Squamous Epith Cells 5 H (0-4) /hpf Urine Bacteria Rare H (None) /hpf Hyaline Casts 4 H (0-2) /lpf Urine Mucus Rare H (None) /hpf
[2022-12-26] MEDS ORDERED: SODIUM CHLORIDE 0.9% 1,000 ML IV SCH (08:00)
[2022-12-26] MEDS: PIPERACILLIN-TAZOBACTAM 3.375 GM in SODIUM CHLORIDE 0.9% 100 ML IVPB SCH ×3 (08:09→22:58)
[2022-12-26] MEDS: ENOXAPARIN 40 MG/0.4 ML SYRINGE SQ SCH (08:14)
[2022-12-26 09:09] LABS: HCT 38.7 % (34.0-46.0); MCH 30.4 pg (25.0-35.0); MCHC 32.7 g/dL (31.0-37.0); Mean Platelet Volume 6.9; Platelet Count 242 k/uL (150-450); RBC 4.16 m/uL (3.80-5.40); RDW 14.1 % (11.5-15.5)
[2022-12-26] MEDS ORDERED: NICOTINE GUM (POLACRILEX) 2 MG GUM BUCCAL PRN (09:19)
[2022-12-26 09:26] LABS: HGB 12.7 gm/dL (11.4-16.0)
[2022-12-26 09:30] LABS: ALT 52 U/L (4-34); AST 42 U/L (14-36); African American GFR (CKD) 75 (>60 ml/min/1.73 sqM); Alkaline Phosphatase 88 U/L (38-126); Anion Gap 5 mmol/L; Blood Urea Nitrogen 11 mg/dL (7-17); Calcium 8.3 mg/dL (8.4-10.2); Carbon Dioxide 20 mmol/L (22-30); Chloride 112 mmol/L (98-107); Glucose 104 mg/dL (74-99); Non-African American GFR(CKD) 65 (>60 ml/min/1.73 sqM); Sodium 137 mmol/L (137-145); Total Bilirubin 0.5 mg/dL (0.2-1.3); Total Protein 5.3 g/dL (6.3-8.2)
[2022-12-26 09:32] LABS: Potassium 5.1 mmol/L (3.5-5.1)
[2022-12-26] MEDS: NICOTINE 21MG/24HR PATCH TRANSDERM SCH (09:43)
--- NOTE | 2022-12-26 12:43 | CONS ---
CONSULTATION HISTORY OF PRESENT ILLNESS: Kavya is a 57-year-old lady, who is brought to the emergency room having had a symptom of transient loss of consciousness. The patient states that she was sitting down with her , had donated plasma this morning. She did not eat or drink and then had this sudden blank stare and subsequently became diaphoretic, had 2 bouts of vomiting, brought to the emergency room, where she was found to be hypotensive and diaphoretic, received fluids and at the time of my evaluation, appears comfortable, stable, and denies any chest pain or difficulty in breathing. Her EKG shows sinus bradycardia with T-wave inversions in the precordial leads. Compared to an old EKG, these are more pronounced. Troponins are negative. Lactic acid is elevated. White cell count is elevated. The patient's clinical presentation seems to be more related to sepsis and then possible cardiac problems; however, we will watch her on telemetry, obtain a 2D echo, and decide on further course of action based on how her symptoms evolve. PAST MEDICAL HISTORY: Significant for hypertension. MEDICATIONS: Medications at home include, 1. Zestril 10 daily. 2. Neurontin 800 t.i.d. 3. Vistaril. 4. Effexor. ALLERGIES: There are no known drug allergies. FAMILY HISTORY: Negative for premature coronary artery disease. SOCIAL HISTORY: Significant for smoking and occasional marijuana use. Denies drug use or alcohol abuse. REVIEW OF SYSTEMS: 14 out of 14 review of systems has been performed. Pertinents are as documented. PHYSICAL EXAMINATION: GENERAL: Comfortable at rest. VITAL SIGNS: Stable. The patient was hypotensive on presentation, remains in sinus rhythm. O2 saturation is 96% on 2 L. NECK: There is jugular venous distention. Carotid upstroke is normal. There is no bruit. CHEST: Reveals good air entry bilaterally. HEART: Reveals first and second heart sounds. No gallop. No murmur. No rub. ABDOMEN: Soft, nontender. EXTREMITIES: Did not reveal any edema. Peripheral pulses are felt. LABORATORY DATA: Show a white cell count of 11, potassium is 5.1, creatinine is 0.9. Troponin is negative. ASSESSMENT AND PLAN: Syncope, rule out cardiac causes. We will obtain a 2D echo to evaluate her LV function. Watch her on telemetry. Consider further workup as outpatient. She is currently being investigated and treated for possible sepsis. MMODL / IJN: [id number] /
[2022-12-26] MEDS ORDERED: hydrOXYzine pamoate 25 MG CAP PO PRN (14:34)
--- NOTE | 2022-12-26 15:11 | P.PN ---
Subjective Progress Note Date: 12/26/22 (delayed charting seen at 0915) Patient is a 57-year-old female history of hypertension, dyslipidemia, and nonalcoholic cirrhosis of the liver who presented to the hospital after a syncopal episode and vomiting. Earlier in the day she had donated plasma and it was the first time she had donated an entire bottle. In the ER she underwent an extensive evaluation. On arrival she was hypotensive with a blood pressure 67/30 and bradycardic with a pulse of 54. Laboratory analysis was remarkable for white blood cell count 18.4, potassium 3.4, carbon dioxide 20, creatinine 1.35, glucose 163, lactic acid 3.4, AST 48, ALT 67, alkaline phosphatase of 133. CT abdomen and pelvis showed possible colitis in the sigmoid colon with hepatic steatosis. Arrangements are made for admission due to syncope and profound hypotension. Chest x-ray showed no acute process. Cardiology was consulted and agreed with echo and tele. She was started on zosyn with concerns for possible sepsis due to WBC [address] showing colitis. Patient seen and examined at bedside. She reports that yesterday she did have some abdominal pain in her right lower quadrant and this morning has been having diarrhea. Prior to this she felt well with no recent cough, cold, fever, flu. She did not have any abdominal pain or diarrhea prior to her syncopal episode. She does report that she hadn't donated plasma and quite some time and donated twice the amount she usually does yesterday. She feels as though she may have been dehydrated causing her syncopal event. She denies any significant heart history. Vital signs reviewed General: nontoxic, no distress, appears at stated age Cardiovascular: S1S2 reg, no murmur, positive posterior tibial pulse bilateral, Lungs: CTA bilateral, no rhonchi, no rales , no accessory muscle use Abdominal: soft, nontender to palpation, no guarding, no appreciable organomegaly Ext: no gross muscle atrophy, no edema b/l lower extremities, no contractures Neuro: CN II-XI grossly intact, no focal neuro deficits Psych: Alert, oriented, appropriate affect Assessment/Plan: Syncope Lactic acidosis Hypotension likely secondary to volume depletion Acute kidney injury Leukocytosis -May be reactive versus secondary to ischemic colitis due to hypotension -Continue with Zosyn 3.375 g every 8 hours IV piggyback. Discontinue vancomycin area of concerns for possible colitis given patient's diarrhea and abdominal pain -Patient's hypotension has resolved and they have completed IV fluid resuscitation after receiving 4 L of IV fluids. We'll transition IV fluids to 0.45 normal saline at 75 mL an hour. We'll continue to hold lisinopril -Continue with regular diet and monitor pain -Cardiology note reviewed: Continue with telemetry and await echocardiogram -Telemetry reviewed no signs of arrhythmia noted -Check urine drug screen and pro-calcitonin -Repeat CBC and BMP in a.m. Hypokalemia, resolved Chronic: Hypertension, dyslipidemia, nonalcoholic cirrhosis of the liver, hepatitis B, kidney stones Imaging: No new results Data Review: Labs reviewed include CBC, BMP, and liver enzymes which are remarkable for white blood cell count 11, carbon dioxide 20, lactic acid 1.2, AST 42, ALT 52 DVT prophylaxis: Lovenox Anticipated discharge date: in AM Anticipated discharge place: home This dictation was prepared using [employer] voice recognition software. Though every attempt is made to correct errors during dictation some may still exist. Objective - Vital Signs Vital signs: Vital Signs Temp 98.0 F 12/26/22 13:52 Pulse 66 12/26/22 13:52 Resp 16 12/26/22 13:52 BP 128/80 12/26/22 13:52 Pulse Ox 99 12/26/22 13:52 FiO2 Intake & Output 12/25/22 12/26/22 12/26/22 18:59 06:59 18:59 Weight 80.739 kg 80.739 kg Other: # Bowel Movements 1 - Labs CBC & Chem 7: 12/26/22 09:02 12/26/22 09:02 Labs: Abnormal Lab Results - Last 24 Hours (Table) 12/25/22 12/25/22 12/25/22 Range/Units 21:18 21:18 21:18 WBC 18.4 H (3.8-10.6) k/uL Hct 47.0 H (34.0-46.0) % Neutrophils # 11.0 H (1.3-7.7) k/uL Lymphocytes # 5.7 H (1.0-4.8) k/uL Potassium 3.4 L (3.5-5.1) mmol/L Chloride (98-107) mmol/L Carbon Dioxide 20 L (22-30) mmol/L Creatinine 1.35 H (0.52-1.04) mg/dL Glucose 163 H (74-99) mg/dL POC Glucose (mg/dL) (70-110) mg/dL Plasma Lactic Acid Wayne 3.4 H* (0.7-2.0) mmol/L Calcium (8.4-10.2) mg/dL AST 48 H (14-36) U/L ALT 67 H (4-34) U/L Alkaline Phosphatase 133 H (38-126) U/L Total Protein (6.3-8.2) g/dL Albumin (3.5-5.0) g/dL Urine Protein (Negative) Urine Glucose (UA) (Negative) Ur Squamous Epith Cells (0-4) /hpf Urine Bacteria (None) /hpf Hyaline Casts (0-2) /lpf Urine Mucus (None) /hpf 12/25/22 12/25/22 12/26/22 Range/Units 21:21 23:13 09:02 WBC 11.0 H (3.8-10.6) k/uL Hct (34.0-46.0) % Neutrophils # (1.3-7.7) k/uL Lymphocytes # (1.0-4.8) k/uL Potassium (3.5-5.1) mmol/L Chloride (98-107) mmol/L Carbon Dioxide (22-30) mmol/L Creatinine (0.52-1.04) mg/dL Glucose (74-99) mg/dL POC Glucose (mg/dL) 168 H (70-110) mg/dL Plasma Lactic Acid Wayne (0.7-2.0) mmol/L Calcium (8.4-10.2) mg/dL AST (14-36) U/L ALT (4-34) U/L Alkaline Phosphatase (38-126) U/L Total Protein (6.3-8.2) g/dL Albumin (3.5-5.0) g/dL Urine Protein 1+ H (Negative) Urine Glucose (UA) Trace H (Negative) Ur Squamous Epith Cells 5 H (0-4) /hpf Urine Bacteria Rare H (None) /hpf Hyaline Casts 4 H (0-2) /lpf Urine Mucus Rare H (None) /hpf 12/26/22 Range/Units 09:02 WBC (3.8-10.6) k/uL Hct (34.0-46.0) % Neutrophils # (1.3-7.7) k/uL Lymphocytes # (1.0-4.8) k/uL Potassium (3.5-5.1) mmol/L Chloride 112 H (98-107) mmol/L Carbon Dioxide 20 L (22-30) mmol/L Creatinine (0.52-1.04) mg/dL Glucose 104 H (74-99) mg/dL POC Glucose (mg/dL) (70-110) mg/dL Plasma Lactic Acid Wayne (0.7-2.0) mmol/L Calcium 8.3 L (8.4-10.2) mg/dL AST 42 H (14-36) U/L ALT 52 H (4-34) U/L Alkaline Phosphatase (38-126) U/L Total Protein 5.3 L (6.3-8.2) g/dL Albumin 3.0 L (3.5-5.0) g/dL Urine Protein (Negative) Urine Glucose (UA) (Negative) Ur Squamous Epith Cells (0-4) /hpf Urine Bacteria (None) /hpf Hyaline Casts (0-2) /lpf Urine Mucus (None) /hpf
--- NOTE | 2022-12-26 15:22 | CA ---
Transthoracic Echo Report Name: Kavya Canseco Age: 57 Gender: F : 1965 Exam Date: 12/26/2022 11:31 Exam Location: [facility] Ht (in): 60 Wt (lb): 178 Ordering Physician: Stephani Black DO Attending/Referring Phys: [id number], Sofia Strainer Cleaner Ivan Dean Procedure CPT: Indications: Syncope Cardiac Hx: Technical Quality: Technically difficult study Contrast 1: Total Dose (mL): Contrast 2: Total Dose (mL): MEASUREMENTS (Male / Female) Normal Values 2D ECHO LV Diastolic Diameter PLAX 4.7 cm 4.2 - 5.9 / 3.9 - 5.3 cm LV Systolic Diameter PLAX 3.3 cm IVS Diastolic Thickness 1.0 cm 0.6 - 1.0 / 0.6 - 0.9 cm LVPW Diastolic Thickness 1.0 cm 0.6 - 1.0 / 0.6 - 0.9 cm LV Relative Wall Thickness 0.4 RV Internal Dim ED PLAX 2.8 cm LVOT Diameter 1.7 cm Aortic Root Diameter 2.5 cm LA Systolic Diameter LX 2.6 cm 3.0 - 4.0 / 2.7 - 3.8 cm LV Diastolic Volume MOD BP 38.4 cm??? 67 - 155 / 56 - 104 cm??? LV Systolic Volume MOD BP 13.7 cm??? / 19 - 49 cm??? LV Ejection Fraction MOD BP 64.4 % >= 55 % LV Cardiac Index MOD BP 734.6 cm???/min???m??? LV Diastolic Volume MOD 4C 46.1 cm??? LV Systolic Volume MOD 4C 12.7 cm??? LV Ejection Fraction MOD 4C 72.4 % LV Cardiac Index MOD 4C 991.5 cm???/min???m??? LV Diastolic Length 4C 7.2 cm LV Systolic Length 4C 6.1 cm LV Diastolic Volume MOD 2C 29.9 cm??? LV Systolic Volume MOD 2C 14.1 cm??? LV Ejection Fraction MOD 2C 52.7 % LV Cardiac Index MOD 2C 468.0 cm???/min???m??? LV Diastolic Length 2C 6.7 cm LV Systolic Length 2C 5.8 cm LA Volume 32.3 cm??? 18 - 58 / 22 - 52 cm??? Ascending Aorta Diameter 2.5 cm DOPPLER AV Peak Velocity 132.6 cm/s AV Peak Gradient 7.0 mmHg LVOT Peak Velocity 109.7 cm/s LVOT Peak Gradient 4.8 mmHg LVOT Velocity Time Integral 24.9 cm LVOT Stroke Volume 59.4 cm??? LVOT Stroke Volume Index 33.4 ml/m??? LVOT Cardiac Index 1762.3 cm???/min???m??? AV Area Cont Eq pk 2.0 cm??? MV Peak Velocity 88.0 cm/s MV Peak Gradient 3.1 mmHg MV Mean Velocity 41.7 cm/s MV Mean Gradient 0.8 mmHg MV Velocity Time Integral 33.3 cm Mitral E Point Velocity 77.0 cm/s Mitral A Point Velocity 84.5 cm/s Mitral E to A Ratio 0.9 MV Deceleration Time 233.2 ms MV E' Velocity 8.7 cm/s Mitral E to MV E' Ratio 8.8 TR Peak Velocity 234.7 cm/s TR Peak Gradient 22.0 mmHg Right Ventricular Systolic Press 27.1 mmHg PV Peak Velocity 274.8 cm/s PV Peak Gradient 30.2 mmHg FINDINGS Left Ventricle Normal LV size and wall thickness. Left ventricular ejection fraction is estimated at 50-55 %. Right Ventricle Normal right ventricular size. RVSP= 30 mmHg. Right Atrium Normal right atrial size. Left Atrium Normal left atrial size. LA Volume index= 18ml/m2 Mitral Valve Structurally normal mitral valve. No mitral regurgitation. Aortic Valve Trileaflet aortic valve. No aortic valve stenosis or regurgitation. Tricuspid Valve Tricuspid valve not well visualized. Mild TR Pulmonic Valve Pulmonic valve not well visualized. No pulmonic regurgitation. Pericardium Normal pericardium. Aorta Normal size aortic root. CONCLUSIONS Left ventricular ejection fraction 50-55% RVSP 38 No mitral regurgitation Mild tricuspid regurgitation No pericardial effusion Previewed by: Dr. Noe Kebede DO (Electronically Signed) Final Date: 26 December 2022 15:21
[2022-12-26] MEDS: GABAPENTIN 400 MG CAP PO SCH ×2 (15:32→21:03)
[2022-12-26] MEDS: SODIUM CHLORIDE 0.45% 1,000 ML IV SCH (15:33)
[2022-12-26 18:38] LABS: Amphetamine Screen,Urine Not Detected (NotDetected); Barbiturate Screen,Urine Not Detected (NotDetected); Benzodiazepines Screen,Urine Not Detected (NotDetected); Cocaine Screen,Urine Not Detected (NotDetected); Methadone Screen, Urine Not Detected (NotDetected); Opiate Screen,Urine Not Detected (NotDetected); Oxycodone Screen, Urine Not Detected (NotDetected); Phencyclidine Screen,Urine Not Detected (NotDetected); Tricyclic Antidepressant,Urine Not Detected (NotDetected); Urn Cannabinoid Scrn Detected (NotDetected)
[2022-12-26] MEDS ORDERED: ARIPiprazole 15 MG TAB PO SCH (21:00)
[2022-12-26] MEDS ORDERED: VANCOMYCIN 1,500 MG in SODIUM CHLORIDE 0.9% 500 ML 500 ML IVPB SCH (22:00)
[2022-12-27] MEDS ORDERED: VANCOMYCIN 1,500 MG in SODIUM CHLORIDE 0.9% 500 ML 500 ML IVPB SCH (02:00)
[2022-12-27 07:06] VITALS: RESP 16
[2022-12-27 07:41] LABS: HCT 36.7 % (34.0-46.0); HGB 12.2 gm/dL (11.4-16.0); MCH 30.9 pg (25.0-35.0); MCHC 33.2 g/dL (31.0-37.0); MCV 92.8 fL (80.0-100.0); Platelet Count 247 k/uL (150-450); RBC 3.96 m/uL (3.80-5.40); RDW 14.3 % (11.5-15.5); WBC 6.7 k/uL (3.8-10.6)
[2022-12-27 08:05] LABS: ALT 54 U/L (4-34); AST 43 U/L (14-36); African American GFR (CKD) 80 (>60 ml/min/1.73 sqM); Albumin 3.3 g/dL (3.5-5.0); Alkaline Phosphatase 94 U/L (38-126); Anion Gap 6 mmol/L; Blood Urea Nitrogen 9 mg/dL (7-17); Calcium 8.7 mg/dL (8.4-10.2); Carbon Dioxide 23 mmol/L (22-30); Chloride 111 mmol/L (98-107); Glucose 106 mg/dL (74-99); Non-African American GFR(CKD) 70 (>60 ml/min/1.73 sqM); Potassium 4.1 mmol/L (3.5-5.1); Sodium 140 mmol/L (137-145); Total Bilirubin 0.4 mg/dL (0.2-1.3); Total Protein 5.8 g/dL (6.3-8.2)
[2022-12-27] MEDS ORDERED: VENLAFAXINE HCL ER 75 MG CAP PO SCH (09:00)
[2022-12-27] MEDS: GABAPENTIN 400 MG CAP PO SCH (09:21)
[2022-12-27] MEDS: PIPERACILLIN-TAZOBACTAM 3.375 GM in SODIUM CHLORIDE 0.9% 100 ML IVPB SCH (09:22)
[2022-12-27] MEDS: NICOTINE 21MG/24HR PATCH TRANSDERM SCH (09:22)
[2022-12-27] MEDS: ENOXAPARIN 40 MG/0.4 ML SYRINGE SQ SCH (09:22)
[2022-12-27] MEDS: SODIUM CHLORIDE 0.45% 1,000 ML IV SCH (09:23)
--- NOTE | 2022-12-27 11:27 | P.DS ---
Providers Date of admission: 12/26/22 00:56 Expected date of discharge: 12/27/22 Attending physician: Katharine Elias MD Consults: 12/26/22 01:33 Consult Physician Routine Consulting Provider: [facility] Consult Reason/Comments: Possible sick sinus syndrome Do you want consulting provider notified?: Yes, Notify in am Primary care physician: Stated None Hospital Course: Discharge Diagnosis: Syncope Lactic acidosis GIANCARLO Hypotension due to volume depletion Colitis Hypokalemia Hospital Course: Patient is a 57-year-old female history of hypertension, dyslipidemia, and nonalcoholic cirrhosis of the liver who presented to the hospital after a syncopal episode and vomiting. Earlier in the day she had donated plasma and it was the first time she had donated an entire bottle. In the ER she underwent an extensive evaluation. On arrival she was hypotensive with a blood pressure 67/30 and bradycardic with a pulse of 54. Laboratory analysis was remarkable for white blood cell count 18.4, potassium 3.4, carbon dioxide 20, creatinine 1.35, glucose 163, lactic acid 3.4, AST 48, ALT 67, alkaline phosphatase of 133. CT abdomen and pelvis showed possible colitis in the sigmoid colon with hepatic steatosis. Arrangements are made for admission due to syncope and profound hypotension. Chest x-ray showed no acute process. Cardiology was consulted and agreed with echo and tele. She was started on zosyn with concerns for possible sepsis due to WBC 18.[address] showing colitis. Her diarrhea and abdominal pain resolved. Echocardiogram showed ejection fraction 50-55% with RVSP 38 and no significant valvular disease. She had no significant arrhythmia on echocardiogram. She was cleared by cardiology. She was determined stable for discharge home. Follow-up:5 additional days of Augmentin therapy, follow-up with Dr. Lloyd in 2-3 days. Patient seen and examined at bedside. Diarrhea resolved, no additional syncopal episodes.Feeling well and wants to go home. Vital signs reviewed and stable. General: nontoxic, no distress, appears at stated age Cardiovascular: S1S2 reg, no murmur, positive posterior tibial pulse bilateral, Lungs: CTA bilateral, no rhonchi, no rales , no accessory muscle use Abdominal: soft, nontender to palpation, no guarding, no appreciable organomegaly Ext: no gross muscle atrophy, no edema b/l lower extremities, no contractures Neuro: CN II-XI grossly intact, no focal neuro deficits Psych: Alert, oriented, appropriate affect A total of 32 minutes of time were spent preparing this complex discharge summary. Patient was discharged on 12/27/22. This dictation was prepared using [employer] voice recognition software. Though every attempt is made to correct errors during dictation some may still exist. Patient Condition at Discharge: Stable Plan - Discharge Summary New Discharge Prescriptions: New Amoxic-Pot Clav 875-125Mg [Augmentin 875-125] 1 tab PO Q12HR 5 Days #10 tab Continue Gabapentin [Neurontin] 800 mg PO TID hydrOXYzine pamoate [Vistaril] 50 mg PO BID PRN PRN Reason: Anxiety lisinopriL [Zestril] 10 mg PO DAILY Venlafaxine HCl ER [Effexor XR] 75 mg PO DAILY ARIPiprazole 15 mg PO HS Discharge Medication List Gabapentin [Neurontin] 800 mg PO TID 12/03/13 [History] hydrOXYzine pamoate [Vistaril] 50 mg PO BID PRN 10/22/19 [History] lisinopriL [Zestril] 10 mg PO DAILY 10/22/19 [History] ARIPiprazole 15 mg PO HS 12/26/22 [History] Venlafaxine HCl ER [Effexor XR] 75 mg PO DAILY 12/26/22 [History] Amoxic-Pot Clav 875-125Mg [Augmentin 875-125] 1 tab PO Q12HR 5 Days #10 tab 12/27/22 [Rx] Follow up Appointment(s)/Referral(s): Nasim Lloyd MD [REFERRING] - 1-2 days Activity/Diet/Wound Care/Special Instructions: Activity: As tolerated Diet: Heart healthy Anna diet for the next 3 days Special Instructions: Return if lightheaded/dizzy, fainting episode, chest pain, fevers No Plasma donation for the next 2- 3 weeks Discharge Disposition: HOME SELF-CARE
--- NOTE | 2022-12-27 12:09 | P.PN ---
Subjective HISTORY OF PRESENT ILLNESS: This is a 57-year-old female who is admitted to the hospital after having a syncopal episode when donating plasma. Patient examined this morning at the bedside. She denies chest pain or pressure. She denies shortness of breath. Vital signs are stable. Telemetry reveals sinus mechanism. Echocardiogram completed revealing ejection fraction 50-55% with no significant valvular abnormalities. PHYSICAL EXAM: VITAL SIGNS: Reviewed. GENERAL: Well-developed in no acute distress. NECK: Supple. No JVD or thyromegaly LUNGS: Respirations even and unlabored. Lungs essentially clear to auscultation bilaterally. HEART: Regular rate and rhythm. S1 and S2 heard. EXTREMITIES: Normal range of motion. No clubbing or cyanosis. Peripheral pulses intact. No lower extremity edema ASSESSMENT: Syncope suspect secondary to to vascular volume depletion Hypotension secondary to volume depletion Acute kidney injury Hypokalemia PLAN: No further inpatient recommendations from a cardiology perspective. Patient is currently stable for discharge home today from a cardiac standpoint. Nurse practitioner note has been reviewed by physician. Signing provider agrees with the documented findings, assessment, and plan of care. Objective - Vital Signs Vital signs: Vital Signs Temp 98.0 F 12/27/22 08:00 Pulse 58 L 12/27/22 08:00 Resp 16 12/27/22 08:00 BP 131/70 12/27/22 08:00 Pulse Ox 97 12/27/22 09:12 FiO2 Intake & Output 12/26/22 12/27/22 12/27/22 18:59 06:59 18:59 Intake Total 110 Output Total 200 Balance -90 Weight 80.739 kg Intake: Oral 110 Output: Urine 200 Other: # Voids 1 1 # Bowel Movements 1 - Labs CBC & Chem 7: 12/27/22 07:29 12/27/22 07:29 Labs: Abnormal Lab Results - Last 24 Hours (Table) 12/26/22 12/26/22 12/27/22 Range/Units 09:02 17:46 07:29 Chloride 111 H (98-107) mmol/L Glucose 106 H (74-99) mg/dL AST 43 H (14-36) U/L ALT 54 H (4-34) U/L Total Protein 5.8 L (6.3-8.2) g/dL Albumin 3.3 L (3.5-5.0) g/dL Procalcitonin 0.19 H (0.02-0.09) ng/mL U Marijuana (THC) Screen Detected H (NotDetected)
[2022-12-27 13:15] VITALS: BP 144/81; PULSE 53; TEMP 98
== END 2022-12-27 14:57 | disposition home or self-care (01) ==
LOC: EC 21:01 → 3SCARD 12-26 00:56 → INTOOBSV 12-26 00:56 → 3SCARD 12-26 12:56
PROVIDERS: ADMIT Internal Medicine; ATTEND Internal Medicine
DX: R55 Syncope and collapse (principal); N17.9 Acute kidney failure, unspecified; I95.9 Hypotension, unspecified; E86.9 Volume depletion, unspecified; E87.6 Hypokalemia; E87.20 Acidosis, unspecified; K52.9 Noninfective gastroenteritis and colitis, unspecified; D72.829 Elevated white blood cell count, unspecified; K76.0 Fatty (change of) liver, not elsewhere classified; I10 Essential (primary) hypertension; E78.5 Hyperlipidemia, unspecified; B19.10 Unspecified viral hepatitis B without hepatic coma; K74.60 Unspecified cirrhosis of liver; I73.00 Raynaud's syndrome without gangrene; M19.90 Unspecified osteoarthritis, unspecified site; F17.200 Nicotine dependence, unspecified, uncomplicated; F31.9 Bipolar disorder, unspecified; F41.9 Anxiety disorder, unspecified; Z79.899 Other long term (current) drug therapy; Z20.822 Contact with and (suspected) exposure to COVID-19; Z87.442 Personal history of urinary calculi; Z87.410 Personal history of cervical dysplasia; Z90.49 Acquired absence of other specified parts of digestive tract; Z98.51 Tubal ligation status; Z98.890 Other specified postprocedural states; Z82.49 Family history of ischemic heart disease and other diseases of the circulatory system; Z80.0 Family history of malignant neoplasm of digestive organs; Z80.1 Family history of malignant neoplasm of trachea, bronchus and lung; Z80.3 Family history of malignant neoplasm of breast; Z80.8 Family history of malignant neoplasm of other organs or systems
CPT/HCPCS: 96361 ×4; 96366 ×3; 96372; 96365; 96367; 96375; 99285; 36415; 94760; 93005; 93306; 83880; 80053 ×3; 83605 ×2; 83690; 83735; 84484 ×2; 85025; 85027 ×2; 85610; 85730; 81001; 87040; 80306; 80320; 84145; 87636; 71046; 74177; G0378; S4990 ×2; J2543 ×2; J3370; J2405; J1650; Q9967

== ENCOUNTER → 2023-05-28 | Outpatient (CLI) | payer OTHER ==
--- NOTE | 2023-05-28 08:58 | US ---
EXAMINATION TYPE: US liver DATE OF EXAM: 05/28/2023 COMPARISON: CT 12/25/2022 CLINICAL INDICATION: Female, 57 years old with history of R94.5 ABNORMAL LFT'S; Abnormal LFTs. Hx cho lecystectomy. TECHNIQUE: Multiple sonographic images of the right upper quadrant are obtained. FINDINGS: EXAM MEASUREMENTS: Liver Length: 16.6 cm Gallbladder: Surgically absent. CBD: 0.59 cm Right Kidney: 10.8 x 5.0 x 4.3 cm IC DESIGN MANAGER NOTES: Exam is limited due to patient body habitus and gas. Pancreas: Duct borderline to mildly dilated at 3.8 mm. Pancreatic tail was not seen due to gas. Liver: Appears very coarse in echotexture/heterogeneous. Diffuse increased echogenicity. Gallbladder: Surgically absent. Evidence for sonographic Villatoro's sign: No CBD: Portions seen measure upper limits of normal. Right Kidney: No hydronephrosis or masses seen IMPRESSION: 1. Severe hepatic steatosis. Appropriate clinical management advised. 2. Borderline to mildly dilated main pancreatic duct up to 3.8 mm. Possibly chronic for the patient. Correlate amylase and lipase levels. 3. Bile duct upper limits of normal in caliber at 6 mm, acceptable given postcholecystectomy status.
== END | disposition home or self-care (01) ==
LOC: RADUSWWP 07:14
PROVIDERS: ATTEND Family Medicine
DX: K76.0 Fatty (change of) liver, not elsewhere classified (principal); K86.89 Other specified diseases of pancreas; R94.5 Abnormal results of liver function studies; Z90.49 Acquired absence of other specified parts of digestive tract
CPT/HCPCS: 76705

== ENCOUNTER 2024-09-19 14:16 | Emergency (ER) | payer OTHER ==
--- NOTE | 2024-09-19 14:43 | ED ---
Abdominal Pain HPI - General Source: patient, RN notes reviewed Mode of arrival: ambulatory Limitations: no limitations - History of Present Illness MD Complaint: abdominal pain, flank pain <Maryse Johnson - Last Filed: 09/19/24 14:42> <Jacki Ortiz - Last Filed: 09/20/24 06:42> - General Chief Complaint: Abdominal Pain Stated Complaint: Right flank pain, numbness Time Seen by Provider: 09/19/24 14:35 - History of Present Illness Initial Comments: Quick Note: This is a 58-year-old female who presents to the emergency department for right flank/side pain. States that it has going on for the last 4 to 5 days. Denies any radiation of pain, nausea, or vomiting. Denies any injuries. Denies any history of kidney stones or similar pain in the past. (Maryse Johnson) 58-year-old female since emergency department with right sided flank/back pain, nontraumatic, over the last 4 to 5 days. Patient states that the pain does not radiate and is worse with movement and/or palpation. She denies nausea, vomiting, fevers, chills, abdominal pain, hematuria, creased urinary frequency or urgency, chest pain or difficulty breathing. Denies history of kidney stones or kidney infections. Previous cholecystectomy. (Jacki Ortiz) - Related Data Home Medications Medication Instructions Recorded Confirmed Gabapentin [Neurontin] 800 mg PO TID 12/03/13 12/26/22 hydrOXYzine pamoate [Vistaril] 50 mg PO BID PRN 10/22/19 12/26/22 lisinopriL [Zestril] 10 mg PO DAILY 10/22/19 12/26/22 ARIPiprazole 15 mg PO HS 12/26/22 12/26/22 Venlafaxine HCl ER [Effexor XR] 75 mg PO DAILY 12/26/22 12/26/22 Previous Rx's Medication Instructions Recorded Amoxic-Pot Clav 875-125Mg 1 tab PO Q12HR 5 Days #10 tab 12/27/22 [Augmentin 875-125] Ibuprofen [Motrin] 800 mg PO Q8HR PRN #30 tab 09/19/24 Allergies Allergy/AdvReac Type Severity Reaction Status Date / Time No Known Allergies Allergy Verified 09/19/24 14:34 Review of Systems ROS Other: All systems not noted in ROS Statement are negative. <Maryse Johnson - Last Filed: 09/19/24 14:42> ROS Other: All systems not noted in ROS Statement are negative. <Jacki Ortiz - Last Filed: 09/20/24 06:42> ROS Statement: Those systems with pertinent positive or pertinent negative responses have been documented in the HPI. Past Medical History Past Medical History: Hyperlipidemia, Hypertension, Liver Disease, Oste oarthritis (OA) Additional Past Medical History / Comment(s): Hx of Hepatitis B, Non-Alcoholic Cirrhosis of liver, kidney stones. Thomas's syndrome. 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 She was treated for cervical dysplasia in 1989. History of Any Multi-Drug Resistant Organisms: None Reported Past Surgical History: Cholecystectomy, Orthopedic Surgery, Tubal Ligation Additional Past Surgical History / Comment(s): Left shoulder surgery X4 with pins & screws, coloposcopy 2016(next after 10yr).Treatment for cervical dysplasia, D&C. Past Anesthesia/Blood Transfusion Reactions: No Reported Reaction Past Psychological History: Anxiety, Bipolar, Depression Smoking Status: Current every day smoker Past Alcohol Use History: None Reported Past Drug Use History: Marijuana - Past Family History Mother Family Medical History: Cancer Additional Family Medical History / Comment(s): Crohn's dz, Bone Cancer. Maternal grandmother had widespread cancer, maternal grandfather had an DE. Father Family Medical History: Cancer Additional Family Medical History / Comment(s): Lung Cancer. Paternal grandmother had breast cancer. <Maryse Johnson - Last Filed: 09/19/24 14:42> General Exam Limitations: no limitations <Maryse Johnson - Last Filed: 09/19/24 14:42> Head exam: Present: atraumatic, normocephalic, normal inspection ENT exam: Present: normal exam, mucous membranes moist Neck exam: Present: normal inspection. Absent: tenderness, meningismus, lymphadenopathy Respiratory exam: Present: normal lung sounds bilaterally. Absent: respiratory distress, wheezes, rales, rhonchi, stridor Cardiovascular Exam: Present: regular rate, normal rhythm, normal heart sounds. Absent: systolic murmur, diastolic murmur, rubs, gallop, clicks GI/Abdominal exam: Present: soft, normal bowel sounds. Absent: distended, tenderness, guarding, rebound, rigid Extremities exam: Present: normal inspection, full ROM, normal capillary refill. Absent: tenderness, pedal edema, joint swelling, calf tenderness Back exam: Present: normal inspection, tenderness, CVA tenderness (R). Absent: CVA tenderness (L) Skin exam: Present: warm, dry, intact, normal color. Absent: rash <Jacki Ortiz - Last Filed: 09/20/24 06:42> - General Exam Comments Initial Comments: Visual Physical Exam Vital signs reviewed General: Well-appearing, nontoxic, no acute distress. Head: Normocephalic, atraumatic Eyes: PERRLA, EOMI ENT: Airway patent Chest: Nonlabored breathing Skin: No visual rash, normal skin tone Neuro: Alert and oriented 3 Musculoskeletal: No gross abnormalities (Maryse Johnson) Course Vital Signs 09/19/24 09/19/24 14:31 17:39 Temperature 97.6 F 98.4 F Pulse Rate 71 61 Respiratory 20 19 Rate Blood Pressure 124/79 108/60 O2 Sat by Pulse 99 96 Oximetry Medical Decision Making <Maryse Johnson - Last Filed: 09/19/24 14:42> - Lab Data Result diagrams: 09/19/24 15:36 09/19/24 15:36 <Jacki Ortiz - Last Filed: 09/20/24 06:42> - Medical Decision Making I performed the QuickNote portion of this chart. Signed Maryse Johnson PA-C. (Maryse Johnson) Was pt. sent in by a medical professional or institution ([facility], [facility], urgent care, hospital, or shelter...) When possible be specific @ -No Did you speak to anyone other than the patient for history (EMS, parent, family, police, friend...)? What history was obtained from this source @ -No Did you review nursing and triage notes (agree or disagree)? Why? @ -I reviewed and agree with nursing and triage notes Were old charts reviewed (outside hosp., previous admission, EMS record, old EKG, old radiological studies, urgent care reports/EKG's, shelter records)? Report findings @ -No old charts were reviewed Differential Diagnosis (chest pain, altered mental status, abdominal pain women, abdominal pain men, vaginal bleeding, weakness, fever, dyspnea, syncope, headache, dizziness, GI bleed, back pain, seizure, CVA, palpatations, mental health, musculoskeletal)? @ -Differential Abdominal Pain Women: Appendicitis, Cholecystitis, diverticulosis, ischemic bowel, pancreatitis, hepatitis, UTI, gastroenteritis, AAA, incarcerated hernia, bowel obstruction, constipation, inflammatory bowel, hepatitis, peptic ulcer disease, splenic infarction, perforated viscus, vulvitis, ovarian torsion, PID, kidney stone, placenta abruption, this is not meant to be an all-inclusive list EKG interpreted by me (3pts min.). @ -None X-rays interpreted by me (1pt min.). @ -None done CT interpreted by me (1pt min.). @ -CT of the abdomen pelvis without contrast reveals no evidence of acute abdominal process, appendix is normal with no evidence of obstructive uropathy or renal calculus U/S interpreted by me (1pt. min.). @ -None done What testing was considered but not performed or refused? (CT, X-rays, U/S, labs)? Why? @ -None What meds were considered but not given or refused? Why? @ -None Did you discuss the management of the patient with other professionals (professionals i.e. , PA, EDGE POLISHER, lab, RT, psych nurse, high school social science teacher, claim investigator, teacher, chief legal officer, community case manager)? Give summary @ -No Was smoking cessation discussed for >3mins.? @ -No Was critical care preformed (if so, how long)? @ -No Were there social determinants of health that impacted care today? How? (Homelessness, low income, unemployed, alcoholism, drug addiction, transportation, low edu. Level, literacy, decrease access to med. care, skilled nursing, rehab)? @ -No Was there de-escalation of care discussed even if they declined (Discuss DNR or withdrawal of care, Hospice)? DNR status @ -No What co-morbidities impacted this encounter? (DM, HTN, Smoking, COPD, CAD, C ancer, CVA, ARF, Chemo, Hep., AIDS, mental health diagnosis, sleep apnea, morbid obesity)? @ -None Was patient admitted / discharged? Hospital course, mention meds given and route, prescriptions, significant lab abnormalities, going to OR and other pertinent info. @ -Discharge. 58-year-old female presents emergency room with complaints of right-sided flank pain. Patient is originally evaluated emergency department waiting room as a quick note for laboratory testing as were addition to CT imaging. On my evaluation the patient she is resting company in examination bed. Patient does have right-sided back pain/CVA tenderness on examination that is nonradiating. Patient's laboratory testing is unremarkable including CBC, CMP, urinalysis. CT imaging of the abdomen pelvis without contrast no acute intra-abdominal process. Patient is provided with outpatient prescription for ibuprofen and is discussed with return parameters. Patient stable for discharge. Case discussed with Dr. De La Torre Undiagnosed new problem with uncertain prognosis? @ -No Drug Therapy requiring intensive monitoring for toxicity (Heparin, Nitro, Insulin, Cardizem)? @ -No Were any procedures done? @ -No Diagnosis/symptom? @ -flank pain/back pain Acute, or Chronic, or Acute on Chronic? @ -Acute Uncomplicated (without systemic symptoms) or Complicated (systemic symptoms)? @ -Uncomplicated Side effects of treatment? @ -No Exacerbation, Progression, or Severe Exacerbation? @ -No Poses a threat to life or bodily function? How? (Chest pain, USA, DE, pneumonia, PE, COPD, DKA, ARF, appy, cholecystitis, CVA, Diverticulitis, Homicidal, Suicidal, threat to staff... and all critical care pts) @ -No (Jacki Ortiz) - Lab Data Lab Results 09/19/24 09/19/24 09/19/24 Range/Units 15:36 15:36 15:36 WBC 9.20 (4.50-10.00) 10*3/uL RBC 4.59 (4.10-5.20) 10*6/uL Hgb 13.9 (12.0-15.0) g/dL Hct 40.3 (37.2-46.3) % MCV 87.8 (80.0-97.0) fL MCH 30.3 (27.0-32.0) pg MCHC 34.5 (32.0-37.0) g/dL Plt Count 350 (140-440) 10*3/uL MPV 8.2 L (9.5-12.2) fL Immature Gran % (Auto) 1.2 % Neutrophils % 50.8 % Lymphocytes % 35.9 % Monocytes % 7.3 % Eosinophils % 4.0 % Basophils % 0.8 % Immature Gran # 0.11 H (0.00-0.04) 10*3/uL Neutrophils # 4.68 (1.80-7.70) 10*3/uL Lymphocytes # 3.30 (0.90-5.00) 10*3/uL Monocytes # 0.67 (0.20-1.00) 10*3/uL Eosinophils # 0.37 H (0.04-0.35) 10*3/uL Basophils # 0.07 (0.00-0.10) 10*3/uL Sodium 140 (137-145) mmol/L Potassium 4.1 (3.5-5.1) mmol/L Chloride 102 (98-107) mmol/L Carbon Dioxide 28 (22-30) mmol/L Anion Gap 10 mmol/L BUN 12 (7-17) mg/dL Creatinine 0.84 (0.52-1.04) mg/dL Est GFR (CKD-EPI)AfAm 88 (>60 ml/min/1.73 sqM) Est GFR (CKD-EPI)NonAf 76 (>60 ml/min/1.73 sqM) Glucose 111 H (74-99) mg/dL Plasma Lactic Acid Wayne (0.7-2.0) mmol/L Calcium 10.1 (8.4-10.2) mg/dL Total Bilirubin 0.5 (0.2-1.3) mg/dL AST 29 (14-36) U/L ALT 28 (4-34) U/L Alkaline Phosphatase 122 (38-126) U/L Total Protein 7.6 (6.3-8.2) g/dL Albumin 4.5 (3.5-5.0) g/dL Lipase 66 (23-300) U/L Urine Color Yellow Urine Appearance Clear (Clear) Urine pH 6.0 (5.0-8.0) Ur Specific Marcus 1.026 (1.001-1.035) Urine Protein Trace H (Negative) Urine Glucose (UA) Negative (Negative) Urine Ketones Negative (Negative) Urine Blood Negative (Negative) Urine Nitrite Negative (Negative) Urine Bilirubin Negative (Negative) Urine Urobilinogen 2.0 (<2.0) mg/dL Ur Leukocyte Esterase Negative (Negative) 09/19/24 Range/Units 15:36 WBC (4.50-10.00) 10*3/uL RBC (4.10-5.20) 10*6/uL Hgb (12.0-15.0) g/dL Hct (37.2-46.3) % MCV (80.0-97.0) fL MCH (27.0-32.0) pg MCHC (32.0-37.0) g/dL Plt Count (140-440) 10*3/uL MPV (9.5-12.2) fL Immature Gran % (Auto) % Neutrophils % % Lymphocytes % % Monocytes % % Eosinophils % % Basophils % % Immature Gran # (0.00-0.04) 10*3/uL Neutrophils # (1.80-7.70) 10*3/uL Lymphocytes # (0.90-5.00) 10*3/uL Monocytes # (0.20-1.00) 10*3/uL Eosinophils # (0.04-0.35) 10*3/uL Basophils # (0.00-0.10) 10*3/uL Sodium (137-145) mmol/L Potassium (3.5-5.1) mmol/L Chloride (98-107) mmol/L Carbon Dioxide (22-30) mmol/L Anion Gap mmol/L BUN (7-17) mg/dL Creatinine (0.52-1.04) mg/dL Est GFR (CKD-EPI)AfAm (>60 ml/min/1.73 sqM) Est GFR (CKD-EPI)NonAf (>60 ml/min/1.73 sqM) Glucose (74-99) mg/dL Plasma Lactic Acid Wayne 1.1 (0.7-2.0) mmol/L Calcium (8.4-10.2) mg/dL Total Bilirubin (0.2-1.3) mg/dL AST (14-36) U/L ALT (4-34) U/L Alkaline Phosphatase (38-126) U/L Total Protein (6.3-8.2) g/dL Albumin (3.5-5.0) g/dL Lipase (23-300) U/L Urine Color Urine Appearance (Clear) Urine pH (5.0-8.0) Ur Specific Marcus (1.001-1.035) Urine Protein (Negative) Urine Glucose (UA) (Negative) Urine Ketones (Negative) Urine Blood (Negative) Urine Nitrite (Negative) Urine Bilirubin (Negative) Urine Urobilinogen (<2.0) mg/dL Ur Leukocyte Esterase (Negative) Disposition <Maryse Johnson - Last Filed: 09/19/24 14:42> Is patient prescribed a controlled substance at d/c from ED?: No Time of Disposition: 17:31 <Jacki Ortiz - Last Filed: 09/20/24 06:42> Clinical Impression: Flank pain Disposition: HOME SELF-CARE Condition: Stable Instructions (If sedation given, give patient instructions): Flank Pain (ED) Additional Instructions: Please return to the Emergency Department if symptoms worsen or any other concerns. Prescriptions: Ibuprofen [Motrin] 800 mg PO Q8HR PRN #30 tab PRN Reason: Pain Referrals: aNsim Lloyd MD [Primary Care Provider] - 1-2 days
[2024-09-19 15:45] LABS: Basophils # (A) 0.07 10*3/uL (0.00-0.10); Basophils % (A) 0.8 %; Eosinophils # (A) 0.37 10*3/uL (0.04-0.35); HCT 40.3 % (37.2-46.3); HGB 13.9 g/dL (12.0-15.0); Lymphocytes % (A) 35.9 %; MCH 30.3 pg (27.0-32.0); MCHC 34.5 g/dL (32.0-37.0); MCV 87.8 fL (80.0-97.0); Mean Platelet Volume 8.2 fL (9.5-12.2); Monocytes # (A) 0.67 10*3/uL (0.20-1.00); Monocytes % (A) 7.3 %; Neutrophils # (A) 4.68 10*3/uL (1.80-7.70); Neutrophils % (A) 50.8 %; Platelet Count 350 10*3/uL (140-440); RBC 4.59 10*6/uL (4.10-5.20); RDW 14.8 % (11.5-14.5)
[2024-09-19 15:47] LABS: Appearance,Urine Clear (Clear); Bilirubin,Urine Negative (Negative); Blood,Urine Negative (Negative); Color,Urine Yellow; Glucose,Urine (UA) Negative (Negative); Ketones,Urine Negative (Negative); Leukocyte Esterase,Urine Negative (Negative); Nitrite,Urine Negative (Negative); Protein,Urine Trace (Negative); Specific Gravity,Urine 1.026 (1.001-1.035)
[2024-09-19 16:14] LABS: ALT 28 U/L (4-34); AST 29 U/L (14-36); African American GFR (CKD) 88 (>60 ml/min/1.73 sqM); Albumin 4.5 g/dL (3.5-5.0); Alkaline Phosphatase 122 U/L (38-126); Anion Gap 10 mmol/L; Blood Urea Nitrogen 12 mg/dL (7-17); Calcium 10.1 mg/dL (8.4-10.2); Carbon Dioxide 28 mmol/L (22-30); Chloride 102 mmol/L (98-107); Glucose 111 mg/dL (74-99); Lipase 66 U/L (23-300); Non-African American GFR(CKD) 76 (>60 ml/min/1.73 sqM); Potassium 4.1 mmol/L (3.5-5.1); Sodium 140 mmol/L (137-145); Total Bilirubin 0.5 mg/dL (0.2-1.3); Total Protein 7.6 g/dL (6.3-8.2)
--- NOTE | 2024-09-19 16:48 | CT ---
EXAMINATION TYPE: CT abdomen pelvis wo con DATE OF EXAM: 09/19/2024 4:34 PM COMPARISON: CT abdomen pelvis most recent from 12/25/2022. CLINICAL INDICATION: Female, 58 years old with history of Right flank pain; right flank pain TECHNIQUE: Axial CT abdomen pelvis wo con;Sagittal and coronal reformats were created on a separate workstation. Contrast used: mL of , (none if empty) Oral contrast used: with Oral Contrast (none if empty) CT DLP: 573.9 mGycm, Automated exposure control for dose reduction was used. FINDINGS: LOWER CHEST: Unremarkable ABDOMEN LIVER: Diffusely hypoattenuating parenchyma. GALLBLADDER AND BILE DUCTS: The gallbladder is surgically absent. PANCREAS: r SPLEEN: Unremarkable. ADRENAL GLANDS: Unremarkable. KIDNEYS AND URETERS: No evidence of hydronephrosis or obstructing renal calculus. The ureters are unr emarkable. 14 mm left renal cortical cyst. No follow up recommended. PELVIS BLADDER: No evidence for wall thickening or mass given limitations of exam. REPRODUCTIVE: Unremarkable. ABDOMEN & PELVIS STOMACH AND BOWEL: No evidence of bowel obstruction. Appendix is visualized and normal. PERITONEUM/RETROPERITONEUM: No evidence of pneumoperitoneum or free fluid. VASCULATURE: No evidence of aortic aneurysm. MUSCULOSKELETAL: No acute osseous abnormalities. Moderate disc degeneration changes are present throu ghout the thoracolumbar spine. LYMPH NODES: No gross evidence for lymphadenopathy. SOFT TISSUE/ABDOMINAL WALL: Fat-containing umbilical hernia. IMPRESSION: 1. No evidence for acute abdominal process. 2. The appendix is normal. 3. No obstructive uropathy or renal calculus. [facility], , 09/19/2024 4:46 PM
[2024-09-19 17:41] VITALS: BP 108/60; PULSE 61; RESP 19; TEMP 98.4
[2024-09-19] MEDS: KETOROLAC 15 MG/ML 1 ML VIAL IM STA (17:41)
== END 2024-09-19 18:02 | disposition home or self-care (01) ==
LOC: EC 14:16
DX: R10.9 Unspecified abdominal pain (principal); F17.200 Nicotine dependence, unspecified, uncomplicated
CPT/HCPCS: 36415; 80053; 83605; 83690; 85025; 81003; 74176; 99284; 96372; J1885

== ENCOUNTER → 2024-11-05 | Outpatient (CLI) | payer OTHER ==
[2024-11-05 19:51] LABS: ALT 30 U/L (8-44); AST 28 U/L (13-35); Albumin 4.4 g/dL (3.8-4.9); Albumin/Globulin Ratio 1.57 Ratio (1.60-3.17); Alkaline Phosphatase 155 U/L (41-126); Anion Gap 11.90 mmol/L (4.00-12.00); BUN/Creat Ratio 11.12 Ratio (12.00-20.00); Blood Urea Nitrogen 8.9 mg/dL (9.0-27.0); Calcium 9.5 mg/dL (8.7-10.3); Carbon Dioxide 26.1 mmol/L (21.6-31.8); Chloride 103 mmol/L (96-109); Cholesterol 171.00 mg/dL (0.00-200.00); Globulin 2.8 g/dL (1.6-3.3); Glucose 86 mg/dL (70-110); HDL Cholesterol 36.00 mg/dL (40.00-60.00); LDL Cholesterol,Calculated 90.4 mg/dL (0.0-131.0); Potassium 4.1 mmol/L (3.5-5.5); Rheumatoid Factor, Qnt <15 IU/mL (0-15); Sodium 141 mmol/L (135-145); T4, Free (Free Thyroxine) 0.96 ng/dL (0.80-1.80); Total Protein 7.2 g/dL (6.2-8.2); Triglycerides 223.00 mg/dL (0.00-149.00); VLDL Calculation 44.60 mg/dL (5.00-40.00)
== END | disposition home or self-care (01) ==
LOC: LABWHC1 13:36
PROVIDERS: ATTEND Nurse Practitioner Family
DX: E78.5 Hyperlipidemia, unspecified (principal); M50.30 Other cervical disc degeneration, unspecified cervical region; F32.A Depression, unspecified
CPT/HCPCS: 36415; 80053; 80061; 82306; 83036; 84439; 84443; 86038; 86140; 86431